=== PATIENT | male | born 1950 | race Caucasian/White ===

== ENCOUNTER 2021-09-14 15:49 | Emergency (ER) | payer MEDICARE, SELFPAY ==
--- NOTE | 2021-09-14 16:47 | ED.MALEGU ---
HPI - Male Genitourinary General Chief complaint: Urogenital-Male Stated complaint: difficulty urinating Time Seen by Provider: 09/14/21 16:23 Source: patient Mode of arrival: ambulatory Limitations: no limitations History of Present Illness HPI Narrative: Patient is a 71-year-old male complaining of unable to fully urinate started today. Patient states that he just dribbling . Patient denies any abdominal pain, back pain, pelvic pain, nausea, vomiting, hematuria, fever or chills. Related Data Home Medications Medication Instructions Recorded Confirmed levetiracetam 1,000 mg tablet 1,000 mg PO Q12H 12/08/19 12/11/19 warfarin 6 mg tablet 5 mg PO 2XW 12/08/19 12/11/19 Allergies Allergy/AdvReac Type Severity Reaction Status Date / Time Penicillins Allergy Unknown Shock Verified 09/14/21 14:42 Review of Systems Review of Systems: All systems reviewed & are unremarkable except as noted in HPI and below Constitutional: Constitutional: Denies body ache(s), Denies chills, Denies excessive sweating, Denies fatigue, Denies fever(s), Denies headache(s), Denies lethargy, Denies malaise, Denies weakness and Denies weight loss Eyes: Eyes: Denies blurry vision, Denies change in vision and Denies loss of vision ENT: Denies dizziness, Denies ear discharge, Denies headache(s), Denies lip swelling, Denies epistaxis, Denies nasal congestion, Denies neck pain, Denies throat swelling and Denies tongue swelling Cardiovascular: Cardiovascular: Denies chest pain, Denies chest pain at rest, Denies chest pain with activity, Denies diaphoresis, Denies rapid heart rate, Denies edema, Denies irregular heart rhythm, Denies lightheadedness, Denies palpitations, Denies dyspnea and Denies dyspnea on exertion Respiratory: Respiratory: Denies chest congestion, Denies cough, Denies hemoptysis, Denies dyspnea and Denies dyspnea on exertion Gastrointestinal: Gastrointestinal: Denies abdominal pain, Denies melena, Denies hematochezia, Denies diarrhea, Denies nausea, Denies vomiting and Denies hematemesis Musculoskeletal: Musculoskeletal: Denies abnormal gait, Denies deformity, Denies joint swelling, Denies limited range of motion, Denies neck pain and Denies numbness Neurologic: Denies Abnormal speech present, Denies abnormal gait, Denies confusion, Denies dizziness, Denies headache(s), Denies focal weakness, Denies loss of vision, Denies numbness, Denies Other visual disturbances, Denies Sensory deficit (Neuro) and Denies weakness Psychiatric: Psychiatric: Denies confusion, Denies depression, Denies auditory hallucinations, Denies homicidal ideation and Denies suicidal ideation Endocrine: Endocrine: Denies cold intolerance, Denies excessive sweating, Denies fatigue, Denies heat intolerance and Denies palpitations Hematologic/Lymphatic: Hematologic/Lymphatic: Denies easy bleeding and Denies easy bruising Allergic/Immunologic: Allergic/Immunologic: Denies lip swelling, Denies throat swelling and Denies tongue swelling PMFSH Past Medical History Medical History Anemia Depression DVT (deep venous thrombosis) Essential (primary) hypertension GERD (gastroesophageal reflux disease) 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
[2021-09-14 18:02] VITALS: BP 171/96; PULSE 81; TEMP 36.6; O2SAT 100
[2021-09-14 18:44] VITALS: BP 138/90; PULSE 81; RESP 18; O2SAT 99
[2021-09-14 19:20] LABS: Add Urine Microscopic? YES; Appearance Urine Cloudy (Clear); Bilirubin Urine 1+ (Negative); Blood Urine 3+ (Negative); Color Urine Amber (Yellow); Glucose Urine UA Negative (Negative); Ketones Urine 2+ mg/dL (Negative); Leukocyte Esterase Ur 1+ LEU/UL (Negative); Mucus Urine Heavy /lpf; Nitrate Urine Negative (Negative); Protein Urine 2+ mg/dL (Negative); RBC Urine >75 /hpf (0-2); Squamous Epithelial Cell Urine Rare /hpf (Few); WBC Urine 51-75 /hpf
[2021-09-14 19:39] VITALS: BP 128/90; PULSE 78; RESP 18; O2SAT 98
[2021-09-14] MEDS: CEPHALEXIN 500 MG CAPSULE PO (19:41)
== END 2021-09-14 20:04 | disposition home or self-care (01) ==
PROVIDERS: Emergency Provider Emergency Medicine; PCP Family Medicine
DX: N30.01 Acute cystitis with hematuria (principal); I10 Essential (primary) hypertension; I69.954 Hemiplegia and hemiparesis following unspecified cerebrovascular disease affecting left non-dominant side; E78.5 Hyperlipidemia, unspecified; I48.0 Paroxysmal atrial fibrillation; G62.9 Polyneuropathy, unspecified; K21.9 Gastro-esophageal reflux disease without esophagitis; Z79.01 Long term (current) use of 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; Z86.2 Personal history of diseases of the blood and blood-forming organs and certain disorders involving the immune mechanism; Z86.718 Personal history of other venous thrombosis and embolism; Z87.891 Personal history of nicotine dependence
CPT/HCPCS: 51702; 81001; 87077; 87086; 87088; 87186; 99283; A9270

== ENCOUNTER → 2022-06-06 13:59 | Outpatient (CLI) | payer MEDICARE, SELFPAY ==
--- NOTE | ~2022-06-06 | XR_ITS ---
XR chest 2V DATE: 06/06/2022 14:47 INDICATION: Cough TECHNIQUE: 2 views COMPARISON: 12/11/2021 view chest FINDINGS: Heart size is within normal limits. Is aortic arch calcification, mild aortic unfolding. No hilar or mediastinal enlargement. Moderate hyperinflation of the lungs. No pulmonary infiltrate or consolidation, pleural effusion or p ulmonary vascular congestion or pneumothorax is detected. IMPRESSION: Bilateral hyperinflation No active cardiac pulmonary disease Aortic atherosclerosis Osteopenia Reviewed, dictated and finalized at location A.
== END ==
PROVIDERS: PCP Family Medicine; Visit Provider Physician Assistant
DX: R05.9 Cough, unspecified (principal); R91.8 Other nonspecific abnormal finding of lung field; I70.0 Atherosclerosis of aorta; M85.88 Other specified disorders of bone density and structure, other site
CPT/HCPCS: 71046

== ENCOUNTER 2022-09-16 10:26 | Emergency (ER) | payer MEDICARE, SELFPAY ==
--- NOTE | ~2022-09-16 | CT_ITS ---
EXAMINATION: CT abdomen pelvis wo con DATE: 09/16/2022 11:04 INDICATION: Back pain and flank pain. TECHNIQUE: Computed tomography (CT) of the abdomen and pelvis was performed without intravenous contr ast. The dose-length product was 1571.63 mGy-cm. Automated exposure control and iterative reconstruct ion technique were employed. COMPARISON: CT dated 12/11/2019. FINDINGS: Cardiomegaly. No significant pleural or pericardial effusion. There are liver cysts. There are cholecystectomy clips. The spleen, pancreas, adrenal glands are unremarkable. There are nonobstru cting left renal stones. There are right ureteral stones with mild hydronephrosis. There are nonobstr ucting right renal stones. There is an intermediate density exophytic right renal mass measuring 1.7 cm which does not appear to be significantly changed from prior CT allowing for differences of techni que, likely a complicated cyst. There is an IVC filter present. Nonobstructive bowel gas pattern. Nor mal appendix. No free air or free fluid. Moderate osteoarthritis of the hips. Severe lumbar spondylos is. The spleen, pancreas, adrenal glands are unremarkable. No significant vascular abnormality. No ly mphadenopathy. IMPRESSION: 1. Proximal right ureteral stones, largest measuring 3 mm with mild hydronephrosis. 2: Nonobstructing bilateral nephrolithiasis. 3: Intermediate density exophytic right renal mass is unchanged allowing for differences of technique from prior study, most likely complicated cysts. Reviewed, dictated and finalized at location B. IMPRESSION: 1. Proximal right ureteral stones, largest measuring 3 mm with mild hydronephro sis. 2: Nonobstructing bilateral nephrolithiasis. 3: Intermediate density exophytic right renal mass is unchanged allowing for di fferences of technique from prior study, most likely complicated cysts.
[2022-09-16 10:33] VITALS: BP 143/103; PULSE 78; RESP 18; TEMP 36.4; O2SAT 100
[2022-09-16 10:55] LABS: Add Urine Microscopic? YES; Appearance Urine Cloudy (Clear); Bilirubin Urine Negative (Negative); Blood Urine 3+ (Negative); Color Urine Amber (Yellow); Glucose Urine UA Negative (Negative); Ketones Urine Trace mg/dL (Negative); Leukocyte Esterase Ur Negative LEU/UL (Negative); Nitrate Urine Negative (Negative); Protein Urine 2+ mg/dL (Negative); RBC Urine >75 /hpf (0-2); Urobilinogen Urine Negative mg/dL (<2.0); WBC Urine 0-3 /hpf
[2022-09-16 11:08] LABS: Specific Grav Ur 1.031 (1.001-1.035)
[2022-09-16 11:25] LABS: Basophils Percent Auto 0.3 % (0.2-1.2); Eosinophils Absolute Auto 0.1 K/mm3 (0-0.3); Eosinophils Percent Auto 1.1 % (0-4.4); Hematocrit 46.5 % (42.0-52.0); Hemoglobin 15.1 g/dL (14.0-18.0); Immature Granulocyte Absolute 0.02 K/mm3 (0.00-0.031); Immature Granulocyte Percent A 0.3 % (0-0.5); Lymphocytes Absolute Auto 2.04 K/mm3 (0.9-3.2); Lymphocytes Percent Auto 28.8 % (18.3-44.2); Mean Corpuscular HGB Conc 32.5 g/dl (32-36); Mean Corpuscular Hemoglobin 29.9 pg (26-34); Mean Corpuscular Volume 92.1 fl (80-100); Mean Platelet Volume 9.1 fl (7.4-10.4); Monocytes Absolute Auto 0.6 K/mm3 (0.1-0.6); Monocytes Percent Auto 8.2 % (2.6-8.5); Neutrophils Absolute Auto 4.3 K/mm3 (1.3-6.7); Neutrophils Percent Auto 61.3 % (45.5-73.1); Platelet Count Result 124 k/mm3 (150-375); Red Blood Count 5.05 M/mm3 (4.6-6.20); Red Cell Distribution Width 14.3 % (11.5-14.5); White Blood Count 7.1 K/mm3 (4.5-10.0)
[2022-09-16] MEDS: MORPHINE SULFATE (*CRX) 4 MG/ML INJ IV PUSH (11:28)
[2022-09-16 11:40] LABS: Partial Thromboplastin Time 41.5 SECONDS (22.3-36.8)
[2022-09-16 11:47] LABS: Alanine Aminotransferase 11 U/L (6-50); Albumin Level 3.5 g/dL (3.5-5.1); Alkaline Phosphatase 84 U/L (38-126); Anion Gap 8 mmol/L (8-16); Aspartate Amino Transferase 16 U/L (17-59); Bilirubin,Total 1.5 mg/dL (0.2-1.3); Blood Urea Nitrogen 27 mg/dL (9-20); Calcium 8.2 mg/dL (8.4-10.2); Carbon Dioxide 25 mmol/L (22-30); Chloride 107 mmol/L (98-107); Estimated CRCL calculation 65 ml/min; Estimated Glomerular Filt Rate > 60; Glucose 101 mg/dL (65-110); Potassium 4.3 mmol/L (3.4-5.0); Sodium 140 mmol/L (137-145)
--- NOTE | 2022-09-16 12:37 | ED.MALEGU ---
HPI - Male Genitourinary General Chief complaint: Urogenital-Male Stated complaint: hematuria Time Seen by Provider: 09/16/22 10:29 History of Present Illness HPI Narrative: Patient presents with severe bilateral flank pain and hematuria that started last night, no burning or pain when he urinates, he has had history of UTIs in the past but this feels different, no history of kidney stones in the past. He is currently on Coumadin. Related Data Home Medications Medication Instructions Recorded Confirmed warfarin 6 mg tablet (Coumadin) 5 mg PO 2XW 12/08/19 04/25/22 diphenhydramine HCl 25 mg tablet 25 mg PO QHS PRN 04/03/22 04/25/22 (Benadryl Allergy) sotalol 120 mg tablet 120 mg PO Q12H 04/25/22 04/25/22 Allergies Allergy/AdvReac Type Severity Reaction Status Date / Time Penicillins Allergy Unknown Shock Verified 09/16/22 10:35 Review of Systems Review of Systems: CONST: No fever. HEENT: No sore throat C/V: No chest pain RESP: No cough GI: Reports abdominal pain : Hematuria M/S: No joint pain. SKIN: No rash. 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 Major depressive disorder, single episode, unspecified 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 hyperlipidemia Peripheral neuropathy Personal history of other venous thrombosis and embolism Pyelonephritis Seizure Strain of lumbar region Unspecified atrial fibrillation Paroxysmal UTI (urinary tract infection) Surgical History Surgical History H/O craniotomy Status post hemorrhagic stroke H/O vasectomy History of cholecystectomy History of repair of anterior cruciate ligament of right knee S/P IVC filter Family History Family History Father Family history of cardiovascular disease Mother Family history of malignant neoplasm of breast in first degree relative Other Cerebrovascular accident Depression Family history of atrial fibrillation Family history of elevated blood lipids Family history of kidney disease Family history of malignant neoplasm of breast Hypertension Social History Social History Social History: The patient lives with his who is a [id number]. Patient desires to be a full code. His 3 daughter. 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 Rarely drinks lifelong nonsmoker. Smoking status: Never smoker Second hand tobacco smoke exposure: No Smoking end date: 11/24/73 Alcohol intake: current Drinks per week: 1 Substance use: never Substance use type: does not use Gender identity (if verbalized by the patient): Male Spiritual care concerns: No Agree to blood products: Yes Exam Narrative: EXAMINATION OF ORGAN SYSTEMS/BODY AREAS: Constitutional: Vital signs per nursing GENERAL: Appears uncomfortable HEAD: Normal with no signs of head trauma. EYES: EOMI, conjunctiva normal ENT: Hearing grossly intact LUNGS: Nonlabored breathing. HEART: [Regular rate and rhythm] ABD: [Soft], [nontender to palpation] BACK: Right CVA tenderness EXT: Normal range of motion SKIN: [No rashes or lesions.] NEURO: [Alert.] PSYCH: Normal affect Course Vital Signs Vital signs: Vital Signs Temperature 97.6 F 09/16/22 10:33 Pulse Rate 78 09/16/22 10:33 Respiratory Rate 18 09/16/22 10:33 Blood Pressure 143/103 H 09/16/22 10:33 Pulse Oximetry 100
[2022-09-16 12:46] VITALS: BP 135/88; PULSE 61; RESP 17; O2SAT 95
== END 2022-09-16 12:51 | disposition home or self-care (01) ==
PROVIDERS: Emergency Provider Emergency Medicine; PCP Family Medicine
DX: N13.2 Hydronephrosis with renal and ureteral calculous obstruction (principal); I48.0 Paroxysmal atrial fibrillation; I10 Essential (primary) hypertension; I69.954 Hemiplegia and hemiparesis following unspecified cerebrovascular disease affecting left non-dominant side; E78.5 Hyperlipidemia, unspecified; G62.9 Polyneuropathy, unspecified; K21.9 Gastro-esophageal reflux disease without esophagitis; Z86.718 Personal history of other venous thrombosis and embolism; Z86.2 Personal history of diseases of the blood and blood-forming organs and certain disorders involving the immune mechanism; Z79.01 Long term (current) use of 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; Z87.440 Personal history of urinary (tract) infections; N28.89 Other specified disorders of kidney and ureter
CPT/HCPCS: 36415; 74176; 80053; 81001; 85025; 85610; 85730; 96374; 99284; J2270

== ENCOUNTER 2022-09-18 06:23 | Observation (INO) | payer MEDICARE, SELFPAY ==
[2022-09-18] VITALS (34 sets, daily range): BP systolic 130–163; BP diastolic 83–101; PULSE 64–81; RESP 10–20; TEMP 36.5–37.3; O2SAT 94–100
--- NOTE | ~2022-09-18 | XR_ITS ---
EXAMINATION: XR retrograde pyelo w/stent RT DATE: 09/18/2022 16:16 INDICATION: Right internal ureteral stent placement TECHNIQUE: Fluoroscopic images from a right internal ureteral stent placement are submitted for obey zaragoza 40 seconds of fluoroscopy time. 6 fluoroscopic images. FINDINGS: There is a right double-J internal ureteral stent projecting in expected position, with proximal Sparkill loop at the level of the renal pelvis and distal loop in the pelvis within the bladder lumen. There is an IVC filter present. IMPRESSION: 1. Right internal ureteral stent placement. Please refer to real-time procedural findings for detai ls. Reviewed, dictated and finalized at location B. IMPRESSION: 1. Right internal ureteral stent placement. Please refer to real-time procedu ral findings for details.
--- NOTE | ~2022-09-18 | CT_ITS ---
EXAMINATION: CT abdomen pelvis wo con DATE: 09/18/2022 07:53 INDICATION: Flank pain. History of kidney stones. TECHNIQUE: Computed tomography (CT) of the abdomen and pelvis was performed without intravenous contr ast. The dose-length product was 720.30 mGy-cm. Automated exposure control and iterative reconstructi on technique were employed. COMPARISON: Comparison to multiple prior studies sequentially, with oldest reviewed study dated 03/2018. . FINDINGS: There is dependent atelectasis. No significant pleural or pericardial effusion. Borderline heart size. There are liver cysts, largest measuring 3 cm. Status post cholecystectomy. Th e spleen, pancreas, adrenal glands are unremarkable. There is a exophytic right renal cyst measuring 1.9 cm. No significant interval change. There is a 4 mm distal right ureteral stone with mild hydrone phrosis. There is an IVC filter present. There are nonobstructing left renal stones. Nonobstructive b owel gas pattern. There is atrophy of the left rectus muscles. There is a right inguinal hernia conta ining nonobstructed small bowel. No free air or free fluid. Severe lumbar spondylosis. Stable lytic l esion of L2, possibly hemangioma. No acute osseous abnormality. Normal appendix. Generalized deminera lization. Moderate osteoarthritis of the hips. IMPRESSION: 1. Distal right ureteral stone measuring 4 mm with mild hydronephrosis. 2: Nonobstructing left nephrolithiasis. 3: Right inguinal hernia containing nonobstructed small bowel. Reviewed, dictated and finalized at location B.
--- NOTE | 2022-09-18 07:21 | ED.BACK ---
HPI - Back Pain/Injury General Chief Complaint: Back Pain/Injury Stated Complaint: Kidney stones, R side Time Seen by Provider: 09/18/22 07:21 Source: patient and family Mode of arrival: ambulatory Limitations: no limitations History of Present Illness HPI Narrative: 72 years old white male came to the emergency room by private car with his complaining of right flank pain which started 4 days ago, 1 day later patient came to our emergency room and CT scan showed right proximal ureter, 3 mm stone. Patient was discharged home to follow-up with urologist, the first appointment will be in 2 weeks. Patient could not tolerate the pain anymore, home medicine does not work, he denies any fever, chills, nausea, vomiting. Related Data Home Medications Medication Instructions Recorded Confirmed warfarin 6 mg tablet (Coumadin) 5 mg PO 2XW 12/08/19 04/25/22 diphenhydramine HCl 25 mg tablet 25 mg PO QHS PRN 04/03/22 04/25/22 (Benadryl Allergy) sotalol 120 mg tablet 120 mg PO Q12H 04/25/22 04/25/22 Allergies Allergy/AdvReac Type Severity Reaction Status Date / Time Penicillins Allergy Unknown Shock Verified 09/16/22 10:35 Review of Systems Review of Systems: All systems reviewed & are unremarkable except as noted in HPI and below PMFSH Past Medical History Medical History Anemia Depression DVT (deep venous thrombosis) Essential (primary) hypertension GERD (gastroesophageal reflux disease) Hemiplegia and hemiparesis following unspecified cerebrovascular disease affecting left non-dominant side Hepatitis C antibody test negative (10/25/20) Lipoprotein deficiency longterm (current) use of 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 Major depressive disorder, single episode, unspecified 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 hyperlipidemia Peripheral neuropathy Personal history of other venous thrombosis and embolism Pyelonephritis Seizure Strain of lumbar region Unspecified atrial fibrillation Paroxysmal UTI (urinary tract infection) Surgical History Surgical History H/O craniotomy Status post hemorrhagic stroke H/O vasectomy History of cholecystectomy History of repair of anterior cruciate ligament of right knee S/P IVC filter Family History Family History Father Family history of cardiovascular disease Mother Family history of malignant neoplasm of breast in first degree relative Other Cerebrovascular accident Depression Family history of atrial fibrillation Family history of elevated blood lipids Family history of kidney disease Family history of malignant neoplasm of breast Hypertension Social History Social History Social History: The patient lives with his who is a [id number]. Patient desires to be a full code. His 3 daughter. 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 Rarely drinks lifelong nonsmoker. Smoking status: Never smoker Second hand tobacco smoke exposure: No Smoking end date: 11/24/73 Alcohol intake: current Drinks per week: 1 Substance use: never Substance use type: does not use Gender identity (if verbalized by the patient): Male Spiritual care concerns: No Agree to blood products: Yes Exam Narrative: General appearance: Well-developed, well-nourished Skin: Normal color Head: Normocephalic, nontraumatic Eyes: Clear conjunctiva ENT: Oropharynx normal, ears normal, nose normal Neck: Supple, nontender Chest and respiratory: Airway patent, no respiratory distress, no accessory muscle use Heart: Regular rate/rhythm Abdomen: Soft, right flank tenderness, no organomegaly, quiet bowel sounds Vascular: Normal peripheral pulses, normal capillary refill. Musculoskeletal: Normal range of motion, nontender back Neurologic: Alert
[2022-09-18 07:26] LABS: Basophils Absolute Auto 0.1 K/mm3 (0.0-0.1); Basophils Percent Auto 0.5 % (0.2-1.2); Eosinophils Absolute Auto 0.1 K/mm3 (0-0.3); Eosinophils Percent Auto 1.3 % (0-4.4); Hematocrit 48.3 % (42.0-52.0); Hemoglobin 15.5 g/dL (14.0-18.0); Immature Granulocyte Absolute 0.03 K/mm3 (0.00-0.031); Immature Granulocyte Percent A 0.3 % (0-0.5); Lymphocytes Absolute Auto 2.29 K/mm3 (0.9-3.2); Lymphocytes Percent Auto 24.5 % (18.3-44.2); Mean Corpuscular HGB Conc 32.1 g/dl (32-36); Mean Corpuscular Hemoglobin 29.9 pg (26-34); Mean Corpuscular Volume 93.2 fl (80-100); Mean Platelet Volume 9.5 fl (7.4-10.4); Monocytes Absolute Auto 0.7 K/mm3 (0.1-0.6); Monocytes Percent Auto 7.4 % (2.6-8.5); Neutrophils Absolute Auto 6.2 K/mm3 (1.3-6.7); Platelet Count Result 153 k/mm3 (150-375); Red Blood Count 5.18 M/mm3 (4.6-6.20); Red Cell Distribution Width 14.6 % (11.5-14.5); White Blood Count 9.4 K/mm3 (4.5-10.0)
[2022-09-18] MEDS: HYDROmorphone HCL INJ (*CRX) 1 MG/ML SYR 0.5 MG IV PUSH ×3 (07:29→09:13)
[2022-09-18] MEDS: SODIUM CHLORIDE 0.9% IV 1,000 ML 999 ML IV CONT (07:29)
[2022-09-18] MEDS: ONDANSETRON INJ 4 MG/2 ML VIAL IV PUSH (07:30)
[2022-09-18 07:36] LABS: Alanine Aminotransferase 10 U/L (6-50); Albumin Level 3.8 g/dL (3.5-5.1); Alkaline Phosphatase 79 U/L (38-126); Anion Gap 12 mmol/L (8-16); Aspartate Amino Transferase 16 U/L (17-59); Bilirubin,Total 0.9 mg/dL (0.2-1.3); Blood Urea Nitrogen 29 mg/dL (9-20); Calcium 8.2 mg/dL (8.4-10.2); Carbon Dioxide 26 mmol/L (22-30); Chloride 106 mmol/L (98-107); Estimated Glomerular Filt Rate 60; Glucose 99 mg/dL (65-110); Lipase 76 U/L (23-300); Sodium 144 mmol/L (137-145)
[2022-09-18 07:47] LABS: Add Urine Microscopic? YES; Appearance Urine Cloudy (Clear); Bilirubin Urine Negative (Negative); Blood Urine 3+ (Negative); Color Urine Amber (Yellow); Glucose Urine UA Negative (Negative); Ketones Urine Trace mg/dL (Negative); Leukocyte Esterase Ur Negative LEU/UL (Negative); Mucus Urine Rare /lpf; Nitrate Urine Negative (Negative); Protein Urine 2+ mg/dL (Negative); RBC Urine >75 /hpf (0-2); Specific Grav Ur 1.029 (1.001-1.035); Squamous Epithelial Cell Urine Occasional /hpf (Few); Urobilinogen Urine Negative mg/dL (<2.0); WBC Urine 16-20 /hpf
--- NOTE | 2022-09-18 10:26 | WPDANESEPPF ---
Anes - Initial Pre Proc Eval Procedure: Operation Date: 09/18/22 16:00 Proposed Procedures p Cystoscopy, Retrograde Pyelogram, Possible Right Stone Extraction, Possible Right Stent Placement; Possible Holmium Laser(Right) - Trace Krishnamurthy MD Date/Time: 09/18/22 10:26 Surgeon: Suzy Casey DO Pre Op Diagnosis: rigth ureterolithiasis,hematuria Patient Data Age: 72 Gender: M Height: Weight: 97.7 kg Last Vital Signs Temp 36.7 C 09/18/22 06:27 Pulse 70 09/18/22 10:17 Resp 12 09/18/22 10:15 BP 150/101 H 09/18/22 10:17 Pulse Ox 94 09/18/22 10:15 Allergies Allergy/AdvReac Type Severity Reaction Status Date / Time Penicillins Allergy Unknown Shock Verified 09/16/22 10:35 Home Medications Medication Instructions Recorded Confirmed Type warfarin 6 mg tablet (Coumadin) 5 mg PO 2XW 12/08/19 09/18/22 History acetaminophen 500 mg tablet 1,000 mg PO Q6H PRN Mild Pain 12/17/19 09/18/22 Rx (1-3) Or Fever #30 tabs tamsulosin 0.4 mg capsule (Flomax) 0.4 mg PO DAILY #90 caps 02/18/22 09/18/22 Rx simvastatin 40 mg tablet See Rx Instructions .Route 02/25/22 09/18/22 Rx .COMPLEX #90 tabs diphenhydramine HCl 25 mg tablet 25 mg PO QHS PRN Allergy Symptoms 04/03/22 09/18/22 History (Benadryl Allergy) fluticasone propionate 50 See Rx Instructions .Route 04/03/22 09/18/22 Rx mcg/actuation nasal .COMPLEX #48 grams spray,suspension sotalol 120 mg tablet 120 mg PO Q12H 04/25/22 09/18/22 History levetiracetam 1,000 mg tablet See Rx Instructions .Route 05/22/22 09/18/22 Rx .COMPLEX #180 tabs fluticasone 250 mcg-salmeterol 50 1 inh inhalation BID #60 ea 06/06/22 09/18/22 Rx mcg/dose blistr powdr for inhalation (Advair Diskus) benzonatate 200 mg capsule 200 mg PO TID PRN cough #30 caps 06/18/22 09/18/22 Rx omeprazole 20 mg capsule,delayed See Rx Instructions .Route 08/26/22 09/18/22 Rx release .COMPLEX #90 caps irbesartan 75 mg tablet See Rx Instructions .Route 09/02/22 09/18/22 Rx .COMPLEX #90 tabs finasteride 5 mg tablet See Rx Instructions .Route 09/09/22 09/18/22 Rx .COMPLEX #90 tabs hydrocodone 5 mg-acetaminophen 325 1 tablet PO Q6H PRN pain #12 tabs 09/16/22 09/18/22 Rx mg tablet Laboratory Tests 09/18/22 09/18/22 09/18/22 07:13 07:13 07:27 WBC 9.4 K/mm3 K/mm3 (4.5-10.0) RBC 5.18 M/mm3 M/mm3 (4.6-6.20) Hgb 15.5 g/dL g/dL (14.0-18.0) Hct 48.3 % % (42.0-52.0) MCV 93.2 fl fl (80-100) MCH 29.9 pg pg (26-34) MCHC 32.1 g/dl g/dl (32-36) RDW 14.6 % H % (11.5-14.5) Plt Count 153 k/mm3 k/mm3 (150-375) MPV 9.5 fl fl (7.4-10.4) Immature Gran % (Auto) 0.3 % % (0-0.5) Neut % (Auto) 66.0 % % (45.5-73.1) Lymph % (Auto) 24.5 % % (18.3-44.2) [place] % (Auto) 7.4 % % (2.6-8.5) Eos % (Auto) 1.3 % % (0-4.4) Baso % (Auto) 0.5 % % (0.2-1.2) Lymph # (Auto) 2.29 K/mm3 K/mm3 (0.9-3.2) [place] # (Auto) 0.7 K/mm3 H K/mm3 (0.1-0.6) Eos # (Auto) 0.1 K/mm3 K/mm3 (0-0.3) Baso # (Auto) 0.1 K/mm3 K/mm3 (0.0-0.1) Abs Immat Gran (auto) 0.03 K/mm3 K/mm3 (0.00-0.031) Absolute Neuts (auto) 6.2 K/mm3 K/mm3 (1.3-6.7) Absolute Nucleated RBC 0.0 K/mm3 K/mm3 (0.0-0.012) Nucleated RBC % 0.0 % % (0.0-0.2) Sodium 144 mmol/L mmol/L (137-145) Potassium 4.0 mmol/L mmol/L (3.4-5.0) Chloride 106 mmol/L mmol/L (98-107) Carbon Dioxide 26 mmol/L mmol/L (22-30) Anion Gap 12 mmol/L mmol/L (8-16) BUN 29 mg/dL H mg/dL (9-20) Creatinine 1.20 mg/dL mg/dL (0.7-1.3) Estim Creat Clear Calc Not Reportable Estimated GFR 60 (59 - ) Glucose 99 mg/dL mg/dL (65-110) Calcium 8.2 mg/dL L mg/dL (8.4-10.2) Total Bilirubi
--- NOTE | 2022-09-18 10:59 | ADMGEN ---
This patient, René Bowman, was admitted to [facility] Surg Room 325-01 at 1040. Patient/family oriented to hospital policies and general routines including ID bracelet, bed and alarms, visiting hours, pain management, procedures, bathroom and other care routines, personal items, smoking policy, room service/diet, and visiting hours. Information on how to activate the Rapid Response Team has been discussed. Patient/Family are encouraged to report perceived risks to care and to ask questions if they do not understand what they are told or what they should do.
--- NOTE | 2022-09-18 11:37 | ECG_ITS ---
Measurements Intervals [place] Rate: 73 P: 32 MI: 160 QRS: -41 QRSD: 88 T: 106 QT: 399 QTc: 441 Interpretive Statements SINUS RHYTHM LOW QRS VOLTAGE IN PRECORDIAL LEADS [QRS DEFLECTION < 1.0 mV IN CHEST LEADS] INFERIOR MYOCARDIAL INFARCTION , PROBABLY OLD [40+ ms Q WAVE AND/OR ST/T ABNORMALITY IN II/aVF] MODERATE T-WAVE ABNORMALITY, CONSIDER ANTEROLATERAL ISCHEMIA [-0.1+ mV T WAVE IN V3-V6] Electronically Signed On 09-18-2022 13:17:58 CDT by Jose Carlos Quiroz M.D.
--- NOTE | 2022-09-18 13:16 | PM.IMHP ---
H&P: HPI History of Present Illness Date/Time: 09/18/22 13:16 Chief Complaint: Right flank pain Narrative: This is a 72-year-old male patient who came to the emergency room complaints of right flank pain. He was brought in by personal vehicle by his . The patient's discomfort started approximately 4 days ago. The patient came to the emergency room on 09/16/2022 and the patient was found to have a 3 mm stone in the right proximal ureter BS CT scan. The patient was discharged home to follow-up with urology in the next 2 weeks. However the patient was not able to tolerate the discomfort. His home medications were no longer working for him. He denied any fever chills or nausea vomiting. Urine shows greater than 75 RBCs and 16-[address]bc's[address] Ab[address] pelvis [address] was read as distal right ureteral stone measuring 4 mm with mild hydronephrosis. Nonobstructing left nephrolithiasis. Right inguinal hernia containing nonobstructive small bowel. The patient was given IV fluids, Dilaudid, and Zofran in the emergency room. Urology has been consulted. This may be a short-stay summary as the patient may be discharged to home after his procedure. The patient was admitted for observation on the date of service of 09/18/2022. Review of Systems Review of Systems: The HPI All systems reviewed & are unremarkable except as noted in HPI and below Constitutional: Constitutional: Reports as per HPI and Reports no additional constitutional complaints Eyes: Eyes: Reports as per HPI and Reports no additional eye complaints ENT: Reports system reviewed and no additional complaints, except as documented and Reports Normal hearing present Cardiovascular: Cardiovascular: Reports no additional cardiovascular complaints Respiratory: Respiratory: Reports no additional respiratory complaints and Reports no additional respiratory complaints Gastrointestinal: Gastrointestinal: Reports as per HPI and Reports no additional gastrointestinal complaints Musculoskeletal: Musculoskeletal: Reports no additional musculoskeletal complaints Integumentary/Breasts: Skin/Breast: Reports system reviewed and no additional complaints, except as docu and Reports as per HPI Neurologic: Reports system reviewed and no additional complaints, except as documented, Reports as per HPI and Reports Normal hearing present Psychiatric: Psychiatric: Reports no additional psychiatric complaints and Reports as per HPI Endocrine: Endocrine: Reports no additional endocrine complaints Hematologic/Lymphatic: Hematologic/Lymphatic: Reports no additional hematologic/lymphatic complaints Allergic/Immunologic: Allergic/Immunologic: Reports no additional allergic/immunologic complaints PMFSH Past Medical History Medical History Anemia Depression DVT (deep venous thrombosis) Essential (primary) hypertension GERD (gastroesophageal reflux disease) Hemiplegia and hemiparesis following unspecified cerebrovascular disease affecting left non-dominant side Hepatitis C antibody test negative (10/25/20) Lipoprotein deficiency [facility] (current) use of 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 Major depressive disorder, single episode, unspecified 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 hyperlipidemia Peripheral neuropathy Personal history of other venous thrombosis and embolism Pyelonephritis Seizure Strain of lumbar region Unspecified atrial fibrillation Paroxysmal UTI (urinary tract infection) Surgical History Surgical History H/O craniotomy Status post hemorrhagic stroke H/O vasectomy History of cholecystectomy History of repair of anterior cruciate ligament of right knee S/P IVC filter Family History Family History Father Family history of cardiovascular disease Mother Family history of malignant neoplasm of breast in first degree relative Other
--- NOTE | 2022-09-18 14:53 | WPDURCON ---
Assessment and Plan Assessment and plan (1) Kidney stone on right side: Code(s): N20.0 - Calculus of kidney Status: Acute Assessment and Plan: Plan to go to the OR this afternoon with Dr. Krishnamurthy. Obtain consent: Cystoscopy, right ureteroscopy with stone extraction, possible right stent placement, right retrograde pyelogram, possible holmium laser. Keep NPO. Patient could be discharged home after surgery if tolerating diet and pain per hospitalist. Left non obstructive stone is not of concern at this time, will plan to monitor yearly with imaging. (2) Hematuria: Code(s): R31.9 - Hematuria, unspecified Status: Acute Urology Consult Note HPI Date Seen: 09/18/22 Time Seen: 11:00 Requesting Physician: Suzy Casey DO Primary Care Provider: Jose Jacome MD Consult Narrative Reason for consult: Right Distal Ureteral Stone Narrative: René Bowman is a 72 year old male who presented initially to the ER on 09/16/22 with acute onset of bilateral flank pain that started the previous day and hematuria. He was diagnosed with a proximal right ureteral stone via CT scan measuring 4mm. He was discharged home with pain medications and told to f/u with a urologist. He states his pain worsened over the past two days and he was unable to tolerate it at home. He then proceeded to the ER this morning for ongoing, worsening right flank pain that radiates to the RLQ. He is afebrile, has a WBC of 9.4, creatinine of 1.20 and a UA showing only RBC's but no indication of a UTI. He denies dysuria, frequency, urgency or incontinence. He is still having hematuria. He has no history of stones previously. He does mention a history of BPH. A repeat CT shows movement of the stone to the right distal ureter with hydronephrosis present and a non obstructing left renal stone. His also reports at the bedside a history of seizures and a stroke which he has left sided weakness from. Review of Systems Cardiovascular: Cardiovascular: Denies chest pain Respiratory: Respiratory: Reports no additional respiratory complaints Gastrointestinal: Gastrointestinal: Reports abdominal pain, Denies nausea and Denies vomiting Genitourinary: Genitourinary: Reports hematuria, Denies dysuria, Reports flank pain, Denies urinary frequency, Denies urinary incontinence and Denies urinary urgency [facility] Past Medical History Medical History Anemia Depression DVT (deep venous thrombosis) Essential (primary) hypertension GERD (gastroesophageal reflux disease) Hemiplegia and hemiparesis following unspecified cerebrovascular disease affecting left non-dominant side Hepatitis C antibody test negative (10/25/20) Lipoprotein deficiency 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 (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) use of 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 Major depressive disorder, single episode, unspecified 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 hyperlipidemia Peripheral neuropathy Personal history of other venous thrombosis and embolism Pyelonephritis Seizure Strain of lumbar region Unspecified atrial fibrillation Paroxysmal UTI (urinary tract infection) Surgical History Surgical History H/O craniotomy Status post hemorrhagic stroke H/O vasectomy History of cholecystectomy History of repair of anterior cruciate ligament of right knee S/P IVC filter Family History Family History Father Family history of cardiovascular disease Mother Family history of malignant neoplasm of breast in first degree relative Other Cerebrovascular accident Depression Family history of atrial fibrillation Family history of elevated blood lipids Family history of kidney disease Family history of malignant neoplasm of breast Hypertension Social History Social History Social History:
[2022-09-18] MEDS: LACTATED RINGERS 1,000 ML 30 ML IV CONT (15:02)
--- NOTE | 2022-09-18 15:29 | WPDHPUPDATE1 ---
History and Physical Update Update Date/Time: 09/18/22 15:29 History and Physical has been reviewed, including an updated exam of the patient. There are NO changes in the patient's condition. Risks, benefits, and alternatives have been discussed and questions answered. Patient agrees to proceed with procedure.
[2022-09-18] MEDS: ceFAZolin 2 GM/D5W 50 ML 2 GM/50 ML BAG IVPB (15:42)
--- NOTE | 2022-09-18 15:43 | SUR.PREOP ---
DR UNGER ASKED ME TO ORDER GENTAMYCIN, THEN CHANGED IT TO ANCEF.
[2022-09-18] MEDS: LIDOCAINE HCL 2% GEL UROJET 10 ML PKG MUCOUS MEM (16:01)
--- NOTE | 2022-09-18 16:20 | P.OP_ITS ---
Procedure Note - Detailed Date of Procedure 09/18/22 Pre-op Diagnosis Right ureteral stone Post-op Diagnosis Same Procedure Performed Cystoscopy, right ureteroscopy, stone extraction, retrograde pyelogram, right ureteral stent Surgeon Trace Krishnamurthy MD Indications Right distal ureteral stone Findings Right distal ureteral stone removed Description of Procedure Informed consent was obtained. Patient taken the operating. He was given p reoperative IV antibiotics. He was induced anesthesia. He was placed in the dorsal lithotomy position. He was prepped and draped in normal sterile fashion. We inserted a 22 F cystoscope through the urethra into the bladder. Inspection of the bed revealed mild trabeculation. The patient has a small bilobar prostatic hyperplasia. The patient had bilateral orthotopic orifices. We cannulated the right ureteral orifice and then dilate with an 810 coaxial dilator. We then inserted a semi rigid ureteral scope into the distal ureter. We encountered the stone approximately 3cm above the ureterovesical junction and were able to grasp it with a ZeroTip Nitinol basket and remove the stone. We then readvanced the ureteroscope and inspected the distal 3/4 of the ureter there is no residual stone identified. Retrograde pyelogram revealed moderate right hydronephrosis. There was no extravasation. There was some irritation/erythema at the area of stone impaction. We elected to place a right the ureteral stent in place a 4.8 variable length stent with a curl in the renal pelvis and coronal bladder. Bladder was emptied 10cc lidocaine was instilled patient was awakened taken recovery room stable condition Complications No immediate complications Condition Stable Disposition PACU
[2022-09-18] MEDS: levETIRAcetam 500 MG TABLET 1000 MG BY MOUTH ×2 (17:58→20:25)
[2022-09-18] MEDS: SOTALOL HCL 40 MG TABLET PO ×2 (17:58→20:25)
[2022-09-18] MEDS: SIMVASTATIN 20 MG TABLET 40 MG BY MOUTH (17:58)
[2022-09-18] MEDS: IRBESARTAN 75 MG TABLET BY MOUTH (17:59)
[2022-09-18] MEDS: SOTALOL HCL 80 MG TABLET PO ×2 (17:59→20:31)
[2022-09-18] MEDS: LACTATED RINGERS 1,000 ML 125 ML IV CONT ×2 (18:00→18:06)
[2022-09-18 18:55] LABS: INR 2.6; Prothrombin Time 26.8 Seconds (11.1-14.7)
[2022-09-18] MEDS: HYDROcodone/acetaminophen (*CRX) 5-325 MG TABLET 1 TAB PO (19:43)
[2022-09-18] MEDS: FLUTICASONE/SALMETEROL 115-21 MCG INHALER 1 PUFF 2 PUFF INHALATION (21:13)
[2022-09-19] MEDS: HYDROcodone/acetaminophen (*CRX) 5-325 MG TABLET 1 TAB PO ×2 (03:09→08:54)
[2022-09-19 05:50] VITALS: BP 108/67; PULSE 69; RESP 20; TEMP 36.8; O2SAT 97
[2022-09-19 06:27] LABS: Basophils Percent Auto 0.1 % (0.2-1.2); Immature Granulocyte Absolute 0.03 K/mm3 (0.00-0.031); Immature Granulocyte Percent A 0.3 % (0-0.5); Lymphocytes Absolute Auto 1.56 K/mm3 (0.9-3.2); Lymphocytes Percent Auto 14.5 % (18.3-44.2); Mean Corpuscular HGB Conc 31.8 g/dl (32-36); Mean Corpuscular Hemoglobin 29.7 pg (26-34); Mean Corpuscular Volume 93.4 fl (80-100); Mean Platelet Volume 9.8 fl (7.4-10.4); Monocytes Absolute Auto 0.6 K/mm3 (0.1-0.6); Monocytes Percent Auto 5.4 % (2.6-8.5); Neutrophils Absolute Auto 8.6 K/mm3 (1.3-6.7); Neutrophils Percent Auto 79.7 % (45.5-73.1); Platelet Count Result 133 k/mm3 (150-375); Red Blood Count 4.71 M/mm3 (4.6-6.20); Red Cell Distribution Width 14.8 % (11.5-14.5); White Blood Count 10.8 K/mm3 (4.5-10.0)
[2022-09-19 06:32] LABS: INR 2.8
[2022-09-19 06:38] LABS: Alanine Aminotransferase 10 U/L (6-50); Albumin Level 3.4 g/dL (3.5-5.1); Alkaline Phosphatase 71 U/L (38-126); Anion Gap 9 mmol/L (8-16); Aspartate Amino Transferase 17 U/L (17-59); Bilirubin,Total 0.9 mg/dL (0.2-1.3); Blood Urea Nitrogen 25 mg/dL (9-20); Calcium 8.1 mg/dL (8.4-10.2); Carbon Dioxide 21 mmol/L (22-30); Chloride 108 mmol/L (98-107); Estimated Glomerular Filt Rate 60; Glucose 109 mg/dL (65-110); Potassium 4.5 mmol/L (3.4-5.0); Sodium 138 mmol/L (137-145)
[2022-09-19 06:43] LABS: Lactic Acid Reflex 1.1 mmol/L (0.7-2.0)
[2022-09-19] MEDS: FLUTICASONE/SALMETEROL 115-21 MCG INHALER 1 PUFF 2 PUFF INHALATION (08:22)
[2022-09-19 08:27] VITALS: PULSE 75; RESP 18
[2022-09-19 08:29] VITALS: PULSE 75; O2SAT 93
[2022-09-19] MEDS: BENZONATATE 100 MG CAPSULE 200 MG PO (08:55)
[2022-09-19] MEDS: levETIRAcetam 500 MG TABLET 1000 MG BY MOUTH (08:55)
[2022-09-19] MEDS: IRBESARTAN 75 MG TABLET BY MOUTH (08:55)
[2022-09-19 08:56] VITALS: PULSE 74
[2022-09-19] MEDS: SOTALOL HCL 80 MG TABLET PO (08:56)
[2022-09-19] MEDS: SOTALOL HCL 40 MG TABLET PO (08:56)
[2022-09-19] MEDS: TAMSULOSIN HCL 0.4 MG CAPSULE PO (08:56)
[2022-09-19] MEDS: PANTOPRAZOLE 40 MG TABLET PO (08:56)
[2022-09-19] MEDS: SIMVASTATIN 20 MG TABLET 40 MG BY MOUTH (08:56)
[2022-09-19] MEDS: FINASTERIDE 5 MG TABLET PO (08:57)
[2022-09-19] MEDS: FLUTICASONE PROPIONATE 0.05% NA SPR 16 GM BTL (*BKC) 2 SPRAY NASAL (08:57)
--- NOTE | 2022-09-19 09:19 | P.PNAN_ITS ---
Anes - Prog Note Post-Op Date/Time: 09/19/22 09:19 Vital Signs: Last Vital Signs Temp 36.8 C 09/19/22 05:50 Pulse 74 09/19/22 08:56 Resp 18 09/19/22 08:27 BP 108/67 09/19/22 05:50 Pulse Ox 93 09/19/22 08:29 O2 Del Method Room Air 09/19/22 08:29 O2 Flow Rate 6 09/18/22 16:16 Pain Score (VAS): 0 I/O: Intake & Output 09/18/22 09/19/22 09/19/22 23:59 07:59 15:59 Intake Total 1190 100 Output Total 600 250 Balance 590 -150 Laboratory Tests 09/19/22 05:51 09/19/22 05:51 09/18/22 09/19/22 09/19/22 18:37 05:51 05:51 WBC 10.8 H RBC 4.71 Hgb 14.0 Hct 44.0 MCV 93.4 MCH 29.7 MCHC 31.8 L RDW 14.8 H Plt Count 133 L MPV 9.8 Immature Gran % (Auto) 0.3 Neut % (Auto) 79.7 H Lymph % (Auto) 14.5 L [place] % (Auto) 5.4 Eos % (Auto) 0.0 Baso % (Auto) 0.1 L Lymph # (Auto) 1.56 [place] # (Auto) 0.6 Eos # (Auto) 0.0 Baso # (Auto) 0.0 Abs Immat Gran (auto) 0.03 Absolute Neuts (auto) 8.6 H Absolute Nucleated RBC 0.0 Nucleated RBC % 0.0 PT 26.8 H D INR 2.6 Sodium 138 Potassium 4.5 Chloride 108 H Carbon Dioxide 21 L Anion Gap 9 BUN 25 H Creatinine 1.20 Estim Creat Clear Calc Not Reportable Estimated GFR 60 Glucose 109 Lactic Acid Calcium 8.1 L Magnesium 2.0 Total Bilirubin 0.9 AST 17 ALT 10 Alkaline Phosphatase 71 Total Protein 6.0 L Albumin 3.4 L 09/19/22 09/19/22 05:51 05:51 WBC RBC Hgb Hct MCV MCH MCHC RDW Plt Count MPV Immature Gran % (Auto) Neut % (Auto) Lymph % (Auto) [place] % (Auto) Eos % (Auto) Baso % (Auto) Lymph # (Auto) [place] # (Auto) Eos # (Auto) Baso # (Auto) Abs Immat Gran (auto) Absolute Neuts (auto) Absolute Nucleated RBC Nucleated RBC % PT 29.0 H INR 2.8 Sodium Potassium Chloride Carbon Dioxide Anion Gap BUN Creatinine Estim Creat Clear Calc Estimated GFR Glucose Lactic Acid 1.1 Calcium Magnesium Total Bilirubin AST ALT Alkaline Phosphatase Total Protein Albumin Patient Feedback: Patient satisfied with anesthetic care.
[2022-09-19 14:00] VITALS: BP 120/66; PULSE 78; RESP 16; TEMP 36.6; O2SAT 96
--- NOTE | 2022-09-19 15:25 | PM.DS ---
DS: Admitting Diagnosis Discharge Date 09/19/22 Admitting Diagnosis Abdominal pain DS: Discharge Diagnosis Discharge Diagnosis (1) Kidney stone on right side: Code(s): N20.0 - Calculus of kidney Status: Acute (2) Hemiplegia and hemiparesis following unspecified cerebrovascular disease affecting left non-dominant side: Code(s): I69.954 - Hemiplegia and hemiparesis following unspecified cerebrovascular disease affecting left non-dominant side Status: Acute (3) Essential (primary) hypertension: Code(s): I10 - Essential (primary) hypertension Status: Acute (4) Major depressive disorder, single episode, unspecified: Qualifiers: Active/Remission status: remission status unspecified Qualified Code(s): F32.9 - Major depressive disorder, single episode, unspecified Code(s): F32.9 - Major depressive disorder, single episode, unspecified Status: Acute (5) care home (current) use of 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: Code(s): Z79.01 - care home (current) use of 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 Status: Acute (6) Personal history of other venous thrombosis and embolism: Code(s): Z86.718 - Personal history of other venous thrombosis and embolism Status: Acute (7) Unspecified atrial fibrillation: Qualifiers: Atrial fibrillation type: paroxysmal Qualified Code(s): I48.0 - Paroxysmal atrial fibrillation Code(s): I48.91 - Unspecified atrial fibrillation Status: Chronic (8) BPH loc w urin obs/LUTS: Code(s): N40.1 - Benign prostatic hyperplasia with lower urinary tract symptoms Status: Acute (9) 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 hyperlipidemia: Code(s): E78.5 - Hyperlipidemia, unspecified Status: Acute (10) Seizure disorder: Code(s): G40.909 - Epilepsy, unspecified, not intractable, without status epilepticus Status: Acute DS: Summary Hospital Course Reason for hospitalization: 72yo male patient who came to the emergency room complaints of right flank pain.?Please see H&P for details. Hospital Course: The patient came to the emergency room on 09/16/2022 and the patient was found to have a 3 mm stone in the right proximal ureter.? The patient was discharged home to follow-up with urology in the next 2 weeks.? However the patient was not able to tolerate the discomfort and he returned to the ED.? Urine shows greater than 75 RBCs and 16-20 wbc's.? Abdominal pelvis CT was read as distal right ureteral stone measuring 4 mm with mild hydronephrosis.? Nonobstructing left nephrolithiasis.? Right inguinal hernia containing nonobstructive small bowel.? The patient was given IV fluids, Dilaudid, and Zofran in the emergency room.? Urology was consulted.? He underwent cystoscopy, right ureteroscopy, stone extraction, retrograde pyelogram with right ureteral stent placement. He toelrted the procedure well. His pain improved. He did well and was able to be discharged home on 09/19/22. Status at Discharge Cognitive/behavioral status at discharge: stable Time Spent with Patient Time attestation: Total time spent providing and/or coordinating discharge services: 32 minutes Time spent: Greater than 30 minutes Exam Narrative: AF 97.9 120/66 78 16 96% ra Gen - NARD Chest - CTA bilaterally, nml RR CV - RRR S1/S2 Abd - Soft, NT/ND, Positive BS Ext - No pedal edema Neuro - left hemiplegia Psych - Nml mood and affect Skin - Warm and dry DS: Data Data Completed and Pending Pending studies at discharge: Pending at discharge 09/18/22 16:04 Surgical [PTH] Routine Labs on day of discharge: Labs from last 24 hours 09/19/22 09/19/22 09/19/22 05:51 05:51 05:51 WBC RBC Hgb Hct MCV MCH MCHC RDW Plt Count MPV Immature Gran % (Auto) Neut % (Auto) Lymph % (Auto) [place] % (Auto) Eos % (Auto) Baso % (Auto) Lymph # (Auto) [place] # (Auto) Eos # (Auto) Baso # (Aut
--- NOTE | 2022-09-19 16:05 | WPDUROPN2 ---
Progress Note: A&P Assessment and Plan (1) Kidney stone on right side: Code(s): N20.0 - Calculus of kidney Status: Acute Assessment and Plan: Ok to discharge home. Patient doing well s/p stone removal and stent placement. He will f/u next week for a stent removal. (2) Hematuria: Code(s): R31.9 - Hematuria, unspecified Status: Acute Assessment and Plan: Expected with stent in place, urine culture pending. Subjective Subjective Date/Time Seen: 09/19/22 16:05 POD#1 Cystoscopy, right ureteroscopy with stone extraction, right stent placement, right retrograde pyelogram. Patient doing well, sitting up in bed, tolerating pain, diet and activity. Post Op day: 1 Review of Systems Cardiovascular: Cardiovascular: Denies chest pain Respiratory: Respiratory: Reports no additional respiratory complaints Gastrointestinal: Gastrointestinal: Denies abdominal pain, Denies nausea and Denies vomiting Genitourinary: Genitourinary: Denies hematuria, Denies dysuria, Reports flank pain, Denies urinary frequency, Denies urinary incontinence and Denies urinary urgency Exam Resp: Effort & Inspection: normal respiratory effort Cardio: Rate: regular rate GI: GI Palp: Yes Soft to palpation and No Tenderness to palpation present (GI) : General: Yes no CVA tenderness Objective Data Vital Signs Vital Signs: Vital Signs - 24 hr 09/18/22 16:19 09/18/22 16:16 09/18/22 16:30 Temperature 97.9 F Pulse Rate 78 71 Respiratory Rate 10 L 12 Blood Pressure 134/86 137/97 H Pulse Oximetry 100 95 Oxygen Delivery Room Air Simple Face Mask Room Air Oxygen Flow Rate 6 09/18/22 16:45 09/18/22 17:00 09/18/22 17:58 Temperature Pulse Rate 73 70 68 Respiratory Rate 12 14 Blood Pressure 163/90 H 158/84 H Pulse Oximetry 99 100 Oxygen Delivery Room Air Room Air Oxygen Flow Rate 09/18/22 17:59 09/18/22 20:25 09/18/22 20:31 Temperature Pulse Rate 68 70 70 Respiratory Rate Blood Pressure Pulse Oximetry Oxygen Delivery Oxygen Flow Rate 09/18/22 21:33 09/18/22 20:00 09/19/22 05:50 Temperature 97.7 F 98.3 F Pulse Rate 75 69 Respiratory Rate 20 20 Blood Pressure 147/92 H 108/67 Pulse Oximetry 95 97 Oxygen Delivery Room Air Oxygen Flow Rate 09/19/22 08:27 09/19/22 08:29 09/19/22 08:56 Temperature Pulse Rate 75 75 74 Respiratory Rate 18 Blood Pressure Pulse Oximetry 93 Oxygen Delivery Room Air Oxygen Flow Rate 09/19/22 08:56 09/19/22 08:00 09/19/22 14:00 Temperature 97.9 F Pulse Rate 74 78 Respiratory Rate 16 Blood Pressure 120/66 Pulse Oximetry 96 Oxygen Delivery Room Air Oxygen Flow Rate Intake/Output Intake/Output: Intake & Output 09/16/22 09/17/22 09/18/22 09/19/22 23:59 23:59 23:59 23:59 Intake Total 2190 1450 Output Total 600 250 Balance 1590 1200 Meds/Results Medications: Active Medications Generic Name Dose Route Start Last Admin Trade Name Freq PRN Reason Stop Dose Admin Acetaminophen 1,000 mg 09/18/22 14:35 Acetaminophen 500 Mg Tablet PO Q6H PRN Mild Pain (1-3) Or Fever Hydrocodone Bitart/Acetaminophen 1 tab 09/18/22 14:35 09/19/22 08:54 Hydrocodone/Acetaminophen (*Crx) 5-325 Mg Tablet PO 1 tab Q6H PRN Administration PAIN RATED 4-6 Benzonatate 200 mg 09/18/22 14:43 09/19/22 08:55 Benzonatate 100 Mg Capsule PO 200 mg TID PRN Administration cough Diphenhydramine HCl 25 mg 09/18/22 14:35 Diphenhydramine Hcl Cap 25 Mg Capsule PO QHS PRN Allergy Symptoms Fentanyl Citrate 25 mcg 09/18/22 10:25 Fentanyl Citrate Inj (*Crx) 100 Mcg/2 Ml Vial IV PUSH Q2M PRN Pain Finasteride 5 mg 09/19/22 09:00 09/19/22 08:57 Finasteride 5 Mg Tablet PO 5 mg DAILY FAUSTO Administration Fluticasone Propionate 2 spray 09/19/22 09:00 09/19/22 08:57 Fluticasone Propionate 0.05% Na Spr 16 Gm B
== END 2022-09-19 16:30 | disposition home or self-care (01) ==
LOC: ANHED 09:09 → ANH3MEDSUR 09-19 04:44
PROVIDERS: Nurse Practitioner; Urology; Admitting Provider Student in an Organized Health Care Education/Training Program; Emergency Provider Emergency Medicine; PCP Family Medicine; Visit Provider Internal Medicine
PROC: (CPT 52352; principal; 2022-09-18 16:00)
DX: N20.1 Calculus of ureter (principal); I69.954 Hemiplegia and hemiparesis following unspecified cerebrovascular disease affecting left non-dominant side; I10 Essential (primary) hypertension; F32.9 Major depressive disorder, single episode, unspecified; Z86.718 Personal history of other venous thrombosis and embolism; I48.91 Unspecified atrial fibrillation; N40.1 Benign prostatic hyperplasia with lower urinary tract symptoms; E78.5 Hyperlipidemia, unspecified; G40.909 Epilepsy, unspecified, not intractable, without status epilepticus; R31.9 Hematuria, unspecified; D64.9 Anemia, unspecified; K21.9 Gastro-esophageal reflux disease without esophagitis; E78.79 Other disorders of bile acid and cholesterol metabolism; E78.6 Lipoprotein deficiency; F10.90 Alcohol use, unspecified, uncomplicated; G62.9 Polyneuropathy, unspecified; I48.0 Paroxysmal atrial fibrillation; R94.31 Abnormal electrocardiogram [ECG] [EKG]; K40.90 Unilateral inguinal hernia, without obstruction or gangrene, not specified as recurrent; Z87.440 Personal history of urinary (tract) infections; Z79.1 Long term (current) use of non-steroidal anti-inflammatories (NSAID); Z79.01 Long term (current) use of 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; Z79.51 Long term (current) use of inhaled steroids; Z79.891 Long term (current) use of opiate analgesic; Z79.899 Other long term (current) drug therapy; Z84.1 Family history of disorders of kidney and ureter; Z82.49 Family history of ischemic heart disease and other diseases of the circulatory system
CPT/HCPCS: 52352; 52332; 36415; 74176; 74420; 80053; 81001; 82365; 83605; 83690; 83735; 85025; 85610; 87086; 87088; 88300; 93005; 94640; 96361; 96365; 96375; 96376; 99285; A9270; C1769; C2617; G0378; J0131; J0690; J1100; J1170; J2370; J2405; J2704; J3010; J7030; J7120

== ENCOUNTER 2022-09-20 10:49 | Emergency (ER) | payer MEDICARE, SELFPAY ==
--- NOTE | ~2022-09-20 | CT_ITS ---
EXAMINATION: CT pelvis wo con DATE: 09/20/2022 13:49 INDICATION: Left hip pain. Inability to walk. TECHNIQUE: Computed tomography (CT) of the pelvis was performed without intravenous contrast. Automat ed exposure control and iterative reconstruction technique were employed. The dose-length product was 694.64 mGy-cm. COMPARISON: CT abdomen and pelvis 09/18/2022 FINDINGS: Partially visualized is a right internal ureteral stent in expected position. The prostate is mildly enlarged. There is a right inguinal hernia containing nonobstructed small bowel. There is a left inguinal hernia containing fat. Bone alignment is normal. No acute fracture. There is mild block cuber ben anterior wedging of L4 vertebral body. There is interbody fusion at L4-L5 and L5-S1. There is mod erate lumbar spondylosis. There is ankylosis of the sacroiliac joints. There is moderate osteoarthrit is of the hips. IMPRESSION: 1. No acute fracture. 2. Moderate osteoarthritis of the hips. 3. Right inguinal hernia containing nonobstructed small bowel. 4. Left inguinal hernia containing fat. Reviewed, dictated and finalized at location A.
--- NOTE | ~2022-09-20 | XR_ITS ---
EXAMINATION: XR hip LT 2V w AP pelvis DATE: 09/20/2022 12:41 INDICATION: Left hip pain. TECHNIQUE: An anteroposterior pelvis and 2 views of left hip were obtained. COMPARISON: CT abdomen and pelvis 09/18/2022 FINDINGS: Bone alignment is normal. No fracture. There is moderate osteoarthritis of the hips. There is severe lumbar spondylosis. There is a right internal ureteral stent in expected position. Surgical clips overlie right abdomen. IMPRESSION: 1. Moderate osteoarthritis of the hips. Reviewed, dictated and finalized at location A.
--- NOTE | ~2022-09-20 | CT_ITS ---
EXAMINATION: CT brain wo con DATE: 09/20/2022 12:34 INDICATION: Head injury. TECHNIQUE: Computed tomography (CT) of the head was performed without intravenous contrast. The mA wa s adjusted according to patient size. Iterative reconstruction technique was employed. The dose-lengt h product was 908.00 mGy-cm. COMPARISON: Head CT 05/10/2016 FINDINGS: There is chronic encephalomalacia involving right frontal, temporal, and parietal lobes, ri ght insula, and the right basal ganglia. There is an old right-sided craniotomy. There is no intracra nial hemorrhage, acute infarction, or abnormal intracranial mass lesion. There is ex vacuo dilatation of right lateral ventricle. The mastoid air cells are normal. There is mild mucosal thickening in th e ethmoid sinuses. The orbits are normal. IMPRESSION: 1. Chronic encephalomalacia involving right frontal, parietal, and temporal lobes, right insula, and the right basal ganglia. Reviewed, dictated and finalized at location A. IMPRESSION: 1. Chronic encephalomalacia involving right frontal, parietal, and temporal lob es, right insula, and the right basal ganglia.
[2022-09-20 11:43] VITALS: BP 113/97; PULSE 73; RESP 14; TEMP 36.2; O2SAT 99
[2022-09-20] MEDS: HYDROcodone/acetaminophen (*CRX) 5-325 MG TABLET 1 TAB PO (14:19)
--- NOTE | 2022-09-20 14:29 | PC.NURSE ---
attempted to ambulate patient in [place]. patient refused to even attempt repeating I cant put weight on my hip . patient offered walker and cane to assist ambulation but patient again refused to even attempt
--- NOTE | 2022-09-20 15:00 | ED.FALL ---
HPI - Fall General Chief Complaint: Fall Stated Complaint: fall, hit head, l hip pain Time Seen by Provider: 09/20/22 12:01 History of Present Illness HPI Narrative: Patient is a 72-year-old male who presents ER with left-sided hip pain. Patient reports yesterday he had a fall where he landed on the ground striking his left hip. Because pain very cannot get up on his own but also has some limited mobility due to previous stroke. Family got him up and put him in bed. Reports when he fell he did strike his head on a door on the way down but did not lose consciousness. Patient does take Coumadin. Patient would not ambulate today so they opted to bring him in for further evaluation. No numbness or tingling to lower extremity. No additional complaints. Related Data Home Medications Medication Instructions Recorded Confirmed warfarin 6 mg tablet (Coumadin) 5 mg PO 2XW 12/08/19 09/18/22 diphenhydramine HCl 25 mg tablet 25 mg PO QHS PRN Allergy Symptoms 04/03/22 09/18/22 (Benadryl Allergy) sotalol 120 mg tablet 120 mg PO Q12H 04/25/22 09/18/22 Allergies Allergy/AdvReac Type Severity Reaction Status Date / Time Penicillins Allergy Unknown Shock Verified 09/16/22 10:35 Review of Systems Review of Systems: All systems reviewed & are unremarkable except as noted in HPI and below Constitutional: Constitutional: Denies chills, Denies fatigue and Denies fever(s) ENT: Denies nasal congestion and Denies sore throat Cardiovascular: Cardiovascular: Denies chest pain and Denies rapid heart rate Respiratory: Respiratory: Denies cough and Denies dyspnea Gastrointestinal: Gastrointestinal: Denies abdominal pain, Denies nausea and Denies vomiting Musculoskeletal: Musculoskeletal: Reports arthralgias, Denies joint swelling and Denies muscle cramps PMFSH Past Medical History Medical History Anemia Depression DVT (deep venous thrombosis) Essential (primary) hypertension GERD (gastroesophageal reflux disease) Hemiplegia and hemiparesis following unspecified cerebrovascular disease affecting left non-dominant side Hepatitis C antibody test negative (10/25/20) 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 Major depressive disorder, single episode, unspecified 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 hyperlipidemia Peripheral neuropathy Personal history of other venous thrombosis and embolism Pyelonephritis Seizure Strain of lumbar region Unspecified atrial fibrillation Paroxysmal UTI (urinary tract infection) Surgical History Surgical History H/O craniotomy Status post hemorrhagic stroke H/O vasectomy History of cholecystectomy History of repair of anterior cruciate ligament of right knee S/P IVC filter Family History Family History Father Family history of cardiovascular disease Mother Family history of malignant neoplasm of breast in first degree relative Other Cerebrovascular accident Depression Family history of atrial fibrillation Family history of elevated blood lipids Family history of kidney disease Family history of malignant neoplasm of breast Hypertension Social History Social History Social History: The patient lives with his who is a [id number]. Patient desires to be a full code. He has 3 daughter. 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 Rarely drinks and is a lifelong nonsmoker. Smoking status: Never smoker Second hand tobacco smoke exposure: No Alcohol intake: current Drinks per week: 1 Substance use: never Substance use type: does not use Has the Lack of Transportation Kept You From Medical Appointments or From Getting Medications?: No Within the Past 12 Months, Were Yo
[2022-09-20 15:45] VITALS: BP 122/68; PULSE 68; RESP 18; O2SAT 99
== END 2022-09-20 15:46 | disposition home or self-care (01) ==
PROVIDERS: Emergency Provider Emergency Medicine; PCP Family Medicine
DX: M25.552 Pain in left hip (principal); I10 Essential (primary) hypertension; I48.91 Unspecified atrial fibrillation; E78.5 Hyperlipidemia, unspecified; Z86.718 Personal history of other venous thrombosis and embolism
CPT/HCPCS: 70450; 72192; 73502; 99284; A9270

== ENCOUNTER 2023-01-24 11:00 | Outpatient (RCR) | payer MEDICARE, SELFPAY ==
[2022-11-28 13:51] VITALS: BP_SYST 100
--- NOTE | 2022-11-28 15:05 | PTOPEVAL1 ---
Assessment and note entered by Romaine Linn, PT, DPT Evaluation Information Assessment Status Evaluation Diagnosis post stroke Subjective Information Pt states he had a stroke 12 years ago and has not really gotten back the function of his left arm. He states he can get around okay, just not long distances. He states he does not have good motion of his shoulder or good fine motor skills of his hand. Reported Pain Level Pain Score 3: Self Report Assessment PT Clinical Summary René presents to physical therapy today for an evaluation with a diagnosis of hemiplegia. Today he and his state that they are here to be evaluated for a shoulder immobilizer to prevent a possible shoulder dislocation. Upon evaluation, it was determined that he has fair motion and strength of his shoulder and placing him in a immobilizer may further increase his pain and stiffness d/t prolonged immobility. Pt and his are agreeable to continue without an immobilizer. Both the patient and his state that his function has not decreased over the last 12 years. He was educated on an updated HEP to encourage active assisted ROM though table slides and isometric shoulder motions to promote shoulder stability. He and his would not like to continue with regular treatments at this time. He will return in 1 month for a follow up and to progress his HEP if needed. Plan of Care Interventions Neuro Re-education,Patient/Caregiver Educati, Therapeutic Activities,Therapeutic Exercise PT Services Indicated Yes Treatment Frequency and follow up in 1 month Duration These treatments will address the objective and functional deficits as defined above. The patient will be advanced safely and appropriately in order for the patient to progress towards his/her prior level of function. Additional exercises will be introduced and as well as a comprehensive home exercise program upon discharge, if needed, ?to ensure carryover of functional gains achieved in the clinic. This treatment plan has been reviewed and agreement upon by the patient.
[2022-12-27 13:36] VITALS: BP_SYST 100
--- NOTE | 2022-12-27 14:24 | PTOPPROG ---
Assessment and note entered by Romaine Linn, PT, DPT Evaluation Information Assessment Status Progress Diagnosis post stroke Subjective Information Pt states his shoulder feels sore after he does his exercises. He states his pain has decreased some as well. Assessment PT Clinical Summary René presents to therapy for his progress report following a month long participation in his HEP. Today he demonstrates no improvement in his active shoulder motion however he does demonstrate some minor improvements in his shoulder strength. He also reports a decrease in his shoulder pain. Today his HEP was reviewed, corrections were given , and his HEP was progressed. He states he would like to follow up again in a month to ensure he is performing the exercises correctly. Plan of Care Interventions Neuro Re-education,Patient/Caregiver Educati, Therapeutic Activities,Therapeutic Exercise PT Services Indicated Yes Treatment Frequency and follow up in 1 month Duration These treatments will address the objective and functional deficits as defined above. The patient will be advanced safely and appropriately in order for the patient to progress towards his/her prior level of function. Additional exercises will be introduced and as well as a comprehensive home exercise program upon discharge, if needed, ?to ensure carryover of functional gains achieved in the clinic. This treatment plan has been reviewed and agreement upon by the patient.
[2023-01-24 11:03] VITALS: BP_SYST 100
--- NOTE | 2023-01-24 11:42 | PTOPDC ---
Assessment and note entered by Romaine Linn, PT, DPT Evaluation Information Assessment Status Discharge Diagnosis post stroke Subjective Information Pt states he is not doing the exercises at much as he should. Reported Pain Level Pain Score 0: Self Report Assessment PT Clinical Summary René presents to therapy today for his progress report following 2 visits of therapy to create and follow up on an HEP. Pt reports good understanding of his HEP with fair compliance. He continues to demonstrates decreased active shoulder ROM and strength d/t a prior stroke. He will be discharged at this time to continue his HEP. If he needs additional therapy services at a later date he will need a new order. Plan of Care PT Services Indicated No Treatment Frequency and discharge Duration
== END 2023-01-27 10:51 | disposition home or self-care (01) ==
LOC: ANHGOSHPT 11:00
PROVIDERS: PCP Family Medicine; Visit Provider Family Medicine
DX: I69.954 Hemiplegia and hemiparesis following unspecified cerebrovascular disease affecting left non-dominant side (principal)
CPT/HCPCS: 97110; 97112; 97161; 97530

== ENCOUNTER 2025-09-23 13:05 | Inpatient (IN) | payer MEDICARE, SELFPAY ==
--- OUTSIDE RECORDS SUMMARY | 2006-12-30 10:31 | XMS_ITS | Continuity of Care Document ---
Author Organization [facility] Address [address] [place] [address] [place] [address] Phone Care Team Providers Care Sap Administrator Name Role Phone Lozano OD, Douglas Unavailable Unavailable Procedures Procedure Date Office/outpatient Visit, Est Office/outpatient Visit, Est Office/outpatient Visit, Est Office/outpatient Visit, New Advance Directives Directive Yes / No Effective Date File Name No Information Encounters Encounter Description Practice Location Reason(s) For Visit Diagnoses Date Provider Providers Copied on Encounter Office/outpat ient Visit, [facility], [address] [place] [address] [address], [place], [place], [id number], tel:[phone] [facility] No Information 6-200 7 Lozano OD Douglas. [address] [facility] , [address], [place], [place], [facility], . tel:[phone] Office/outpat ient Visit, [facility], [address] [place] [address] [address], [place], [place], [id number], [place] tel:[phone] [facility] No Information 0-200 7 Lozano OD Douglas. [address] [facility] , [address], [place], [place], [facility], . tel:[phone] Office/outpat ient Visit, [facility], [address] [place] [address] [address], [place], [place], [id number], tel:[phone] [facility] No Information 5200 7 Lozano OD Douglas. [address], [address], [place], [address], [place]. tel:[phone] Office/outpat ient Visit, [facility], [address], [place], [place], [address], [place] tel:[phone] [facility] No Information 7 Wankwilbert Harman. [address], [place], [place], [id number], [place]. tel:[phone] Family History Family Member Type Diagnosis Age At Onset No Information Payers Payer name Insurance type Covered green party ID Authoriza tion(s) No Information Social History Type Description Quantity Date Captured Comments Sex Male Smoking Status No Information Chief Complaint And Reason For Visit No Information Reason For Referral Reason For Referral No Information History Of Present Illness Encounter Date Complaint History Of Prese nt Illness No Information Functional Status Date Functional Assessmen t No Information Instructions Date Instruction Additional Infor mation No Information Assessments Type Assessment Date No Information Patient Care Teams Name Effective Dates (start - stop) Status Members No Information
--- OUTSIDE RECORDS SUMMARY | 2006-12-30 10:31 | XMS_ITS | Continuity of Care Document ---
Author Organization [facility] Address [address] [place] [address] [place] [address] Phone Care Team Providers Care [employer] Coxswain Name Role Phone Lozano OD, Douglas Unavailable Unavailable Procedures Procedure Date Office/outpatient Visit, Est Office/outpatient Visit, Est Office/outpatient Visit, Est Office/outpatient Visit, New Advance Directives Directive Yes / No Effective Date File Name No Information Encounters Encounter Description Practice Location Reason(s) For Visit Diagnoses Date Provider Providers Copied on Encounter Office/outpat ient Visit, [facility], [address] [place] [address] [address], [place], [place], [id number], tel:[phone] [facility] No Information 6-200 7 Lozano OD Douglas. [address] [facility] , [address], [place], [place], [facility], . tel:[phone] Office/outpat ient Visit, [facility], [address] [place] [address] [address], [place], [place], [id number], [place] tel:[phone] [facility] No Information 0-200 7 Lozano OD Douglas. [address] [facility] , [address], [place], [place], [facility], . tel:[phone] Office/outpat ient Visit, [facility], [address] [place] [address] [address], [place], [place], [address], tel:[phone] [facility] No Information 5200 7 Lozano OD Douglas. [address], [address], [place], [address], [place]. tel:[phone] Office/outpat ient Visit, [facility], [address], [place], [place], [address], [place] tel:[phone] [facility] No Information 7 Wankwilbert Harman. [address] [facility], [place], [place], [address], [place]. tel:[phone] Family History Family Member Type Diagnosis Age At Onset No Information Payers Payer name Insurance type Covered alliance party ID Authoriza tion(s) No Information Social [...]
[2025-09-23] VITALS (10 sets, daily range): BP systolic 97–145; BP diastolic 60–94; PULSE 74–89; RESP 14–24; TEMP 36.3–36.6; O2SAT 98–100; BMI 25.9
--- NOTE | ~2025-09-23 | CT_ITS ---
CT HEAD NON-CONTRAST Clinical History: Fall and on Coumadin Comparison: CT brain 09/20/2022 Technique: Unenhanced axial images skull base to vertex Coronal, sagittal reformats CT images acquired with automatic exposure control for dose reduction DLP: 355 mGy-cm Findings: Large right frontal temporal craniotomy. Extensive right MCA distribution encephalomalacia as before. Age-related atrophy. Sulci, ventricles: Ex vacuo dilatation right lateral ventricle. No intracerebral hemorrhage. No evidence acute territorial infarct. No mass effect, midline shift. Visualized paranasal sinuses: Clear. Mastoid air cells: Clear. IMPRESSION: 1. No acute intracranial findings. Reviewed, dictated and finalized at location R.
--- NOTE | ~2025-09-23 | CT_ITS ---
EXAMINATION: CT shoulder LT wo con DATE: 09/23/2025 18:27 INDICATION: Proximal left humeral fracture TECHNIQUE: High resolution computed tomography (CT) of the left shoulder was performed without intravenous contrast. Additional sagittal and coronal reconstructions were performed. Automated exposure control and iterative reconstruction technique were employed. The dose-length product was 724.93 mGy-cm. COMPARISON: None FINDINGS: Comminuted fracture of the proximal left humerus which includes a posterior and impacted transverse fracture across the surgical neck with 40 degrees posterior angulation and couple millimeter posterior displacement along the anterior cortex. There is an additional minimally displaced sagittal oriented fracture extending across the posterior aspect of the greater tuberosity. The humeral head remains normally centered over the left glenoid with mild glenohumeral osteoarthritis. Normal alignment and mild osteoarthritis at the left acromioclavicular joint. Small glenohumeral hemarthrosis. No other fractures identified. Mild cervical and thoracic spondylosis. Mild emphysema at the left apex. Mild discoid atelectasis in the lingula along the major fissure and mild atelectasis with volume loss and bronchovascular crowding in the basilar left lower lobe. IMPRESSION: 1. Computed 1 part fracture of the proximal left humerus. Reviewed, dictated and finalized at location A.
--- NOTE | ~2025-09-23 | XR_ITS ---
EXAMINATION: XR shoulder LT min 2V, 09/23/2025 13:20 CDT HISTORY: fall, L. shoulder pain, FALL TODAY COMPARISON: No comparisons available. Findings: Impacted nondisplaced fracture of the humeral neck. Severe degenerative changes. Soft tissue swelling. Impression: Fracture detailed above Reviewed, dictated and finalized at location P. Impression: Fracture detailed above
--- NOTE | ~2025-09-23 | XR_ITS ---
EXAMINATION: XR chest 1V portable COMPARISON: No comparisons available. HISTORY: Syncopal Episode, HX OF STROKE TO LEFT SIDE FINDINGS: Small left lower lobe infiltrate. COPD changes. No pneumothorax. Heart is normal size. Mediastinal and hilar contours are within normal limits. Bony thorax no acute abnormality. Miscellaneous: None Impression: Early left lower lobe pneumonia Reviewed, dictated and finalized at location P. Impression: Early left lower lobe pneumonia
--- NOTE | ~2025-09-23 | XR_ITS ---
EXAMINATION: XR abdomen/kub 1V, 09/27/2025 14:00 HEAD USHER HISTORY: constipation X 1 WK COMPARISON: No comparisons available. Technique: 3 view. Findings: Moderate fecal content, no dilated bowel loops No free air. No abnormal calcifications No acute osseous abnormality. Impression: 1. No acute abnormality. Reviewed, dictated and finalized at location P. USHER Impression: 1. No acute abnormality.
--- OUTSIDE RECORDS SUMMARY | 2025-09-23 13:07 | XMS_ITS | Encounter Summary ---
Author Organization [facility] Healthcare Address [address] [place] [address] Care Team Providers Care Tax Auditor Name Role Phone Jose Jacome MD Primary Care Provider [phone] Encounter Details Date Type Department Care Team (Late st Contact Info) Description 08/24/2025 Telephone [facility] Medical Group Cardiology [address] [facility] [address] [place] [address] Jose Castro MD [address] [place] [address] Social History Tobacco Use Types Packs/Day Years Used Date Smoking Tobacco: Never Smokeless Tobacco: Never Alcohol Use Standard Drinks/Week Comments No 0 (1 standard drink = 0.6 oz pur e alcohol) Sex and Gender Information Value Date Recorded Sex Assigned at Not on file 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 While on hold, the patient hung up/ Please advise. Thank you. Contact : [phone] documented in this encounter Plan of Treatment Not on file documented as of this encounter Visit Diagnoses Not on filedocumented in this encounter Care Teams Tax Auditor Relationship Specialty Start Date End Date Jose Jacome MD PCP - General 02/21/17 documented as of this encounter
--- OUTSIDE RECORDS SUMMARY | 2025-09-23 13:07 | XMS_ITS | Clinical Summary ---
Author Organization [facility] [address] Address [address] [place] [address] Care Team Providers Care Crusher Assembler Name Role Phone Jose Jacome MD Primary Care Provider [phone] Allergies Active Allergy Reactions Criticality Noted Date Comments Penicillins Medications simvastatin (ZOCOR) 40 mg tablet take 1 tablet (40MG) by oral route every day in the evening 0 06/24/20 12 Active tamsulosin (FLOMAX) 0.4 mg capsule,extend ed release 24hr take 1 by Oral route every day 0 0 02/29/20 14 Active levETIRAcetam (KEPPRA) 250 mg tablet take 1 tablet by oral route 2 times every day 0 06/24/20 12 Active Additional Information Patient taking differently: 1,000 mg oral 2 times daily, Reported on 03/30/2025 diphenhydrAMIN E (BENADRYL) 25 mg capsule Take 1 tablet/capsule (25 mg total) by mouth every 6 (six) hours as needed for itching Active warfarin (COUMADIN) 1 mg tablet TAKE 1 TABLET BY MOUTH DAILY OR DIRECTED 30 tablet 11/03/20 20 Active Additional Information Patient not taking.Reported on 03/30/2025 omeprazole (PriLOSEC) 20 mg capsule Take 1 capsule (20 mg total) by mouth daily 06/07/20 22 Active loratadine (CLARITIN) 10 mg tablet Take 1 tablet (10 mg total) by mouth daily Active DULoxetine DR (CYMBALTA) 60 mg capsule Take 1 capsule (60 mg total) by mouth daily 03/07/20 25 Active irbesartan (AVAPRO) 75 mg tablet Take 1 tablet (75 mg total) by mouth every morning 02/25/20 25 Active dutasteride (AVODART) 0.5 mg capsule Take 1 capsule (0.5 mg total) by mouth daily 03/01/20 25 Active sotaloL (BETAPACE) 120 mg tablet TAKE 1 TABLET(120 MG) BY MOUTH TWICE DAILY 180 tablet 2 07/04/20 25 Active warfarin (COUMADIN) 5 mg tablet TAKE 1 TABLET(5 MG) BY MOUTH DAILY 30 tablet 08/29/20 25 Active warfarin (COUMADIN) 5 mg tablet TAKE 1 TABLET(5 MG) BY MOUTH DAILY 30 tablet 07/26/20 25 025 Discontinued Active Problems Problem Noted Date Diagnosed Date Atrial fibrillation (CMS/HCC) [I48.91] 7 Encounters Date Type Department Care Team Description 09/07/2025 Anticoagulation Visit [facility] Cardiology [address] [place] [address] [place] [phone] Aaliyah Morrison RN Atrial fibrillation ([facility]/HCC) [I48.91] (Primary Dx) 09/06/2025 Orders Only [facility] Health Information Management [address] [place] [id number] Jose Castro MD 08/24/2025 Telephone [facility] Cardiology [address] [place] [phone] Jose Castro MD 08/23/2025 Anticoagulation Visit [facility] Cardiology [address] [place] [address] [place] [phone] Aaliyah Morrison RN Atrial fibrillation ([facility]/HCC) [I48.91] (Primary Dx) 06/29/2025 Anticoagulation Visit [facility] Cardiology [facility] [phone] Sharon Pedro RN Atrial fibrillation (CMS/HCC) [I48.91] (Primary Dx) from Last 3 Months Surgical History Surgery Date Site/Laterality Comments KNEE SURGERY Knee surgery CHOLECYSTECTOMY Cholecystectomy Medical History Medical History Date Comments Cerebrovascular accident (CVA) (HCC) 2010 Stroke Family History Medical History Relation Name Comments Other Mother age Relation Name Status Comments Father Alive Mother (Age 89) Social History Tobacco Use Types Packs/Day Years Used Date Smoking Tobacco: Never Smokeless Tobacco: Never Tobacco Cessation:Counseling Given: Not Answered Alcohol Use Standard Drinks/Week Comments No 0 (1 standard drink = 0.6 oz pur e alcohol) Sex and Gender Information Value Date Recorded Sex Assigned at Not on file 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 Gender Identity Not on file Sexual Orientation Not on file Obstetrics History Last Filed Vital Signs Vital Sign Reading Time Taken Comments Blood Pressure 112/82 03/30/2025 2:05 PM CDT Pulse 65 03/30/2025 2:05 PM CDT Temperature - - Respiratory Rate 12 07/17/2017 3:03 PM CDT Oxygen Saturation 98% 03/30/2025 2:05 PM CDT Inhaled Oxygen Concentration - - Weight 96.6 kg (213 lb) 03/30/2025 2:05 PM CDT Height 193 cm (6' 4) 03/30/2025 2:05 PM CDT Body Mass Index 25.93 03/30/2025 2:05 PM CDT Plan of Treatment Health Maintenance Due Date Last Done Comments Colon Cancer Screening-Colonoscopy 1950 Depression Screening 1950 Fall Risk Assessment 1950 Hepatitis C Screening 1950 DTaP/Tdap/Td Vaccine (1 - Tdap) 1962 Hepatitis B Screening 1969 Zoster Vaccine (1 of 2) 2001 Well Visit 65+ 2016 Pneumococcal vaccine 65+ (2 of 2 - PCV) 08/12/2019 0 08/12/2018 Covid-19 Vaccine (2 - season) 07/25/202506/2021 Influenza Vaccine (#1) 2025 09/03/2019, 2017 Procedures Procedure Name Priority Date/Time Associated Diagnosis Comments PROTIME-INR Routine 09/06/2025 2:46 PM CDT Paroxysmal atrial fibrillation (HCC) SCAN - LABS 09/06/2025 PROTIME-INR Routine 08/22/2025 3:17 PM CDT Paroxysmal atrial fibrillation (HCC) PROTIME-INR Routine 06/28/2025 2:31 PM CDT Paroxysmal atrial fibrillation (HCC) from Last 3 Months Results * (ABNORMAL) Protime-INR (09/06/2025 2:46 PM CDT) INR 3.9(H) 0.9 - 1.2 [facility] - 01 Comment: Reference interval is for non-anticoagulated patients. Suggested INR therapeutic range for Vitamin K antagonist therapy: Standard Dose (moderate intensity therapeutic range): 2.0 - 3.0 Higher intensity therapeutic range 2.5 - 3.5 PT 38.4(H) 9.1 - 12.0 sec [facility] - 01 Blood 09/06/2025 2:46 PM CDT 09/06/2025 Narrative [facility] - 09/07/2025 8:12 AM CDT Performed at: [facility] [id number] Geothermal Field Technician: Glen Mccray PhD, Phone: [phone] us Jose Castro MD LAB BLOOD ORDERABLES Fin al Result [facility] * SCAN - LABS (09/06/2025) us Jose Castro MD Final Re sult * (ABNORMAL) Protime-INR (08/22/2025 3:17 PM CDT) INR 1.7(H) 0.9 - 1.2 [facility] - 01 Comment: Reference interval is for non-anticoagulated patients. Suggested INR therapeutic range for Vitamin K antagonist therapy: Standard Dose (moderate intensity therapeutic range): 2.0 - 3.0 Higher intensity therapeutic range 2.5 - 3.5 PT 17.6(H) 9.1 - 12.0 sec [facility] - 01 Blood 08/22/2025 3:17 PM CDT 08/22/2025 Narrative [facility] - 08/23/2025 8:11 AM CDT Performed at: [address] [place] [id number] Geothermal Field Technician: Glen Mccray PhD, Phone: [phone] Jose Castro MD LAB BLOOD ORDERABLES Fin al Result Performing Organization Address [facility] [[email or web address]] Co de Phone Number [facility] - * (ABNORMAL) Protime-INR (06/28/2025 2:31 PM CDT) [facility] INR 3.0(H) 0.9 - 1.2 [facility] - Comment: Reference interval is for non-anticoagulated patients. Suggested INR therapeutic range for Vitamin K antagonist therapy: Standard Dose (moderate intensity therapeutic range): 2.0 - 3.0 Higher intensity therapeutic range 2.5 - 3.5 PT 29.8(H) 9.1 - 12.0 sec [facility] - Blood 06/28/2025 2:31 PM CDT 06/28/2025 Narrative [facility] - 06/29/2025 8:12 AM CDT Performed at: [address] [place] [id number] Geothermal Field Technician: Glen Mccray PhD, Phone: [phone] Jose Castro MD LAB BLOOD ORDERABLES Fin al Result Performing Organization Address [facility] de Phone Number [facility] - from Last 3 Months Insurance [employer] MED[employer]ARE [facility] Address: [address] [place] [address] [employer] MED[employer]ARE Care Teams Crusher Assembler Relationship Specialty Start Date End Date Jose Jacome MD PCP - General 02/21/17
--- OUTSIDE RECORDS SUMMARY | 2025-09-23 13:07 | XMS_ITS | Clinical Summary ---
Author Organization [facility] Address [address] [place] [address] Care Team Providers Care Channel Partners Name Role Phone Unavailable Primary Care Provider Unavailabl e Immunizations Immunization Administration Dates Next Due Covid-19, Mrna, Lnp-s, Pf, 30 Mcg/0.3 Ml Dose (P fizer) 08/31/2021 Social History Tobacco Use Types Packs/Day Years Used Date Smoking Tobacco: Never Assessed Sex and Gender Information Value Date Recorded Sex Assigned at Not on file Legal Sex Male 5:08 PM CDT Gender Identity Not on file Sexual Orientation Not on file Plan of Treatment Health Maintenance Due Date Last Done Comments Hepatitis C Virus (HCV) Screening 1950 TdaP Immunization 1950 Cologuard 1996 Colonoscopy 1996 Colorectal Cancer Screening 1996 Immunochemical Fecal Occult Blood 1996 Zoster Immunization (1 of 2) 2001 Pneumococcal Immunization (5 0+ years) (2 of 2 - PCV) 08/12/2019 08/12/2018 Influenza Immunization (#1) 07/25/202507/26, 09/03/2019, 08/12/2018 SARS-COV-2 Immunization ( season) 2025 08/31/2021, 02/06/2021, 01/16/2021 Respiratory Syncytial Virus (RSV) Immunization (Adult) (1 - 1-dose 75+ series) 2026 Hepatitis B Immunization Aged Out No longer eligible based on patient's age to complete this topic Human Papillomavirus (HPV) Immunization Aged Out No longer eligible b ased on patient's age to complete this topic Meningococcal Immunization (ACWY) Aged Out No longer eligible b ased on patient's age to complete this topic Rotavirus Immunization Aged Out No lo nger eligible based on patient's age to complete this topic
--- NOTE | 2025-09-23 15:13 | PC.NURSE ---
Pt. alerted Nurys SARAVIA that pt. was feeling dizzy. Pt. brought to triage room. Pt. pale, but still alert. BP decreased from original BP. Pt. brought back to a room.
--- NOTE | 2025-09-23 15:19 | ECG_ITS ---
Test Date: 2025-09-23 15:22:06 Measurements Intervals [place] Rate: 74 P: 40 [place]: 156 QRS: -40 QRSD: 80 T: 69 QT: 396 QTc: 441 Interpretive Statements SINUS RHYTHM WITH OCCASIONAL SUPRAVENTRICULAR PREMATURE COMPLEXES LOW QRS VOLTAGE IN PRECORDIAL LEADS PATTERN CONSISTENT WITH PULMONARY DISEASE INFERIOR INFARCT, AGE INDETERMINATE BORDERLINE ST-T WAVE ABNORMALITY- ANTEROLAT/HIGH LAT LEADS BASELINE ARTIFACT- I, II, III, AVR, AVL, AVF, V6 ABNORMAL ECG No previous ECG available for comparison Electronically Signed On 09-23-2025 16:19:17 CDT by Lew Short D.O.
--- NOTE | 2025-09-23 15:20 | PC.NURSE ---
Patient taken back to room 13 and when patient transferred from wheelchair to bed had a syncopal episode. Standing orders placed at this time.
--- NOTE | 2025-09-23 15:25 | ED_ITS ---
HPI - Extremity Injury (Upper) General Chief Complaint: Extremity Injury, Upper Stated Complaint: Fall, Left Shoulder Pain Time Seen by Provider: 09/23/25 15:23 Source: patient Mode of arrival: ambulatory Limitations: no limitations History of Present Illness HPI narrative: Patient got up from sitting position lost balance slipped and fell landed on the left shoulder. Complaining of severe pain at the shoulder, he denies head injury or any other injuries. 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 Related Data Home Medications ?Medication ?Instructions ?Recorded ?Confirmed ?Last Taken ?Type sotalol 120 mg tablet 120 mg PO Q12H 04/25/2203/2409/17/22 21:00 History warfarin 5 mg tablet mg PO 11/26/24 04/06/25 Unkn own History Allergies Allergy/AdvReac Type Severity Reaction Status Date / Time Penicillins Allergy Unknown Shock Verified 08/30/25 14:21 Review of Systems 2 Review of Systems: All systems reviewed & are unremarkable except as noted in HPI and below PMFSH Past Medical History Medical History Renal stone Neck pain Hearing loss Dizziness Left hemiparesis Right-sided cerebrovascular accident (CVA) Hepatitis C antibody test negative (10/25/20) UTI (urinary tract infection) DVT prophylaxis Rectus sheath hematoma Anemia Sepsis associated hypotension Pneumonia Depression GERD (gastroesophageal reflux disease) DVT (deep venous thrombosis) Peripheral neuropathy Hemiplegia and hemiparesis following unspecified cerebrovascular disease affecting left non-dominant side Lipoprotein deficiency Pyelonephritis Essential (primary) hypertension 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 hyperlipidemia 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) use of 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 monitored by cardiology Major depressive disorder, single episode, unspecified Personal history of other venous thrombosis and embolism Strain of lumbar region Unspecified atrial fibrillation Paroxysmal Surgical History Surgical History History of repair of anterior cruciate ligament of right knee H/O vasectomy History of cholecystectomy S/P IVC filter H/O craniotomy Status post hemorrhagic stroke Family History Family History Father Family history of cardiovascular disease Mother Family history of malignant neoplasm of breast in first degree relative Other Cerebrovascular accident Depression Family history of atrial fibrillation Family history of elevated blood lipids Family history of kidney disease Family history of malignant neoplasm of breast Hypertension Social History Social History Social History: The patient lives with his who is a [id number]. Patient desires to be a full code. He has 3 daughter. 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 Rarely drinks and is a lifelong nonsmoker. Smoking status: Never smoker Second hand tobacco smoke exposure: No Alcohol intake: current Alcohol use details: rarely Substance use: never Substance use type: does not use Do You Feel Safe in your Home?: Yes Lack of Transportation: No Lack of Food: Never True Current Housing: I Do Not Have Housing Concerned About Future Housing: No Difficulty Paying Gas/Electric Bills: No Difficulty Paying for Meds: No Currently Unemployed: No Education: Master's Degree or Higher Difficulty w/ Childcare or Family Care: No Living arrangements: with family Occupation/Education: retired Gender identity (if verbalized by the patient): Male Spiritual care concerns: No Agree to blood products: Yes Exam 2 Narrative: General appearance: Well-developed, well-nourished Skin: Normal color Head: Normocephalic, nontraumatic Eyes: Clear conjunctiva ENT: Oropharynx normal, ears normal, nose normal Neck: Supple, nontender Chest and respiratory: Airway patent, no respiratory distress, no accessory muscle use Heart: Regular rate/rhythm Abdomen: Soft, nontender, no organomegaly, quiet bowel sounds Vascular: Normal peripheral pulses, normal capillary refill. 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 is normal as tested, no gross motor deficit Course Consultations Consultation #1: DR MIXON Date: 09/23/25 Time: 17:22 Vital Signs Vital signs: Vital Signs Temperature 36.3 C L 09/23/25 13:37 Pulse Rate 78 09/23/25 13:37 Respiratory Rate 14 09/23/25 13:37 Blood Pressure 145/94 H 09/23/25 13:37 Pulse Oximetry 100 09/23/25 13:37 Oxygen Delivery Room Air 09/23/25 13:37 Temperature 36.3 C L 09/23/25 13:37 Pulse Rate 78 09/23/25 16:46 Respiratory Rate 20 09/23/25 16:46 Blood Pressure 143/89 H 09/23/25 16:46 Pulse Oximetry 98 09/23/25 16:46 Oxygen Delivery Room Air 09/23/25 13:37 MDM - Extremity Injury (Upper) MDM Narrative Medical decision making narrative: Patient had a fall on left shoulder prior to arrival, denies other injuries On arrival to the ED patient was not able to stand up and was about to collapse to the floor Differential diagnosis include fracture left shoulder, electrolyte imbalance, vasovagal, hypotension, dehydration The patient and his reported that patient can not take care of himself at home and need to be at rehab or senior care X-ray of the left shoulder showed fracture proximal humerus Blood workup today includes CBC, CMP showed WBC 14.9 otherwise insignificant abnormality Chest x-ray showed possible early left lower lobe pneumonia, patient denies any fever or chills or coughing or trouble breathing Admit to hospitalist for rehab placement Differential Diagnosis Differential diagnosis: Likely other (As above) Medical Records Attestation: I reviewed the patient's medical records. Lab Data Attestation: I reviewed the patient's lab results. 09/23/25 15:49 09/23/25 15:49 Labs: Lab Results 09/23/25 Range/Units 15:49 WBC 14.9 H (4.5-10.0) K/mm3 RBC 5.23 (4.6-6.20) M/mm3 Hgb 15.3 (14.0-18.0) g/dL Hct 47.9 (42.0-52.0) % MCV 91.6 (80-100) fl MCH 29.3 (26-34) pg MCHC 31.9 L (32-36) g/dl RDW 15.0 H (11.5-14.5) % Plt Count 182 (150-375) k/mm3 MPV 9.6 (7.4-10.4) fl Immature Gran % (Auto) 0.4 (0-0.5) % Neut % (Auto) 81.2 H (45.5-73.1) % Lymph % (Auto) 12.9 L (18.3-44.2) % [place] % (Auto) 5.2 (2.6-8.5) % Eos % (Auto) 0.1 (0-4.4) % Baso % (Auto) 0.2 (0.2-1.2) % Lymph # (Auto) 1.91 (0.9-3.2) K/mm3 [place] # (Auto) 0.8 H (0.1-0.6) K/mm3 Eos # (Auto) 0.0 (0-0.3) K/mm3 Baso # (Auto) 0.0 (0.0-0.1) K/mm3 Abs Immat Gran (auto) 0.06 H (0.00-0.031) K/mm3 Absolute Neuts (auto) 12.1 H (1.3-6.7) K/mm3 Absolute Nucleated RBC 0.000 (0.0-0.012) K/mm3 Nucleated RBC % 0.0 (0.0-0.2) % PT 22.8 H (11.1-14.7) Seconds INR 2.1 Sodium 136 L (137-145) mmol/L Potassium 4.6 (3.4-5.0) mmol/L Chloride 106 (98-107) mmol/L Carbon Dioxide 26 (22-30) mmol/L Anion Gap 4 (4-12) mmol/L BUN 22 H (9-20) mg/dL Creatinine 1.23 (0.7-1.3) mg/dL Estim Creat Clear Calc 58 ml/min Estimated GFR 58 L (59 - ) Glucose 156 H (65-110) mg/dL Calcium 8.5 (8.4-10.2) mg/dL Total Bilirubin 1.3 (0.2-1.3) mg/dL AST 15 L (17-59) U/L ALT 10 (6-50) U/L Alkaline Phosphatase 102 (38-126) U/L Total Protein 6.2 L (6.3-8.2) g/dL Albumin 3.6 (3.5-5.1) g/dL Imaging Data Radiologist's impression: Impressions Shoulder X-Ray 09/23/25 13:31 Impression: Fracture detailed above Chest X-Ray 09/23/25 15:47 Impression: Early left lower lobe pneumonia Critical Care Time Critical Care Time Critical Care Time: No Discharge Plan Discharge Clinical Impression: Fracture of left shoulder, Unable to ambulate Clinical Impression: (Ruled Out): Neck pain Patient Disposition: Still a Patient Condition: Stable Additional Instructions: ADMIT TO HOSPITALIST Patient Language: Nauruan Prescriptions: No Action ipratropium bromide 21 mcg (0.03 %) spray,non-aerosol 2 spray intranasal .qd-tid Qty: 30 1RF Rx Instructions: administer into each nostril. Aim back/up/out sotalol 120 mg tablet 120 mg PO Q12H levetiracetam [Keppra] 1,000 mg tablet 1,000 mg PO Q12H Qty: 180 4RF warfarin 5 mg tablet PO simvastatin 40 mg tablet See Rx Instructions .ROUTE .COMPLEX Qty: 90 1RF Dose Instruction: TAKE 1 TABLET BY MOUTH DAILY Rx Instructions: TAKE 1 TABLET BY MOUTH DAILY tamsulosin [Flomax] 0.4 mg capsule 0.8 mg PO DAILY Qty: 180 1RF duloxetine 60 mg capsule,delayed release(DR/EC) 60 mg PO DAILY Qty: 90 1RF dutasteride [Avodart] 0.5 mg capsule 0.5 mg PO DAILY Qty: 90 1RF irbesartan 75 mg tablet See Rx Instructions .ROUTE .COMPLEX Qty: 90 1RF Dose Instruction: TAKE 1 TABLET BY MOUTH EVERY MORNING Rx Instructions: TAKE 1 TABLET BY MOUTH EVERY MORNING omeprazole 20 mg capsule,delayed release(DR/EC) See Rx Instructions .ROUTE .COMPLEX Qty: 90 1RF Dose Instruction: TAKE 1 CAPSULE BY MOUTH DAILY Rx Instructions: TAKE 1 CAPSULE BY MOUTH DAILY Follow-up/Referrals: Jose Jacome MD [Primary Care Provider, Family Practice]
[2025-09-23 15:57] LABS: Hematocrit 47.9 % (42.0-52.0); Hemoglobin 15.3 g/dL (14.0-18.0); Immature Granulocyte Percent A 0.4 % (0-0.5); Lymphocytes Absolute Auto 1.91 K/mm3 (0.9-3.2); Mean Corpuscular HGB Conc 31.9 g/dl (32-36); Mean Corpuscular Hemoglobin 29.3 pg (26-34); Mean Corpuscular Volume 91.6 fl (80-100); Nucleated Red Blood Cells Absolute Auto 0.000 K/mm3 (0.0-0.012); Nucleated Red Blood Cells Perc 0.0 % (0.0-0.2); Platelet Count Result 182 k/mm3 (150-375); Red Blood Count 5.23 M/mm3 (4.6-6.20); White Blood Count 14.9 K/mm3 (4.5-10.0)
[2025-09-23 16:06] LABS: Alanine Aminotransferase 10 U/L (6-50); Albumin Level 3.6 g/dL (3.5-5.1); Alkaline Phosphatase 102 U/L (38-126); Anion Gap 4 mmol/L (4-12); Aspartate Amino Transferase 15 U/L (17-59); Bilirubin,Total 1.3 mg/dL (0.2-1.3); Blood Urea Nitrogen 22 mg/dL (9-20); Calcium 8.5 mg/dL (8.4-10.2); Carbon Dioxide 26 mmol/L (22-30); Chloride 106 mmol/L (98-107); Estimated CRCL calculation 58 ml/min; Estimated Glomerular Filt Rate 58; Glucose 156 mg/dL (65-110); Potassium 4.6 mmol/L (3.4-5.0); Sodium 136 mmol/L (137-145); Total Protein 6.2 g/dL (6.3-8.2)
[2025-09-23 16:12] LABS: INR 2.1; Prothrombin Time 22.8 Seconds (11.1-14.7)
[2025-09-23] MEDS: SODIUM CHLORIDE 0.9% IV 1,000 ML 999 ML IV CONT (16:12)
[2025-09-23] MEDS: ONDANSETRON INJ 4 MG/2 ML VIAL IV PUSH ×2 (16:13→21:30)
[2025-09-23] MEDS: HYDROmorphone HCL INJ (*CRX) 1 MG/ML SYR 0.5 MG IV PUSH ×2 (16:13→21:31)
--- OUTSIDE RECORDS SUMMARY | 2025-09-23 16:17 | XMS_ITS | Clinical Summary ---
Author Organization [facility] Address [address] [place] [address] Care Team Providers Care Mail Handlers Supervisor Name Role Phone Jose Jacome MD Primary Care Provider [phone] Source Comments [facility],non-owned Affiliates and Associated Physician Practices is amultiple site organization consisting of ambulatory clinics and hospital sitesin [place], [place], [place] and [place]. This disclosure is being madepursuant to the Care Everywhere program and may not contain all information available regarding this patient. 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 Gender Identity Not on file Sexual Orientation Not on file Plan of Treatment Health Maintenance Due Date Last Done Comments COLOGUARD (AGES 45-75) - COL ON CA SCREENING 1951 COLON MONITORING 1951 COLONOSCOPY - COLON CA SCREENING 1951 CT COLONOGRAPHY - COLON CA SCREENING 1950 Colorectal Cancer Screening 1950 FIT - COLON CA SCREENING 1951 FLEX SIG - COLON CA SCREENING 1951 LIPID TESTING 1950 HEPATITIS C SCREENING 07/27/1969 DTAP/TDAP/TD VACCINES (1 - Tdap) 1970 PNEUMOCOCCAL VACCINE 50+ (1 of 1 - PCV) 2001 ZOSTER VACCINE (1 of 2) 2001 DEPRESSION SCREENING 11/24/2024 COVID-19 VACCINE (1 - 2023-2 5 season) 2025 INFLUENZA VACCINE (#1) 2025 Respiratory Syncytial Virus (RSV) Vaccine Pt: or over 60 yrs (1 - 1-dose 75+ series) 2026 HEPATITIS B VACCINE Aged Out No longe r eligible based on patient's age to complete this topic HIB VACCINE Aged Out No longer eligi ble based on patient's age to complete this topic HPV VACCINE Aged Out No longer eligi ble based on patient's age to complete this topic MENINGOCOCCAL (Group B) VACC INE SHARED DECISION-MAKING Aged Out No longer eligibl e based on patient's age to complete this topic MENINGOCOCCAL GROUPS A/C/Y/W VACCINE Aged Out No longer eligible b ased on patient's age to complete this topic Additional Health Concerns Infection Onset Date Last Indicated MRSA Comment:urine 08/13/2010 08/13/2010 Insurance [facility] [place] [address] Advance Directives * Full Code (Latest Code Status on File) Date Activated Date Inactivated Comments 08/15/2010 5:25 PM 09/08/2010 1:16 AM Care Teams Mail Handlers Supervisor Relationship Specialty Start Date End Date Jose Jacome MD [address] [place] [address] PCP - General 10/02/22
--- OUTSIDE RECORDS SUMMARY | 2025-09-23 16:17 | XMS_ITS | Encounter Summary ---
Author Organization [facility] Healthcare Address [address] [place] [address] Care Team Providers Care Pharmaceutical Process Engineer Name Role Phone Jose Jacome MD Primary Care Provider [phone] Encounter Details Date Type Department Care Team (Late st Contact Info) Description 08/24/2025 Telephone [facility] Medical Group Cardiology [address] [facility] [address] [place] [address] Jose Castro MD [address] [place] [address] Social History Tobacco Use Types Packs/Day Years Used Date Smoking Tobacco: Never Smokeless Tobacco: Never Alcohol Use Standard Drinks/Week Comments No 0 (1 standard drink = 0.6 oz pur e alcohol) Sex and Gender Information Value Date Recorded Sex Assigned at Not on file 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 While on hold, the patient hung up/ Please advise. Thank you. Contact : [phone] documented in this encounter Plan of Treatment Not on file documented as of this encounter Visit Diagnoses Not on filedocumented in this encounter Care Teams Pharmaceutical Process Engineer Relationship Specialty Start Date End Date Jose Jacome MD PCP - General 02/21/17 documented as of this encounter
--- OUTSIDE RECORDS SUMMARY | 2025-09-23 16:17 | XMS_ITS | Clinical Summary ---
Author Organization [facility] Address [address] [place] [address] Care Team Providers Care Belt Loop Cutter Name Role Phone Unavailable Primary Care Provider [...]
--- OUTSIDE RECORDS SUMMARY | 2025-09-23 16:17 | XMS_ITS | Clinical Summary ---
Author Organization [facility] [address] Address [address] [place] [address] Care Team Providers Care History Tutor Name Role Phone Jose Jacome MD Primary Care Provider [phone] Allergies Active Allergy Reactions Criticality Noted Date [...] Department Care Team Description 09/07/2025 Anticoagulation Visit [facility] Cardiology [address] [place] [address] [place] [phone] Aaliyah Morrison RN Atrial fibrillation ([facility]/HCC) [I48.91] (Primary Dx) 09/06/2025 Orders Only [facility] Health Information Management [address] [place] [address] Jose Castro MD 08/24/2025 Telephone [facility] Cardiology [address] [place] [phone] Jose Castro MD 08/23/2025 Anticoagulation Visit [facility] Cardiology [address] [place] [address] [place] [phone] Aaliyah Morrison RN Atrial fibrillation ([facility]/HCC) [I48.91] (Primary Dx) 06/29/2025 Anticoagulation Visit [facility] Cardiology [facility] [address] [phone] Sharon Pedro RN Atrial fibrillation (CMS/HCC) [I48.91] [...] on file 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 Gender Identity Not on file Sexual Orientation [...] - 09/07/2025 8:12 AM CDT Performed at: [facility] [id number] Small Parts Assembler: Glen Mccray PhD, Phone: [phone] us Jose Castro MD LAB BLOOD ORDERABLES Fin al Result [facility] - 01 * SCAN - LABS (09/06/2025) [...] - 08/23/2025 8:11 AM CDT Performed at: [address] [place] [id number] Small Parts Assembler: Glen Mccray PhD, Phone: [phone] Jose Castro MD LAB BLOOD ORDERABLES Fin al Result Performing Organization Address [facility] Co de Phone Number [facility] - * (ABNORMAL) Protime-INR (06/28/2025 2:31 PM CDT) [facility] INR 3.0(H) 0.9 - 1.2 [facility] - Comment: Reference interval is for non-anticoagulated patients. Suggested INR therapeutic range for Vitamin K antagonist therapy: Standard Dose (moderate intensity therapeutic range): 2.0 - 3.0 Higher intensity therapeutic range 2.5 - 3.5 PT 29.8(H) 9.1 - 12.0 sec [facility] - Blood 06/28/2025 2:31 PM CDT 06/28/2025 Narrative [facility] - 06/29/2025 8:12 AM CDT Performed at: [address] [place] [id number] Small Parts Assembler: Glen Mccray PhD, Phone: [phone] Jose Castro MD LAB BLOOD ORDERABLES Fin al Result Performing Organization Address [facility] de Phone Number [facility] - from Last 3 Months Insurance [employer] [facility] Address: [address] [place] [address] [employer] Care Teams History Tutor Relationship Specialty Start Date End Date Jose Jacome MD PCP - General 02/21/17
--- NOTE | 2025-09-23 19:00 | ADMGEN ---
This patient, René Bowman, was admitted to 2 Medical Room 255-01. Patient/family oriented to hospital policies and general routines including ID bracelet, bed and alarms, visiting hours, pain management, procedures, bathroom and other care routines, personal items, smoking policy, room service/diet, and visiting hours. Information on how to activate the Rapid Response Team has been discussed. Patient/Family are encouraged to report perceived risks to care and to ask questions if they do not understand what they are told or what they should do.
[2025-09-23] MEDS: SODIUM CHLORIDE 0.9% IV 1,000 ML 100 ML IV CONT (21:30)
--- NOTE | 2025-09-23 22:52 | P.HP_ITS ---
H&P: HPI History of Present Illness Date/Time: 09/23/25 22:52 Chief Complaint: Left arm injury Narrative: This is a 75-year-old male patient with a past history a hemorrhagic stroke in 2011 with chronic left hemiplegia. According to his Debbie, the patient was bending down on the floor trying to plug something into the wall. He stated that he was down on 1 knee and stood up and lost his balance. He stated that he fell on his left side. He stated that he was in severe pain to the left arm. He denies hitting his head and he has chronic use of Coumadin. According to his Debbie, he is mentally at his baseline. The left hemiplegia is reportedly from his previous stroke. CT of left shoulder computed 1 part fracture of the proximal left humerus. Chest x-ray was read as early left lower lobe pneumonia. Shoulder x-ray was read as impacted nondisplaced fracture of the humeral neck. Severe degenerative changes. Soft tissue swelling. The patient was placed in a sling to the left arm and ortho has been consulted. The patient was given Dilaudid in the emergency room as well as IV fluids. His white count was noted to be 14.9. Sodium was slightly low at 136. Blood sugar 156.He is being admitted to observation on the dos 09/23/2025. Review of Systems Constitutional: Constitutional: Reports as per HPI and Reports no additional constitutional complaints Eyes: Eyes: Reports as per HPI and Reports no additional eye complaints ENT: Reports system reviewed and no additional complaints, except as documented and Reports Normal hearing present Cardiovascular: Cardiovascular: Reports no additional cardiovascular complaints Respiratory: Respiratory: Reports as per HPI and Reports no additional respiratory complaints Gastrointestinal: Gastrointestinal: Reports as per HPI and Reports no additional gastrointestinal complaints Musculoskeletal: Musculoskeletal: Reports no additional musculoskeletal complaints Integumentary/Breasts: Skin/Breast: Reports system reviewed and no additional complaints, except as docu Neurologic: Reports system reviewed and no additional complaints, except as documented and Reports Normal hearing present Psychiatric: Psychiatric: Reports no additional psychiatric complaints and Reports as per HPI Hematologic/Lymphatic: Hematologic/Lymphatic: Reports no additional hematologic/lymphatic complaints Allergic/Immunologic: Allergic/Immunologic: Reports no additional allergic/immunologic complaints PMFSH Past Medical History Medical History (Updated 09/24/25 @ 10:57 by Mitchell Lawson MD) BPH loc w urin obs/LUTS Renal stone Neck pain Hearing loss Dizziness Left hemiparesis Right-sided cerebrovascular accident (CVA) Hepatitis C antibody test negative (10/25/20) UTI (urinary tract infection) DVT prophylaxis Rectus sheath hematoma Anemia Sepsis associated hypotension Pneumonia Depression GERD (gastroesophageal reflux disease) DVT (deep venous thrombosis) Peripheral neuropathy Hemiplegia and hemiparesis following unspecified cerebrovascular disease affecting left non-dominant side Lipoprotein deficiency Pyelonephritis Essential (primary) hypertension 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 monitored by cardiology Major depressive disorder, single episode, unspecified Personal history of other venous thrombosis and embolism Strain of lumbar region Unspecified atrial fibrillation Paroxysmal Surgical History Surgical History History of repair of anterior cruciate ligament of right knee H/O vasectomy History of cholecystectomy S/P IVC filter H/O craniotomy Status post hemorrhagic stroke Family History Family History Father Family history of cardiovascular disease Mother Family history of malignant neoplasm of breast in first degree relative Other Cerebrovascular accident Depression Family history of atrial fibrillation Family history of elevated blood lipids Family history of kidney disease Family history of malignant neoplasm of breast Hypertension Social History Social History (Updated 09/23/25 @ 23:04 by Deena Haynes APRN) Social History: The patient lives with his Debbie who is a [id number]. Patient desires to be a full code. He has 3 daughter. 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 Rarely drinks and is a lifelong nonsmoker. Smoking status: Never smoker Second hand tobacco smoke exposure: No Alcohol intake: never Alcohol use details: rarely Substance use: never Substance use type: does not use Do You Feel Safe in your Home?: Yes Lack of Transportation: No Lack of Food: Never True Current Housing: I Have Housing Concerned About Future Housing: No Difficulty Paying Gas/Electric Bills: No Difficulty Paying for Meds: No Currently Unemployed: No Education: Master's Degree or Higher Difficulty w/ Childcare or Family Care: No Living arrangements: with family Occupation/Education: retired Gender identity (if verbalized by the patient): Male Spiritual care concerns: No Agree to blood products: Yes Meds Home Medications and Allergies Home Medications ?Medication ?Instructions ?Recorded ?Confirmed ?Type sotalol 120 mg tablet 120 mg PO Q12H 04/25/2208/26 History warfarin 5 mg tablet 5 mg PO QHS 11/26/24 5 History duloxetine 60 mg capsule,delayed 60 mg PO DAILY #90 ca ps 06/06/25 09/23/25 Rx release irbesartan 75 mg tablet See Rx Instructions .Route 0 08/22/25 09/23/25 Rx .COMPLEX #90 tabs omeprazole 20 mg capsule,delayed See Rx Instructions . Route 08/29/25 09/23/25 Rx release .COMPLEX #90 caps dutasteride 0.5 mg capsule 0.5 mg PO QHS 09/23/2508/26 History (Avodart) ipratropium bromide 21 mcg (0.03 2 spray intranasal BI D 09/23/25 09/23/25 History %) nasal spray levetiracetam 1,000 mg tablet 500 mg PO Q12H 09/23/25 09/23/25 History (Keppra) psyllium husk 0.4 gram capsule 0.4 g PO BID 09/23/25 1 History (Metamucil) tamsulosin 0.4 mg capsule (Flomax) 0.4 mg PO QHS 09/2309/23/25 History warfarin 2.5 mg tablet 2.5 mg PO 2XW 09/23/2509/23 History Allergies Allergy/AdvReac Type Severity Reaction Status Date / Time Penicillins Allergy Unknown Shock Verified 09/23/25 21:56 Vital Signs Vital Signs - 24 hr 09/23/25 13:37 09/23/25 15:13 09/23/25 15:18 Temperature 97.4 F L Pulse Rate 78 89 79 Respiratory Rate 14 16 19 Blood Pressure 145/94 H 97/60 L 115/89 Pulse Oximetry 100 98 98 Oxygen Delivery Room Air 09/23/25 15:19 09/23/25 15:31 09/23/25 16:01 Temperature Pulse Rate 77 77 74 Respiratory Rate 24 H 20 18 Blood Pressure 115/89 111/82 127/90 Pulse Oximetry 99 100 100 Oxygen Delivery 09/23/25 16:30 09/23/25 16:46 09/23/25 19:56 Temperature 97.9 F Pulse Rate 75 78 79 Respiratory Rate 19 20 16 Blood Pressure 136/92 H 143/89 H 139/91 H Pulse Oximetry 98 98 99 Oxygen Delivery 09/23/25 20:00 Temperature Pulse Rate 79 Respiratory Rate 16 Blood Pressure Pulse Oximetry 99 Oxygen Delivery Room Air Exam Const: General: cooperative, healthy appearing, comfortable, no acute distress, well developed, awake, Physically active, average body habitus and well nourished Nutritional Appearance: average body habitus and well nourished Orientation/consciousness: oriented to person, oriented to place, oriented to time and patient oriented x3 Limitations: no limitations HENMT: Head: normal to inspection, No palpable skull fracture present, normocephalic, atraumatic and abrasion Ears: hearing grossly normal bilaterally Face/Nose/Sinus: Normal external nose present Eyes: General: appearance normal, both eyes and all related structures Alignment and Position: alignment normal Pupils: Equal, round and reactive pupils present and Pupil accommodation reflex normal EOM: EOMs intact bilaterally Neck: Neck: normal visual inspection, full ROM, no lymphadenopathy, trachea midline and supple Chest: Chest palpation & inspection: normal inspection of the chest Resp: Effort & Inspection: normal respiratory effort Auscultation: clear to auscultation bilaterally Cardio: Palpation: normal PMI Rate: regular rate Rhythm: regular rhythm Heart sounds: S1 normal heart sound present and S2 normal heart sound present Peripheral pulses: Peripheral pulses 2+ throughout GI: Inspection: normal to inspection Percussion: Yes normal to percussion Auscultation: normal bowel sounds Rectal Exam: deferred Back/Spine/Pelvis: Other: Limited cervical movement Skin: General skin exam: normal color Lesions: no lesions Rashes: no rashes Trauma: no lacerations or abrasions Wounds: no wounds Hair: normal Nails: normal Other: Large amount of left upper arm purple bruising noted. Neuro: General: oriented to person, oriented to place, oriented to time and patient oriented x3 Cranial nerves: Yes Equal, round and reactive pupils present and Yes Normal hearing present Cognition (Neuro): normal cognition Speech: normal speech Other: Hemiparesis noted to the left upper arm and left lower leg. Limited motion to left arm and left lower extremity. He is able to wiggle his fingers and toes. Extrem: General: normal to inspection Right upper extremity: normal to inspection and shoulder/upper arm Left upper extremity: shoulder/upper arm Right lower extremity: normal to inspection Other: Left upper and lower extremity hemiparesis Psych: Appearance: grossly normal Mental Status: mental status grossly normal Speech and movement: Normal speech and movement present Affect: n ormal affect Attitude: cooperative Thought process: Normal thought process present Thought content: Yes Normal thought content present Insight: Good insight present (Psych) and Limited insight present (Psych) Judgement: Limited judgement present (Psych) H&P: Results Labs Labs: Short CBC 09/23/25 Range/Units 15:49 WBC 14.9 H (4.5-10.0) K/mm3 Hgb 15.3 (14.0-18.0) g/dL Hct 47.9 (42.0-52.0) % Plt Count 182 (150-375) k/mm3 BMP 09/23/25 15:49 Sodium 136 L Potassium 4.6 Chloride 106 Carbon Dioxide 26 BUN 22 H Creatinine 1.23 Glucose 156 H Calcium 8.5 Liver Function 09/23/25 Range/Units 15:49 Total Bilirubin 1.3 (0.2-1.3) mg/dL AST 15 L (17-59) U/L ALT 10 (6-50) U/L Alkaline Phosphatase 102 (38-126) U/L Albumin 3.6 (3.5-5.1) g/dL ECG Interpretation: Test Date: 2025-09-23 15:22:06 Measurements Intervals Ald[place] Rate: 74 P: 40 FL: 156 QRS: -40 QRSD: 80 T: 69 QT: 396 QTc: 441 Interpretive Statements SINUS RHYTHM WITH OCCASIONAL SUPRAVENTRICULAR PREMATURE COMPLEXES LOW QRS VOLTAGE IN PRECORDIAL LEADS PATTERN CONSISTENT WITH PULMONARY DISEASE INFERIOR INFARCT, AGE INDETERMINATE BORDERLINE ST-T WAVE ABNORMALITY- ANTEROLAT/HIGH LAT LEADS BASELINE ARTIFACT- I, II, III, AVR, AVL, AVF, V6 ABNORMAL ECG No previous ECG available for comparison Electronically Signed On 09-23-2025 16:19:17 CDT by Lew Short D.O Imaging Chest x-ray: Radiologist's impression: Impressions Shoulder X-Ray 09/23/25 13:31 Impression: Fracture detailed above Chest X-Ray 09/23/25 15:47 Impression: Early left lower lobe pneumonia Shoulder CT 09/23/25 19:01 IMPRESSION: 1. Computed 1 part fracture of the proximal left humerus. Assessment and Plan Assessment and plan (1) Closed left humeral fracture: Code(s): S42.302A - Unspecified fracture of shaft of humerus, left arm, initial encounter for closed fracture Status: Acute Assessment and Plan: -the left arm has been placed in a sling. The patient has significant bruising to the left arm. - He continues to complain of severe discomfort. -continue with [facility] for lesser pain -transition of care specialist consultation for rehab. The patient and discussed this and decided upon [facility]. -PTOT evaluation greatly be appreciated. The patient typically ambulates with a cane. -Shoulder CT 09/23/25 19:01 IMPRESSION: 1. Computed 1 part fracture of the proximal left humerus. -virtual reality specialist has been consulted. Evaluation and treatment options with greatly be appreciated. (2) Unspecified atrial fibrillation: Qualifiers: Atrial fibrillation type: paroxysmal Qualified Code(s): I48.0 - Paroxysmal atrial fibrillation Code(s): I48.91 - Unspecified atrial fibrillation Status: Chronic Assessment and Plan: -the EKG is read as normal sinus rhythm. -continue with daily Coumadin with a projected therapeutic INR of 2.0-3.0. -daily PT INR -current INR is 2.0 PTT is 22.8. 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 -the patient is therapeutic therefore I continue with his home dose of Coumadin. Coumadin not held at this point. If the patient is a candidate for surgical procedure than we would hold it. (5) BPH loc w urin obs/LUTS: Code(s): N40.1 - Benign prostatic hyperplasia with lower urinary tract symptoms Status: Acute Assessment and Plan: -continue with Avodart and Flomax (6) Right-sided cerebrovascular accident (CVA): Code(s): I63.9 - Cerebral infarction, unspecified Status: Acute Assessment and Plan: -the patient uses a cane to walk. He has left side effect. The patient has a history of having a hemorrhagic stroke with a craniotomy in 2010. (7) Seizure disorder: Code(s): G40.909 - Epilepsy, unspecified, not intractable, without status epilepticus Status: Acute Assessment and Plan: -continue with Keppra and check Keppra levels. Plan His chest x-ray was read as possible early pneumonia. However the patient is afebrile denies any fever chills or cough. Please continue to monitor and treat accordingly. Quality VTE Prophylaxis VTE prophylaxis: pharmacologic ordered
[2025-09-24] VITALS (15 sets, daily range): BP systolic 91–135; BP diastolic 55–84; PULSE 68–82; RESP 16–18; TEMP 36.2–36.7; O2SAT 93–100
[2025-09-24] MEDS: TAMSULOSIN HCL 0.4 MG CAPSULE PO ×2 (00:04→22:50)
[2025-09-24] MEDS: IRBESARTAN 75 MG TABLET BY MOUTH ×2 (00:05→08:52)
[2025-09-24] MEDS: SOTALOL HCL 80 MG TABLET PO ×3 (00:06→22:54)
[2025-09-24] MEDS: HYDROcodone/acetaminophen (*CRX) 5-325 MG TABLET 1 TAB PO ×4 (00:47→19:56)
[2025-09-24 05:32] LABS: Hematocrit 39.4 % (42.0-52.0); Hemoglobin 12.6 g/dL (14.0-18.0); Mean Corpuscular HGB Conc 32.0 g/dl (32-36); Mean Corpuscular Hemoglobin 29.6 pg (26-34); Mean Corpuscular Volume 92.5 fl (80-100); Platelet Count Result 139 k/mm3 (150-375); Red Blood Count 4.26 M/mm3 (4.6-6.20); White Blood Count 10.3 K/mm3 (4.5-10.0)
[2025-09-24 05:40] LABS: INR 2.3; Prothrombin Time 24.2 Seconds (11.1-14.7)
[2025-09-24 05:46] LABS: Anion Gap 1 mmol/L (4-12); Blood Urea Nitrogen 23 mg/dL (9-20); Calcium 7.6 mg/dL (8.4-10.2); Carbon Dioxide 24 mmol/L (22-30); Chloride 110 mmol/L (98-107); Estimated CRCL calculation 61 ml/min; Estimated Glomerular Filt Rate > 60; Glucose 108 mg/dL (65-110); Potassium 4.7 mmol/L (3.4-5.0); Sodium 135 mmol/L (137-145)
--- NOTE | 2025-09-24 06:41 | P.PNIM_ITS ---
Progress Note: A&P Assessment and Plan (1) Fall: Code(s): W19.XXXA - Unspecified fall, initial encounter Status: Acute Assessment and Plan: Mechanical ground level fall after tripping over his foot onto his left side, denies LOC or head strike. Denies dizziness or lightheadedness prior to fall. On chronic anticoagulation. - Chest XR: Early left lower lobe pneumonia Afebrile with downtrending WBC despite no antibiotic intervention and asymptomatic, leukocytosis likely reactive to acute fracture. - Shoulder XR: Impacted nondisplaced fracture of the humeral neck. - Shoulder CT: Comminuted fracture of the proximal left humerus - Head CT: no acute intracranial findings - See plan below (2) Closed left humeral fracture: Code(s): S42.302A - Unspecified fracture of shaft of humerus, left arm, initial encounter for closed fracture Status: Acute Assessment and Plan: Shoulder XR: Impacted nondisplaced fracture of the humeral neck. Shoulder CT: Comminuted fracture of the proximal left humerus - SCDs/TEDs, warfarin - analgesic: tylenol 650 mg q4prn, norco 5-325 mg q4prn, and dilaudid 0.5 mg IV q4prn - bowel regimen - PT/OT ordered, follow weight restrictions per ortho recommendations - Ortho consulted, appreciate recommendations Given the fact that the patient has a significant history for left upper and lower weakness residual from hemorrhagic stroke, and limited ADL, I would recommend conservative treatment of his Left prox hum fracture. Use the Left Upper extremity as he tolerates (ie for balance and ambulation and for transfers) Recommend rehab evaluation, recommend walker with left arm platform while at rehab Follow up with my office 1 week from time of discharge. (3) Essential (primary) hypertension: Code(s): I10 - Essential (primary) hypertension Status: Acute Assessment and Plan: Chronic, continue home medications - irbesartan 75 mg daily - blood pressures reviewed and stable, continue to monitor (4) Unspecified atrial fibrillation: Qualifiers: Atrial fibrillation type: paroxysmal Qualified Code(s): I48.0 - Paroxysmal atrial fibrillation Code(s): I48.91 - Unspecified atrial fibrillation Status: Chronic Assessment and Plan: Chronic Continue warfarin as previously prescribed, INR currently therapeutic Continue sotalol 120 mg BID (5) 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 (6) Seizure disorder: Code(s): G40.909 - Epilepsy, unspecified, not intractable, without status epilepticus Status: Acute Assessment and Plan: Continue keppra 500 mg BID Time Spent With Patient Time with patient: 25 - 35 minutes Subjective Date/time seen: 09/24/25 06:41 Interval history: 75 year old male with past medical history of stroke with left sided deficits, dvt on chronic anticoagulation, seizure, htn, hld, paroxysmal afib, and mdd presents to the hospital following a ground level mechanical fall onto his left side. Patient is pleasant sitting up comfortably in bed. He states that his left sided weakness is at baseline. He continues to endorse pain to the left arm and lower back. He notes that the lower back pain is chronic and not worse from baseline. He denies any tingling or numbness to the lower extremities. He has no other complaints denying chest pain, palpitations, shortness of breath, nausea/vomiting, and abdominal pain. Review of Systems Review of Systems: All systems reviewed & are unremarkable except as noted in HPI and below Exam Narrative: AF HR 73 RR 16 Spo2 97 BP 100/60 General: male in no acute respiratory distress who is nontoxic appearing, sitting up in bed. HEENT: Normocephalic. Atraumatic. Extraocular movement intact. Sclera clear and anicteric.No facial asymmetry. Chest: Lungs are clear to auscultation bilaterally. CV: Heart was regular rate and rhythm. Abd: Abdomen was soft. Nontender. Nondistended. Positive bowel sounds. Ext: No clubbing, cyanosis, or edema. Left arm in a sling with sensation intact to the hand and able to move fingers. Chronic left sided weakness to UE/LE from prior CVA. Sensation intact. DP pulses bilaterally. Neuro: Patient is alert. Speech is clear. Objective Data Vital Signs Vital Signs: Vital Signs - 24 hr 09/23/25 13:37 09/23/25 15:13 09/23/25 15:18 Temperature 97.4 F L Pulse Rate 78 89 79 Respiratory Rate 14 16 19 Blood Pressure 145/94 H 97/60 L 115/89 Pulse Oximetry 100 98 98 Oxygen Delivery Room Air 09/23/25 15:19 09/23/25 15:31 09/23/25 16:01 Temperature Pulse Rate 77 77 74 Respiratory Rate 24 H 20 18 Blood Pressure 115/89 111/82 127/90 Pulse Oximetry 99 100 100 Oxygen Delivery 09/23/25 16:30 09/23/25 16:46 09/23/25 19:56 Temperature 97.9 F Pulse Rate 75 78 79 Respiratory Rate 19 20 16 Blood Pressure 136/92 H 143/89 H 139/91 H Pulse Oximetry 98 98 99 Oxygen Delivery 09/23/25 20:00 09/24/25 00:05 09/24/25 00:06 Temperature Pulse Rate 79 80 80 Respiratory Rate 16 Blood Pressure Pulse Oximetry 99 Oxygen Delivery Room Air 09/24/25 05:08 Temperature 97.6 F Pulse Rate 69 Respiratory Rate 16 Blood Pressure 91/55 L Pulse Oximetry 97 Oxygen Delivery Intake/Output Intake/Output: Intake & Output 09/21/25 09/22/25 09/23/25 09/24/25 23:59 23:59 23:59 23:59 Intake Total 1000 75 Balance 1000 75 Meds/Results Medications: Active Medications Generic Name Dose Route Start Last Admin Trade Name Freq PRN Reason Stop Dose Admin Acetaminophen 650 mg 09/23/25 17:19 Acetaminophen 325 Mg Tablet PO Q4H PRN Mild Pain (1-3) or Fever Hydrocodone Bitart/Acetaminophen 1 tab 09/23/25 23:16 09/24/25 00:47 Hydrocodone/Acetaminophen (*Crx) 5-325 Mg Tablet PO 1 tab Q4H PRN Administration Pain Rated 4-6 Duloxetine HCl 60 mg 09/24/25 09:00 Duloxetine Hcl 60 Mg Capsule.Dr PO DAILY FAUSTO Dutasteride 0.5 mg 09/24/25 21:00 Dutasteride 0.5 Mg Capsule PO QHS FAUSTO Hydromorphone HCl 0.5 mg 09/23/25 17:19 09/23/25 21:31 Hydromorphone Hcl Inj (*Crx) 1 Mg/Ml Syr IV PUSH 0.5 mg Q4H PRN Administration Pain Rated 7-10 Sodium Chloride 1,000 mls @ 100 mls/hr 09/23/25 17:20 09/23/25 21:30 Normal Saline Iv IV CONT 100 mls/hr .Q10H [facility], [facility]1983 Administration Ipratropium [place] 2 spray 09/24/25 09:00 Ipratropium Nasal [place] 0.03% 15 Ml Bottle NASAL Q12HR [facility], [facility]1983 Irbesartan 75 mg 09/23/25 23:15 09/24/25 00:05 Irbesartan 75 Mg Tablet BY MOUTH 75 mg DAILY [facility]1983 Administration Levetiracetam 500 mg 09/23/25 23:15 09/24/25 00:05 Levetiracetam 500 Mg Tablet PO 500 mg Q12HR [facility]1983 Administration Ondansetron HCl 4 mg 09/23/25 17:19 09/23/25 21:30 Ondansetron Inj 4 Mg/2 Ml Vial IV PUSH 4 mg Q4H PRN Administration Nausea Pantoprazole Sodium 40 mg 09/24/25 09:00 Pantoprazole 40 Mg Tablet PO QAM [facility]1983 Psyllium Hydrophilic Mucilloid 1 packet 09/24/25 09:00 Psyllium Powder Packet BY MOUTH DAILY [facility] Sotalol HCl 40 mg 09/23/25 23:25 09/24/25 00:05 Sotalol Hcl 40 Mg Tablet PO 40 mg Q12HR [facility] Administration Sotalol HCl 80 mg 09/23/25 23:30 09/24/25 00:06 Sotalol Hcl 80 Mg Tablet PO 80 mg Q12HR [facility] Administration Tamsulosin HCl 0.4 mg 09/23/25 23:20 09/24/25 00:04 Tamsulosin Hcl 0.4 Mg Capsule PO 0.4 mg QHS [facility] Administration Warfarin Sodium 5 mg 09/24/25 17:00 Warfarin (*Pbkc) 5 Mg Tablet PO [id number]@1700 [facility] Warfarin Sodium 2.5 mg 09/27/25 17:00 Warfarin (*Pbkc) 2.5 Mg Tablet PO TuTh@1700 [facility] Radiology Results: ITS Impressions Shoulder X-Ray 09/23/25 13:31 Impression: Fracture detailed above Chest X-Ray 09/23/25 15:47 Impression: Early left lower lobe pneumonia Shoulder CT 09/23/25 19:01 IMPRESSION: 1. Computed 1 part fracture of the proximal left humerus. Labs Labs: Laboratory Results - last 24 hr 09/23/25 09/23/25 09/24/25 15:49 20:00 05:06 WBC 14.9 H RBC 5.23 Hgb 15.3 Hct 47.9 MCV 91.6 MCH 29.3 MCHC 31.9 L RDW 15.0 H Plt Count 182 MPV 9.6 Immature Gran % (Auto) 0.4 Neut % (Auto) 81.2 H Lymph % (Auto) 12.9 L [place] % (Auto) 5.2 Eos % (Auto) 0.1 Baso % (Auto) 0.2 Lymph # (Auto) 1.91 [place] # (Auto) 0.8 H Eos # (Auto) 0.0 Baso # (Auto) 0.0 Abs Immat Gran (auto) 0.06 H Absolute Neuts (auto) 12.1 H Absolute Nucleated RBC 0.000 Nucleated RBC % 0.0 PT 22.8 H 24.2 H INR 2.1 2.3 Sodium 136 L Potassium 4.6 Chloride 106 Carbon Dioxide 26 Anion Gap 4 BUN 22 H Creatinine 1.23 Estim Creat Clear Calc 58 Estimated GFR 58 L Glucose 156 H POC Capillary Glucose 120 H Calcium 8.5 Total Bilirubin 1.3 AST 15 L ALT 10 Alkaline Phosphatase 102 Total Protein 6.2 L Albumin 3.6 09/24/25 05:07 WBC 10.3 H RBC 4.26 L Hgb 12.6 L Hct 39.4 L MCV 92.5 MCH 29.6 MCHC 32.0 RDW 15.1 H Plt Count 139 L MPV 9.8 Immature Gran % (Auto) Neut % (Auto) Lymph % (Auto) [place] % (Auto) Eos % (Auto) Baso % (Auto) Lymph # (Auto) [place] # (Auto) Eos # (Auto) Baso # (Auto) Abs Immat Gran (auto) Absolute Neuts (auto) Absolute Nucleated RBC Nucleated RBC % PT INR Sodium 135 L Potassium 4.7 Chloride 110 H Carbon Dioxide 24 Anion Gap 1 L BUN 23 H Creatinine 1.16 Estim Creat Clear Calc 61 Estimated GFR > 60 Glucose 108 POC Capillary Glucose Calcium 7.6 L Total Bilirubin AST ALT Alkaline Phosphatase Total Protein Albumin Quality VTE Prophylaxis VTE prophylaxis: pharmacologic ordered (warfarin )
--- NOTE | 2025-09-24 08:11 | PCPTNOTE ---
09/24, patient has bedrest orders and still need consultation from orthopedics.
[2025-09-24] MEDS: SODIUM CHLORIDE 0.9% IV 1,000 ML 100 ML IV CONT (08:49)
[2025-09-24] MEDS: IPRATROPIUM NASAL SPRAY 0.03% 15 ML BOTTLE 2 SPRAY NASAL ×2 (08:50→22:52)
[2025-09-24] MEDS: DULoxetine HCL 60 MG CAPSULE.DR PO (08:50)
[2025-09-24] MEDS: PANTOPRAZOLE 40 MG TABLET PO (08:52)
--- NOTE | 2025-09-24 10:54 | PM.CNOR ---
Assessment and Plan Assessment and plan (1) Closed fracture of left proximal humerus: Qualifiers: Encounter type: initial encounter Fracture morphology: other fracture Fracture alignment: displaced Qualified Code(s): S42.292A - Other displaced fracture of upper end of left humerus, initial encounter for closed fracture Code(s): S42.202A - Unspecified fracture of upper end of left humerus, initial encounter for closed fracture Status: Acute Plan The patient is a 75-year-old male who was admitted for evaluation with regards to his left shoulder proximal humerus fracture after falling yesterday after bending over trying to plug in the device into the wall stood up was lightheaded and fell on to his left shoulder he reports pain only to the left shoulder no pain at the hips and no pain anywhere else. 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 He has a left upper and lower extremity weakness as a residual from this hemorrhagic stroke at the age of 59. He ambulates with a cane on the right side. He lives at home with his who is currently here today and her name is Debbie. Given the fact that the patient has a significant history for left upper and lower weakness residual from hemorrhagic stroke, and limited ADL, I would recommend conservative treatment of his Left prox hum fracture. - he can use the Left Upper extremity as he tolerates (ie for balance and ambulation and for transfers) - recommend rehab evaluation - follow up with my office 1 week from time of discharge. - recommend walker with left arm platform while at rehab History of Present Illness HPI Consult date: 09/24/25 Chief complaint: Fracture left shoulder, Unable to ambulate without Narrative: The patient is a 75-year-old male who was admitted for evaluation with regards to his left shoulder proximal humerus fracture after falling yesterday after bending over trying to plug in the device into the wall stood up was lightheaded and fell on to his left shoulder he reports pain only to the left shoulder no pain at the hips and no pain anywhere else. 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 He has a left upper and lower extremity weakness as a residual from this hemorrhagic stroke at the age of 59. He ambulates with a cane on the right side. He lives at home with his who is currently here today and her name is Debbie. [facility] Past Medical History Medical History (Updated 09/24/25 @ 10:57 by Mitchell Lawson MD) BPH loc w urin obs/LUTS Renal stone Neck pain Hearing loss Dizziness Left hemiparesis Right-sided cerebrovascular accident (CVA) Hepatitis C antibody test negative (10/25/20) UTI (urinary tract infection) DVT prophylaxis Rectus sheath hematoma Anemia Sepsis associated hypotension Pneumonia Depression GERD (gastroesophageal reflux disease) DVT (deep venous thrombosis) Peripheral neuropathy Hemiplegia and hemiparesis following unspecified cerebrovascular disease affecting left non-dominant side Lipoprotein deficiency Pyelonephritis Essential (primary) hypertension 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 hyperlipidemia [place] (current) use of 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 monitored by cardiology Major depressive disorder, single episode, unspecified Personal history of other venous thrombosis and embolism Strain of lumbar region Unspecified atrial fibrillation Paroxysmal Surgical History Surgical History History of repair of anterior cruciate ligament of right knee H/O vasectomy History of cholecystectomy S/P IVC filter H/O craniotomy Status post hemorrhagic stroke Family History Family History Father Family history of cardiovascular disease Mother Family history of malignant neoplasm of breast in first degree relative Other Cerebrovascular accident Depression Family history of atrial fibrillation Family history of elevated blood lipids Family history of kidney disease Family history of malignant neoplasm of breast Hypertension Social History Social History (Updated 09/23/25 @ 23:04 by Deena Haynes APRN) Social History: The patient lives with his Debbie who is a [id number]. Patient desires to be a full code. He has 3 daughter. 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 Rarely drinks and is a lifelong nonsmoker. Smoking status: Never smoker Second hand tobacco smoke exposure: No Alcohol intake: never Alcohol use details: rarely Substance use: never Substance use type: does not use Do You Feel Safe in your Home?: Yes Lack of Transportation: No Lack of Food: Never True Current Housing: I Have Housing Concerned About Future Housing: No Difficulty Paying Gas/Electric Bills: No Difficulty Paying for Meds: No Currently Unemployed: No Education: Master's Degree or Higher Difficulty w/ Childcare or Family Care: No Living arrangements: with family Occupation/Education: retired Gender identity (if verbalized by the patient): Male Spiritual care concerns: No Agree to blood products: Yes Meds Home Medications and Allergies Home Medications ?Medication ?Instructions ?Recorded ?Confirmed ?Type sotalol 120 mg tablet 120 mg PO Q12H 04/25/22 09/23/25 History warfarin 5 mg tablet 5 mg PO QHS 11/26/24 09/23/25 History duloxetine 60 mg capsule,delayed 60 mg PO DAILY #90 caps 06/06/25 09/23/25 Rx release irbesartan 75 mg tablet See Rx Instructions .Route 08/22/25 09/23/25 Rx .COMPLEX #90 tabs omeprazole 20 mg capsule,delayed See Rx Instructions .Route 08/29/25 09/23/25 Rx release .COMPLEX #90 caps dutasteride 0.5 mg capsule 0.5 mg PO QHS 09/23/25 09/23/25 History (Avodart) ipratropium bromide 21 mcg (0.03 2 spray intranasal BID 09/23/25 09/23/25 History %) nasal spray levetiracetam 1,000 mg tablet 500 mg PO Q12H 09/23/25 09/23/25 History (Keppra) psyllium husk 0.4 gram capsule 0.4 g PO BID 09/23/25 09/23/25 History (Metamucil) tamsulosin 0.4 mg capsule (Flomax) 0.4 mg PO QHS 09/23/25 09/23/25 History warfarin 2.5 mg tablet 2.5 mg PO 2XW 09/23/25 09/23/25 History Allergies Allergy/AdvReac Type Severity Reaction Status Date / Time Penicillins Allergy Unknown Shock Verified 09/23/25 21:56 Vital Signs Vital Signs - 24 hr 09/23/25 13:37 09/23/25 15:13 09/23/25 15:18 Temperature 36.3 C L Pulse Rate 78 89 79 Respiratory Rate 14 16 19 Blood Pressure 145/94 H 97/60 L 115/89 Pulse Oximetry 100 98 98 Oxygen Delivery Room Air 09/23/25 15:19 09/23/25 15:31 09/23/25 16:01 Temperature Pulse Rate 77 77 74 Respiratory Rate 24 H 20 18 Blood Pressure 115/89 111/82 127/90 Pulse Oximetry 99 100 100 Oxygen Delivery 09/23/25 16:30 09/23/25 16:46 09/23/25 19:56 Temperature 36.6 C Pulse Rate 75 78 79 Respiratory Rate 19 20 16 Blood Pressure 136/92 H 143/89 H 139/91 H Pulse Oximetry 98 98 99 Oxygen Delivery 09/23/25 20:00 09/24/25 00:05 09/24/25 00:06 Temperature Pulse Rate 79 80 80 Respiratory Rate 16 Blood Pressure Pulse Oximetry 99 Oxygen Delivery Room Air 09/24/25 05:08 09/24/25 08:01 09/24/25 08:23 Temperature 36.4 C 36.6 C Pulse Rate 69 68 Respiratory Rate 16 16 Blood Pressure 91/55 L 100/60 Pulse Oximetry 97 93 97 Oxygen Delivery Room Air 09/24/25 08:52 Temperature Pulse Rate 68 Respiratory Rate Blood Pressure Pulse Oximetry Oxygen Delivery Exam Narrative: Examination of the patient's left upper extremity shows that he currently is in a sling. He has significant ecchymoses noted going down the arm into the elbow but no tenderness at the elbow no swelling tenderness or deformity at the wrist. Const: General: cooperative, comfortable, alert and awake Nutritional Appearance: average body habitus Orientation/consciousness: oriented to person, oriented to place and oriented to time Results Labs 09/24/25 05:07 09/24/25 05:07 Labs: Abnormal lab results 09/23/25 09/23/25 09/24/25 Range/Units 15:49 20:00 05:06 WBC 14.9 H (4.5-10.0) K/mm3 RBC (4.6-6.20) M/mm3 Hgb (14.0-18.0) g/dL Hct (42.0-52.0) % MCHC 31.9 L (32-36) g/dl RDW 15.0 H (11.5-14.5) % Plt Count (150-375) k/mm3 Neut % (Auto) 81.2 H (45.5-73.1) % Lymph % (Auto) 12.9 L (18.3-44.2) % [place] # (Auto) 0.8 H (0.1-0.6) K/mm3 Abs Immat Gran (auto) 0.06 H (0.00-0.031) K/mm3 Absolute Neuts (auto) 12.1 H (1.3-6.7) K/mm3 PT 22.8 H 24.2 H (11.1-14.7) Seconds Sodium 136 L (137-145) mmol/L Chloride (98-107) mmol/L Anion Gap (4-12) mmol/L BUN 22 H (9-20) mg/dL Estimated GFR 58 L (59 - ) Glucose 156 H (65-110) mg/dL POC Capillary Glucose 120 H (65-105) mg/dl Calcium (8.4-10.2) mg/dL AST 15 L (17-59) U/L Total Protein 6.2 L (6.3-8.2) g/dL 09/24/25 Range/Units 05:07 WBC 10.3 H (4.5-10.0) K/mm3 RBC 4.26 L (4.6-6.20) M/mm3 Hgb 12.6 L (14.0-18.0) g/dL Hct 39.4 L (42.0-52.0) % MCHC (32-36) g/dl RDW 15.1 H (11.5-14.5) % Plt Count 139 L (150-375) k/mm3 Neut % (Auto) (45.5-73.1) % Lymph % (Auto) (18.3-44.2) % [place] # (Auto) (0.1-0.6) K/mm3 Abs Immat Gran (auto) (0.00-0.031) K/mm3 Absolute Neuts (auto) (1.3-6.7) K/mm3 PT (11.1-14.7) Seconds Sodium 135 L (137-145) mmol/L Chloride 110 H (98-107) mmol/L Anion Gap 1 L (4-12) mmol/L BUN 23 H (9-20) mg/dL Estimated GFR (59 - ) Glucose (65-110) mg/dL POC Capillary Glucose (65-105) mg/dl Calcium 7.6 L (8.4-10.2) mg/dL AST (17-59) U/L Total Protein (6.3-8.2) g/dL H & H 09/23/25 09/24/25 Range/Units 15:49 05:07 Hgb 15.3 12.6 L (14.0-18.0) g/dL Hct 47.9 39.4 L (42.0-52.0) % Coagulation 09/23/25 09/24/25 Range/Units 15:49 05:06 INR 2.1 2.3 All other labs normal.
[2025-09-24] MEDS: PSYLLIUM POWDER PACKET 1 PACKET BY MOUTH (10:57)
[2025-09-24] MEDS: ACETAMINOPHEN 325 MG TABLET 650 MG PO (11:02)
[2025-09-24] MEDS: WARFARIN (*PBKC) 5 MG TABLET PO (19:02)
[2025-09-24] MEDS: DUTASTERIDE 0.5 MG CAPSULE PO (22:50)
[2025-09-25] VITALS (8 sets, daily range): BP systolic 107–122; BP diastolic 63–74; PULSE 65–77; RESP 16–18; TEMP 36.4–36.6; O2SAT 95–100
[2025-09-25] MEDS: HYDROcodone/acetaminophen (*CRX) 5-325 MG TABLET 1 TAB PO ×3 (00:35→17:24)
--- NOTE | 2025-09-25 02:00 | PC.NURSE ---
Daylight Savings Time For Daylight Savings Time Ending in the Fall - Clocks are moved back. For Daylight Savings Time Beginning in the Spring - Clocks are moved ahead. For [facility], the time of change occurs at 0200 hrs. Time is taken from the line server. This entry on the patient's chart recognizes the change in time reflected during documentation. Example: 2 entries for vital signs may be charted for 0200 hrs.
[2025-09-25 05:09] LABS: Hematocrit 35.0 % (42.0-52.0); Hemoglobin 11.2 g/dL (14.0-18.0); Mean Corpuscular HGB Conc 32.0 g/dl (32-36); Mean Corpuscular Hemoglobin 29.9 pg (26-34); Mean Corpuscular Volume 93.3 fl (80-100); Platelet Count Result 126 k/mm3 (150-375); Red Blood Count 3.75 M/mm3 (4.6-6.20); White Blood Count 9.6 K/mm3 (4.5-10.0)
[2025-09-25 05:27] LABS: Alanine Aminotransferase 6 U/L (6-50); Albumin Level 2.7 g/dL (3.5-5.1); Alkaline Phosphatase 65 U/L (38-126); Anion Gap 1 mmol/L (4-12); Aspartate Amino Transferase 11 U/L (17-59); Bilirubin,Total 1.2 mg/dL (0.2-1.3); Blood Urea Nitrogen 27 mg/dL (9-20); Calcium 7.7 mg/dL (8.4-10.2); Carbon Dioxide 26 mmol/L (22-30); Chloride 109 mmol/L (98-107); Estimated CRCL calculation 65 ml/min; Estimated Glomerular Filt Rate > 60; Glucose 105 mg/dL (65-110); Potassium 4.7 mmol/L (3.4-5.0); Sodium 136 mmol/L (137-145); Total Protein 5.1 g/dL (6.3-8.2)
[2025-09-25 05:46] LABS: INR 2.2; Prothrombin Time 23.4 Seconds (11.1-14.7)
--- NOTE | 2025-09-25 07:11 | P.PNIM_ITS ---
Progress Note: A&P Assessment and Plan (1) Fall: Code(s): W19.XXXA - Unspecified fall, initial encounter Status: Acute Assessment and Plan: Mechanical ground level fall after tripping over his foot onto his left side, denies LOC or head strike. Denies dizziness or lightheadedness prior to fall. On chronic anticoagulation. - Chest XR: Early left lower lobe pneumonia Afebrile with downtrending WBC despite no antibiotic intervention and asymptomatic, leukocytosis likely reactive to acute fracture. - Shoulder XR: Impacted nondisplaced fracture of the humeral neck. - Shoulder CT: Comminuted fracture of the proximal left humerus - Head CT: no acute intracranial findings - See plan below (2) Closed left humeral fracture: Code(s): S42.302A - Unspecified fracture of shaft of humerus, left arm, initial encounter for closed fracture Status: Acute Assessment and Plan: Shoulder XR: Impacted nondisplaced fracture of the humeral neck. Shoulder CT: Comminuted fracture of the proximal left humerus - SCDs/TEDs, warfarin - analgesic: Tylenol 650 mg q4prn, [place] 5-325 mg q4prn, and Dilaudid 0.5 mg IV q4prn well controlled, has been off of IV medications since 09/23 - bowel regimen: Metamucil and senna - PT/OT ordered, follow weight restrictions per ortho recommendations Recommending Acute Rehab, patient agreeable. Care coordination working on placement. - Ortho consulted, appreciate recommendations Given the fact that the patient has a significant history for left upper and lower weakness residual from hemorrhagic stroke, and limited ADL, I would recommend conservative treatment of his Left prox hum fracture. Use the Left Upper extremity as he tolerates (ie for balance and ambulation and for transfers) Recommend rehab evaluation, recommend walker with left arm platform while at rehab Follow up with my office 1 week from time of discharge. (3) Essential (primary) hypertension: Code(s): I10 - Essential (primary) hypertension Status: Acute Assessment and Plan: Chronic, continue home medications - irbesartan 75 mg daily - blood pressures reviewed and stable, continue to monitor (4) Unspecified atrial fibrillation: Qualifiers: Atrial fibrillation type: paroxysmal Qualified Code(s): I48.0 - Paroxysmal atrial fibrillation Code(s): I48.91 - Unspecified atrial fibrillation Status: Chronic Assessment and Plan: Chronic, currently in sinus rhythm Continue warfarin as previously prescribed, INR currently therapeutic Continue sotalol 120 mg BID (5) 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 (6) Seizure disorder: Code(s): G40.909 - Epilepsy, unspecified, not intractable, without status epilepticus Status: Acute Assessment and Plan: Continue keppra 500 mg BID Time Spent With Patient Time with patient: 25 - 35 minutes Subjective Date/time seen: 09/25/25 07:11 Interval history: 75 year old male with past medical history of stroke with left sided deficits, dvt on chronic anticoagulation, seizure, htn, hld, paroxysmal afib, and mdd presents to the hospital following a ground level mechanical fall onto his left side. Patient is pleasant sitting up comfortably in bed with family at bedside. He states that pain is well controlled on the current regimen. He has no other complaints denying chest pain, shortness a palpitations, nausea /vomiting, and abdominal pain. He notes that he has had a bowel movement since the fall. Passing flatus. Tolerating diet well. He states that he is agreeable to rehab and is working with Care coordination complaints Review of Systems Review of Systems: All systems reviewed & are unremarkable except as noted in HPI and below Exam Narrative: AF HR 75 RR 16 Spo2 95 BP 107/67 General: male in no acute respiratory distress who is nontoxic appearing, sitting up in bed. HEENT: Normocephalic. Atraumatic. Extraocular movement intact. Sclera clear and anicteric.No facial asymmetry. Chest: Lungs are clear to auscultation bilaterally. CV: Heart was regular rate and rhythm. Abd: Abdomen was soft. Nontender. Nondistended. Positive bowel sounds. Ext: No clubbing, cyanosis, or edema. Left arm in a sling with sensation intact to the hand and able to move fingers. Chronic left sided weakness to UE/LE from prior CVA. Sensation intact. DP pulses bilaterally. Neuro: Patient is alert. Speech is clear. Objective Data Vital Signs Vital Signs: Vital Signs - 24 hr 09/24/25 08:23 09/24/25 08:52 09/24/25 10:57 Temperature 97.8 F Pulse Rate 68 68 73 Respiratory Rate 16 Blood Pressure 100/60 Pulse Oximetry 97 Oxygen Delivery 09/24/25 13:08 09/24/25 14:12 09/24/25 14:14 Temperature 97.2 F L 98.0 F Pulse Rate 82 75 Respiratory Rate 16 18 Blood Pressure 135/84 120/62 Pulse Oximetry 96 100 Oxygen Delivery Room Air 09/24/25 15:55 09/24/25 17:05 09/24/25 20:00 Temperature Pulse Rate 76 Respiratory Rate Blood Pressure 104/74 114/79 Pulse Oximetry 99 Oxygen Delivery Room Air 09/24/25 21:09 09/24/25 22:51 09/24/25 22:54 Temperature 98.0 F Pulse Rate 75 74 74 Respiratory Rate 16 Blood Pressure 104/65 Pulse Oximetry 99 Oxygen Delivery 09/25/25 06:07 Temperature 97.6 F Pulse Rate 65 Respiratory Rate 16 Blood Pressure 112/63 Pulse Oximetry 100 Oxygen Delivery Intake/Output Intake/Output: Intake & Output 09/22/25 09/23/25 09/24/25 09/25/25 23:59 23:59 23:59 22:59 Intake Total 1000 1495 250 Output Total 205 300 Balance 1000 1290 -50 Meds/Results Medications: Active Medications Generic Name Dose Route Start Last Admin Trade Name Freq PRN Reason Stop Dose Admin Acetaminophen 650 mg 09/23/25 17:19 09/24/25 11:02 Acetaminophen 325 Mg Tablet PO 650 mg Q4H PRN Administration Mild Pain (1-3) or Fever Hydrocodone Bitart/Acetaminophen 1 tab 09/23/25 23:16 09/25/25 05:37 Hydrocodone/Acetaminophen (*Crx) 5-325 Mg Tablet PO 1 tab Q4H PRN Administration Pain Rated 4-6 Duloxetine HCl 60 mg 09/24/25 09:00 09/24/25 08:50 Duloxetine Hcl 60 Mg Capsule.Dr PO 60 mg DAILY FAUSTO Administration Dutasteride 0.5 mg 09/24/25 21:00 09/24/25 22:50 Dutasteride 0.5 Mg Capsule PO 0.5 mg QHS [facility]USTO Administration Hydromorphone HCl 0.5 mg 09/23/25 17:19 09/23/25 21:31 Hydromorphone Hcl Inj (*Crx) 1 Mg/Ml Syr IV PUSH 0.5 mg Q4H PRN Administration Pain Rated 7-10 Ipratropium [place] 2 spray 09/24/25 09:00 09/24/25 22:52 Ipratropium Nasal [place] 0.03% 15 Ml Bottle NASAL 2 spray Q12HR [facility] Administration Irbesartan 75 mg 09/23/25 23:15 09/24/25 08:52 Irbesartan 75 Mg Tablet BY MOUTH 75 mg DAILY [facility] Administration Levetiracetam 500 mg 09/23/25 23:15 09/24/25 22:50 Levetiracetam 500 Mg Tablet PO 500 mg Q12HR [facility] Administration Ondansetron HCl 4 mg 09/23/25 17:19 09/23/25 21:30 Ondansetron Inj 4 Mg/2 Ml Vial IV PUSH 4 mg Q4H PRN Administration Nausea Pantoprazole Sodium 40 mg 09/24/25 09:00 09/24/25 08:52 Pantoprazole 40 Mg Tablet PO 40 mg QAM [facility] Administration Psyllium Hydrophilic Mucilloid 1 packet 09/24/25 09:00 09/24/25 10:57 Psyllium Powder Packet BY MOUTH 1 packet DAILY [facility] Administration Sotalol HCl 40 mg 09/23/25 23:25 09/24/25 22:51 Sotalol Hcl 40 Mg Tablet PO 40 mg Q12HR [facility] Administration Sotalol HCl 80 mg 09/23/25 23:30 09/24/25 22:54 Sotalol Hcl 80 Mg Tablet PO 80 mg Q12HR [facility] Administration Tamsulosin HCl 0.4 mg 09/23/25 23:20 09/24/25 22:50 Tamsulosin Hcl 0.4 Mg Capsule PO 0.4 mg QHS [facility] Administration Warfarin Sodium 5 mg 09/24/25 17:00 09/24/25 19:02 Warfarin (*Pbkc) 5 Mg Tablet PO 5 mg [email or web address] [facility] Administration Warfarin Sodium 2.5 mg 09/27/25 17:00 Warfarin (*Pbkc) 2.5 Mg Tablet PO TuTh@1700 [facility] Radiology Results: ITS Impressions Shoulder X-Ray 09/23/25 13:31 Impression: Fracture detailed above Chest X-Ray 09/23/25 15:47 Impression: Early left lower lobe pneumonia Shoulder CT 09/23/25 19:01 IMPRESSION: 1. Computed 1 part fracture of the proximal left humerus. Head CT 09/24/25 10:41 IMPRESSION: 1. No acute intracranial findings. Labs Labs: Laboratory Results - last 24 hr 09/24/25 09/25/25 14:21 04:54 WBC 9.6 RBC 3.75 L Hgb 11.2 L Hct 35.0 L MCV 93.3 MCH 29.9 MCHC 32.0 RDW 15.2 H Plt Count 126 L MPV 9.7 PT 23.4 H INR 2.2 Sodium 136 L Potassium 4.7 Chloride 109 H Carbon Dioxide 26 Anion Gap 1 L BUN 27 H Creatinine 1.08 Estim Creat Clear Calc 65 Estimated GFR > 60 Glucose 105 POC Capillary Glucose 162 H Calcium 7.7 L Total Bilirubin 1.2 AST 11 L ALT 6 Alkaline Phosphatase 65 Total Protein 5.1 L Albumin 2.7 L Quality VTE Prophylaxis VTE prophylaxis: pharmacologic ordered (warfarin )
[2025-09-25] MEDS: IPRATROPIUM NASAL SPRAY 0.03% 15 ML BOTTLE 2 SPRAY NASAL ×2 (08:11→21:44)
[2025-09-25] MEDS: PSYLLIUM POWDER PACKET 1 PACKET BY MOUTH (08:11)
[2025-09-25] MEDS: DULoxetine HCL 60 MG CAPSULE.DR PO (08:11)
[2025-09-25] MEDS: IRBESARTAN 75 MG TABLET BY MOUTH (08:12)
[2025-09-25] MEDS: PANTOPRAZOLE 40 MG TABLET PO (08:12)
[2025-09-25] MEDS: SOTALOL HCL 80 MG TABLET PO ×2 (08:16→21:10)
[2025-09-25] MEDS: WARFARIN (*PBKC) 5 MG TABLET PO (17:17)
[2025-09-25] MEDS: TAMSULOSIN HCL 0.4 MG CAPSULE PO (21:06)
[2025-09-25] MEDS: SENNA/DOCUSATE SODIUM TABLET 1 TAB PO (21:06)
[2025-09-25] MEDS: DUTASTERIDE 0.5 MG CAPSULE PO (21:07)
[2025-09-26] VITALS (8 sets, daily range): BP systolic 118–135; BP diastolic 72–92; PULSE 64–84; RESP 16–18; TEMP 36.2–36.9; O2SAT 95–97
[2025-09-26] MEDS: HYDROcodone/acetaminophen (*CRX) 5-325 MG TABLET 1 TAB PO ×3 (02:17→19:02)
[2025-09-26 05:07] LABS: Hematocrit 34.9 % (42.0-52.0); Hemoglobin 11.0 g/dL (14.0-18.0); Mean Corpuscular HGB Conc 31.5 g/dl (32-36); Mean Corpuscular Hemoglobin 29.6 pg (26-34); Mean Corpuscular Volume 93.8 fl (80-100); Platelet Count Result 125 k/mm3 (150-375); Red Blood Count 3.72 M/mm3 (4.6-6.20); White Blood Count 7.7 K/mm3 (4.5-10.0)
[2025-09-26 05:21] LABS: INR 2.5; Prothrombin Time 26.4 Seconds (11.1-14.7)
[2025-09-26 05:41] LABS: Alanine Aminotransferase 6 U/L (6-50); Albumin Level 2.8 g/dL (3.5-5.1); Alkaline Phosphatase 66 U/L (38-126); Anion Gap 1 mmol/L (4-12); Aspartate Amino Transferase 14 U/L (17-59); Bilirubin,Total 1.2 mg/dL (0.2-1.3); Blood Urea Nitrogen 22 mg/dL (9-20); Calcium 7.7 mg/dL (8.4-10.2); Carbon Dioxide 27 mmol/L (22-30); Chloride 107 mmol/L (98-107); Estimated CRCL calculation 70 ml/min; Estimated Glomerular Filt Rate > 60; Glucose 95 mg/dL (65-110); Potassium 3.9 mmol/L (3.4-5.0); Sodium 135 mmol/L (137-145); Total Protein 5.2 g/dL (6.3-8.2)
--- NOTE | 2025-09-26 07:33 | PM.IMPN ---
Progress Note: A&P Assessment and Plan (1) Fall: Code(s): W19.XXXA - Unspecified fall, initial encounter Status: Acute Assessment and Plan: Mechanical ground level fall after tripping over his foot onto his left side, denies LOC or head strike. Denies dizziness or lightheadedness prior to fall. On chronic anticoagulation. - Chest XR: Early left lower lobe pneumonia Afebrile with downtrending WBC despite no antibiotic intervention and asymptomatic, leukocytosis likely reactive to acute fracture. - Shoulder XR: Impacted nondisplaced fracture of the humeral neck. - Shoulder CT: Comminuted fracture of the proximal left humerus - Head CT: no acute intracranial findings - See plan below (2) Closed left humeral fracture: Code(s): S42.302A - Unspecified fracture of shaft of humerus, left arm, initial encounter for closed fracture Status: Acute Assessment and Plan: Shoulder XR: Impacted nondisplaced fracture of the humeral neck. Shoulder CT: Comminuted fracture of the proximal left humerus - SCDs/TEDs, warfarin - analgesic: Tylenol 650 mg q4prn, [place] 5-325 mg q4prn, [place] 7.5-325 mg q4prn, and Dilaudid 0.5 mg IV q4prn well controlled, has been off of IV medications since 09/23 started on norco 7.5-325 mg q4prn for higher breakthrough pain during therapy - bowel regimen: Metamucil and senna - PT/OT ordered, follow weight restrictions per ortho recommendations Recommending Acute Rehab, patient agreeable. Care coordination working on placement. - Ortho consulted, appreciate recommendations Use the Left Upper extremity as he tolerates (ie for balance and ambulation and for transfers) Recommend rehab evaluation, recommend walker with left arm platform while at rehab Follow up with my office 1 week from time of discharge. Continue pain regimen as above. Working well with therapy. Awaiting placement for SNF. (3) Essential (primary) hypertension: Code(s): I10 - Essential (primary) hypertension Status: Acute Assessment and Plan: Chronic, continue home medications - irbesartan 75 mg daily - blood pressures reviewed and stable, continue to monitor (4) Unspecified atrial fibrillation: Qualifiers: Atrial fibrillation type: paroxysmal Qualified Code(s): I48.0 - Paroxysmal atrial fibrillation Code(s): I48.91 - Unspecified atrial fibrillation Status: Chronic Assessment and Plan: Chronic, currently in sinus rhythm Continue warfarin as previously prescribed, INR currently therapeutic Continue sotalol 120 mg BID (5) 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 (6) Seizure disorder: Code(s): G40.909 - Epilepsy, unspecified, not intractable, without status epilepticus Status: Acute Assessment and Plan: Continue keppra 500 mg BID Time Spent With Patient Time with patient: 25 - 35 minutes Subjective Date/time seen: 09/26/25 07:33 Interval history: 75 year old male with past medical history of stroke with left sided deficits, dvt on chronic anticoagulation, seizure, htn, hld, paroxysmal afib, and mdd presents to the hospital following a ground level mechanical fall onto his left side. Patient is pleasant sitting up comfortably in bed. He continues to endorse pain to the left arm but states the pain regimen is covering this well. He still has not had a BM but is passing flatus. He denies nausea/vomiting/abdominal pain and is tolerating diet well. He has no other complaints denying chest pain, palpitations, shortness of breath. Review of Systems Review of Systems: All systems reviewed & are unremarkable except as noted in HPI and below Exam Narrative: AF HR 78 RR 16 Spo2 97 BP 118/92 General: male in no acute respiratory distress who is nontoxic appearing, sitting up in bed. HEENT: Normocephalic. Atraumatic. Extraocular movement intact. Sclera clear and anicteric.No facial asymmetry. Chest: Lungs are clear to auscultation bilaterally. Speaking full sentences. CV: Heart was regular rate and rhythm. Abd: Abdomen was soft. Nontender. Nondistended. Positive bowel sounds. Ext: No clubbing, cyanosis, or edema. Left arm in a sling with sensation intact to the hand and able to move fingers. Chronic left sided weakness to UE/LE from prior CVA. Sensation intact. DP pulses bilaterally. Neuro: Patient is alert. Speech is clear. Objective Data Vital Signs Vital Signs: Vital Signs - 24 hr 09/25/25 08:00 09/25/25 08:13 09/25/25 08:16 Temperature Pulse Rate 75 75 Respiratory Rate Blood Pressure Pulse Oximetry Oxygen Delivery Room Air 09/25/25 08:17 09/25/25 14:00 09/25/25 20:00 Temperature 97.8 F Pulse Rate 75 76 Respiratory Rate 18 Blood Pressure 107/67 118/69 Pulse Oximetry 95 100 Oxygen Delivery Room Air 09/25/25 21:07 09/25/25 21:10 09/25/25 21:46 Temperature 97.7 F Pulse Rate 72 72 77 Respiratory Rate 16 Blood Pressure 122/74 Pulse Oximetry 99 Oxygen Delivery 09/26/25 05:35 Temperature 97.8 F Pulse Rate 67 Respiratory Rate 16 Blood Pressure 121/74 Pulse Oximetry 97 Oxygen Delivery Intake/Output Intake/Output: Intake & Output 09/23/25 09/24/25 09/25/25 09/26/25 23:59 23:59 22:59 23:59 Intake Total 1000 1495 970 250 Output Total 205 500 300 Balance 1000 1290 470 -50 Meds/Results Medications: Active Medications Generic Name Dose Route Start Last Admin Trade Name Freq PRN Reason Stop Dose Admin Acetaminophen 650 mg 09/23/25 17:19 09/24/25 11:02 Acetaminophen 325 Mg Tablet PO 650 mg Q4H PRN Administration Mild Pain (1-3) or Fever Hydrocodone Bitart/Acetaminophen 1 tab 09/23/25 23:16 09/26/25 02:17 Hydrocodone/Acetaminophen (*Crx) 5-325 Mg Tablet PO 1 tab Q4H PRN Administration Pain Rated 4-6 Duloxetine HCl 60 mg 09/24/25 09:00 09/25/25 08:11 Duloxetine Hcl 60 Mg Capsule.Dr PO 60 mg DAILY [facility]USTO Administration Dutasteride 0.5 mg 09/24/25 21:00 09/25/25 21:07 Dutasteride 0.5 Mg Capsule PO 0.5 mg QHS [facility] Administration Hydromorphone HCl 0.5 mg 09/23/25 17:19 09/23/25 21:31 Hydromorphone Hcl Inj (*Crx) 1 Mg/Ml Syr IV PUSH 0.5 mg Q4H PRN Administration Pain Rated 7-10 Ipratropium [place] 2 spray 09/24/25 09:00 09/25/25 21:44 Ipratropium Nasal [place] 0.03% 15 Ml Bottle NASAL 2 spray Q12HR [facility] Administration Irbesartan 75 mg 09/23/25 23:15 09/25/25 08:12 Irbesartan 75 Mg Tablet BY MOUTH 75 mg DAILY [facility] Administration Levetiracetam 500 mg 09/23/25 23:15 09/25/25 21:06 Levetiracetam 500 Mg Tablet PO 500 mg Q12HR [facility] Administration Ondansetron HCl 4 mg 09/23/25 17:19 09/23/25 21:30 Ondansetron Inj 4 Mg/2 Ml Vial IV PUSH 4 mg Q4H PRN Administration Nausea Pantoprazole Sodium 40 mg 09/24/25 09:00 09/25/25 08:12 Pantoprazole 40 Mg Tablet PO 40 mg QAM [facility] Administration Psyllium Hydrophilic Mucilloid 1 packet 09/24/25 09:00 09/25/25 08:11 Psyllium Powder Packet BY MOUTH 1 packet DAILY [facility] Administration Senna/Docusate Sodium 1 tab 09/25/25 21:00 09/25/25 21:06 Senna/Docusate Sodium Tablet PO 1 tab HS [facility] Administration Sotalol HCl 40 mg 09/23/25 23:25 09/25/25 21:07 Sotalol Hcl 40 Mg Tablet PO 40 mg Q12HR [facility] Administration Sotalol HCl 80 mg 09/23/25 23:30 09/25/25 21:10 Sotalol Hcl 80 Mg Tablet PO 80 mg Q12HR [facility] Administration Tamsulosin HCl 0.4 mg 09/23/25 23:20 09/25/25 21:06 Tamsulosin Hcl 0.4 Mg Capsule PO 0.4 mg QHS [facility] Administration Warfarin Sodium 5 mg 09/24/25 17:00 09/25/25 17:17 Warfarin (*Pbkc) 5 Mg Tablet PO 5 mg [email or web address] [facility] Administration Warfarin Sodium 2.5 mg 09/27/25 17:00 Warfarin (*Pbkc) 2.5 Mg Tablet PO TuTh@1700 [facility] Radiology Results: ITS Impressions Shoulder X-Ray 09/23/25 13:31 Impression: Fracture detailed above Chest X-Ray 09/23/25 15:47 Impression: Early left lower lobe pneumonia Shoulder CT 09/23/25 19:01 IMPRESSION: 1. Computed 1 part fracture of the proximal left humerus. Head CT 09/24/25 10:41 IMPRESSION: 1. No acute intracranial findings. Labs Labs: Laboratory Results - last 24 hr 09/26/25 04:28 WBC 7.7 RBC 3.72 L Hgb 11.0 L Hct 34.9 L MCV 93.8 MCH 29.6 MCHC 31.5 L RDW 14.9 H Plt Count 125 L MPV 9.7 PT 26.4 H INR 2.5 Sodium 135 L Potassium 3.9 Chloride 107 Carbon Dioxide 27 Anion Gap 1 L BUN 22 H Creatinine 1.00 Estim Creat Clear Calc 70 Estimated GFR > 60 Glucose 95 Calcium 7.7 L Total Bilirubin 1.2 AST 14 L ALT 6 Alkaline Phosphatase 66 Total Protein 5.2 L Albumin 2.8 L Quality VTE Prophylaxis VTE prophylaxis: pharmacologic ordered (warfarin )
[2025-09-26] MEDS: DULoxetine HCL 60 MG CAPSULE.DR PO (09:48)
[2025-09-26] MEDS: IPRATROPIUM NASAL SPRAY 0.03% 15 ML BOTTLE 2 SPRAY NASAL ×2 (09:50→20:37)
[2025-09-26] MEDS: IRBESARTAN 75 MG TABLET BY MOUTH (09:50)
[2025-09-26] MEDS: PANTOPRAZOLE 40 MG TABLET PO (09:52)
[2025-09-26] MEDS: SOTALOL HCL 80 MG TABLET PO ×2 (09:55→21:00)
[2025-09-26] MEDS: HYDROcodone/acetaminophen (*CRX) 7.5-325 MG TABLET 1 TAB PO (11:31)
--- NOTE | 2025-09-26 11:59 | PCPTNOTE ---
Patient refused PT this attempt secondary to being too tired. Patient was educated that his drowsiness was likely from the pain medication he had been given and participation in PT was strongly encouraged however patient continued to decline AM therapy session attempt. Will re-attempt.
[2025-09-26] MEDS: WARFARIN (*PBKC) 5 MG TABLET PO (16:34)
[2025-09-26] MEDS: SENNA/DOCUSATE SODIUM TABLET 1 TAB PO (20:34)
[2025-09-26] MEDS: DUTASTERIDE 0.5 MG CAPSULE PO (20:34)
[2025-09-26] MEDS: TAMSULOSIN HCL 0.4 MG CAPSULE PO (20:36)
[2025-09-27] VITALS (9 sets, daily range): BP systolic 129–146; BP diastolic 72–85; PULSE 74–82; RESP 16–20; TEMP 36.3–36.9; O2SAT 92–100
[2025-09-27] MEDS: HYDROcodone/acetaminophen (*CRX) 7.5-325 MG TABLET 1 TAB PO (03:37)
[2025-09-27 04:51] LABS: Hematocrit 36.9 % (42.0-52.0); Hemoglobin 11.6 g/dL (14.0-18.0); Mean Corpuscular HGB Conc 31.4 g/dl (32-36); Mean Corpuscular Hemoglobin 29.4 pg (26-34); Mean Corpuscular Volume 93.4 fl (80-100); Platelet Count Result 155 k/mm3 (150-375); Red Blood Count 3.95 M/mm3 (4.6-6.20); White Blood Count 8.7 K/mm3 (4.5-10.0)
[2025-09-27 05:00] LABS: INR 2.3; Prothrombin Time 24.6 Seconds (11.1-14.7)
[2025-09-27 05:13] LABS: Alanine Aminotransferase 8 U/L (6-50); Albumin Level 3.1 g/dL (3.5-5.1); Alkaline Phosphatase 68 U/L (38-126); Anion Gap 5 mmol/L (4-12); Aspartate Amino Transferase 17 U/L (17-59); Bilirubin,Total 1.4 mg/dL (0.2-1.3); Blood Urea Nitrogen 21 mg/dL (9-20); Calcium 8.0 mg/dL (8.4-10.2); Carbon Dioxide 27 mmol/L (22-30); Chloride 104 mmol/L (98-107); Estimated CRCL calculation 74 ml/min; Estimated Glomerular Filt Rate > 60; Glucose 103 mg/dL (65-110); Potassium 4.0 mmol/L (3.4-5.0); Sodium 136 mmol/L (137-145); Total Protein 5.7 g/dL (6.3-8.2)
--- NOTE | 2025-09-27 07:11 | P.PNIM_ITS ---
Progress Note: A&P Assessment and Plan (1) Fall: Code(s): W19.XXXA - Unspecified fall, initial encounter Status: Acute Assessment and Plan: Mechanical ground level fall after tripping over his foot onto his left side, denies LOC or head strike. Denies dizziness or lightheadedness prior to fall. On chronic anticoagulation. - Chest XR: Early left lower lobe pneumonia Afebrile with downtrending WBC despite no antibiotic intervention and asymptomatic, leukocytosis likely reactive to acute fracture. - Shoulder XR: Impacted nondisplaced fracture of the humeral neck. - Shoulder CT: Comminuted fracture of the proximal left humerus - Head CT: no acute intracranial findings - See plan below Endorsing low back pain that is chronic. Denies any associated tingling/numbness to the lower extremities different from baseline. Lidocaine patch ordered. (2) Closed left humeral fracture: Code(s): S42.302A - Unspecified fracture of shaft of humerus, left arm, initial encounter for closed fracture Status: Acute Assessment and Plan: Shoulder XR: Impacted nondisplaced fracture of the humeral neck. Shoulder CT: Comminuted fracture of the proximal left humerus - SCDs/TEDs, warfarin - analgesic: Tylenol 650 mg q4prn, [place] 5-325 mg q4prn, [place] 7.5-325 mg q4prn, and Dilaudid 0.5 mg IV q4prn well controlled, has been off of IV medications since 09/23 started on norco 7.5-325 mg q4prn for higher breakthrough pain during therapy - bowel regimen: Metamucil and senna continues to have constipation, denies n/v or abd pain, passing flatus. KUB ordered to further assess. - PT/OT ordered, follow weight restrictions per ortho recommendations Recommending Acute Rehab, patient agreeable. Care coordination working on placement. - Ortho consulted, appreciate recommendations Use the Left Upper extremity as he tolerates (ie for balance and ambulation and for transfers) Recommend rehab evaluation, recommend walker with left arm platform while at rehab Follow up with my office 1 week from time of discharge. Continue pain regimen as above. Working well with therapy. Awaiting placement for SNF. (3) Essential (primary) hypertension: Code(s): I10 - Essential (primary) hypertension Status: Acute Assessment and Plan: Chronic, continue home medications - irbesartan 75 mg daily - blood pressures reviewed and stable, continue to monitor (4) Unspecified atrial fibrillation: Qualifiers: Atrial fibrillation type: paroxysmal Qualified Code(s): I48.0 - Paroxysmal atrial fibrillation Code(s): I48.91 - Unspecified atrial fibrillation Status: Chronic Assessment and Plan: Chronic, currently in sinus rhythm Continue warfarin as previously prescribed, INR currently therapeutic Continue sotalol 120 mg BID (5) 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 (6) Seizure disorder: Code(s): G40.909 - Epilepsy, unspecified, not intractable, without status epilepticus Status: Acute Assessment and Plan: Continue keppra 500 mg BID Time Spent With Patient Time with patient: 25 - 35 minutes Subjective Date/time seen: 09/27/25 07:11 Interval history: 75 year old male with past medical history of stroke with left sided deficits, dvt on chronic anticoagulation, seizure, htn, hld, paroxysmal afib, and mdd presents to the hospital following a ground level mechanical fall onto his left side. Patient is pleasant sitting up comfortably in bed. He states that he still has not had but notes that he has no nausea/ vomiting or abdominal pain and still passing flatus and tolerating a diet. he is endorsing low back pain that he states is chronic. Denies any associated tingling /numbness that differs from baseline. He has no other complaints denying chest pain, shortness a breath, palpitations . He notes that his left upper extremity pain is well controlled with current regimen. Review of Systems Review of Systems: All systems reviewed & are unremarkable except as noted in HPI and below Exam Narrative: AF HR 74 RR 16 Spo2 92 BP 146/80 General: male in no acute respiratory distress who is nontoxic appearing, sitting up in bed. HEENT: Normocephalic. Atraumatic. Extraocular movement intact. Sclera clear and anicteric.No facial asymmetry. Chest: Lungs are clear to auscultation bilaterally. Speaking full sentences. CV: Heart was regular rate and rhythm. Abd: Abdomen was soft. Nontender. Nondistended. Positive bowel sounds. Ext: No clubbing, cyanosis, or edema. Left arm in a sling with sensation intact to the hand and able to move fingers. Chronic left sided weakness to UE/LE from prior CVA. Sensation intact. DP pulses bilaterally. Neuro: Patient is alert. Speech is clear. Skin: bruising to the left upper arm and lateral chest Objective Data Vital Signs Vital Signs: Vital Signs - 24 hr 09/26/25 08:00 09/26/25 09:52 09/26/25 09:55 Temperature Pulse Rate 66 66 Respiratory Rate Blood Pressure Pulse Oximetry Oxygen Delivery Room Air 09/26/25 11:22 09/26/25 14:00 09/26/25 20:00 Temperature 97.2 F L Pulse Rate 78 84 Respiratory Rate 16 Blood Pressure 118/92 H 135/83 Pulse Oximetry 97 Oxygen Delivery Room Air 09/26/25 20:03 09/26/25 20:34 09/26/25 21:00 Temperature 98.5 F Pulse Rate 68 64 64 Respiratory Rate 18 Blood Pressure 122/72 Pulse Oximetry 95 Oxygen Delivery 09/27/25 03:52 Temperature 98.2 F Pulse Rate 74 Respiratory Rate 20 Blood Pressure 129/81 Pulse Oximetry 96 Oxygen Delivery Intake/Output Intake/Output: Intake & Output 09/24/25 09/25/25 09/26/25 09/27/25 23:59 22:59 23:59 23:59 Intake Total 1495 970 970 290 Output Total 205 500 700 400 Balance 1290 470 270 -110 Meds/Results Medications: Active Medications Generic Name Dose Route Start Last Admin Trade Name Freq PRN Reason Stop Dose Admin Acetaminophen 650 mg 09/23/25 17:19 09/24/25 11:02 Acetaminophen 325 Mg Tablet PO 650 mg Q4H PRN Administration Mild Pain (1-3) or Fever Hydrocodone Bitart/Acetaminophen 1 tab 09/23/25 23:16 09/26/25 19:02 Hydrocodone/Acetaminophen (*Crx) 5-325 Mg Tablet PO 1 tab Q4H PRN Administration Pain Rated 4-6 Hydrocodone Bitart/Acetaminophen 1 tab 09/26/25 11:14 09/27/25 03:37 Hydrocodone/Acetaminophen (*Crx) 7.5-325 Mg Tablet PO 1 tab Q4H PRN Administration Pain Rated 7-10 Duloxetine HCl 60 mg 09/24/25 09:00 09/26/25 09:48 Duloxetine Hcl 60 Mg Capsule.Dr PO 60 mg DAILY FAUSTO Administration Dutasteride 0.5 mg 09/24/25 21:00 09/26/25 20:34 Dutasteride 0.5 Mg Capsule PO 0.5 mg QHS FAUSTO Administration Hydromorphone HCl 0.5 mg 09/23/25 17:19 09/23/25 21:31 Hydromorphone Hcl Inj (*Crx) 1 Mg/Ml Syr IV PUSH 0.5 mg Q4H PRN Administration Pain Rated 7-10 Ipratropium [place] 2 spray 09/24/25 09:00 09/26/25 20:37 Ipratropium Nasal [place] 0.03% 15 Ml Bottle NASAL 2 spray Q12HR FAUSTO Administration Irbesartan 75 mg 09/23/25 23:15 09/26/25 09:50 Irbesartan 75 Mg Tablet BY MOUTH 75 mg DAILY FAUSTO Administration Levetiracetam 500 mg 09/23/25 23:15 09/26/25 20:36 Levetiracetam 500 Mg Tablet PO 500 mg Q12HR FAUSTO Administration Ondansetron HCl 4 mg 09/23/25 17:19 09/23/25 21:30 Ondansetron Inj 4 Mg/2 Ml Vial IV PUSH 4 mg Q4H PRN Administration Nausea Pantoprazole Sodium 40 mg 09/24/25 09:00 09/26/25 09:52 Pantoprazole 40 Mg Tablet PO 40 mg QAM FAUSTO Administration Psyllium Hydrophilic Mucilloid 1 packet 09/24/25 09:00 09/26/25 09:58 Psyllium Powder Packet BY MOUTH Not Given DAILY FAUSTO Senna/Docusate Sodium 1 tab 09/25/25 21:00 09/26/25 20:34 Senna/Docusate Sodium Tablet PO 1 tab HS FAUSTO Administration Sotalol HCl 40 mg 09/23/25 23:25 09/26/25 20:34 Sotalol Hcl 40 Mg Tablet PO 40 mg Q12HR FAUSTO Administration Sotalol HCl 80 mg 09/23/25 23:30 09/26/25 21:00 Sotalol Hcl 80 Mg Tablet PO 80 mg Q12HR [facility] Administration Tamsulosin HCl 0.4 mg 09/23/25 23:20 09/26/25 20:36 Tamsulosin Hcl 0.4 Mg Capsule PO 0.4 mg QHS FAUSTO Administration Warfarin Sodium 5 mg 09/24/25 17:00 09/26/25 16:34 Warfarin (*Pbkc) 5 Mg Tablet PO 5 mg [email or web address]@1700 [facility] Administration Warfarin Sodium 2.5 mg 09/27/25 17:00 Warfarin (*Pbkc) 2.5 Mg Tablet PO TuTh@1700 [facility] Radiology Results: ITS Impressions Shoulder X-Ray 09/23/25 13:31 Impression: Fracture detailed above Chest X-Ray 09/23/25 15:47 Impression: Early left lower lobe pneumonia Shoulder CT 09/23/25 19:01 IMPRESSION: 1. Computed 1 part fracture of the proximal left humerus. Head CT 09/24/25 10:41 IMPRESSION: 1. No acute intracranial findings. Labs Labs: Laboratory Results - last 24 hr 09/27/25 04:32 WBC 8.7 RBC 3.95 L Hgb 11.6 L Hct 36.9 L MCV 93.4 MCH 29.4 MCHC 31.4 L RDW 14.8 H Plt Count 155 MPV 9.3 PT 24.6 H INR 2.3 Sodium 136 L Potassium 4.0 Chloride 104 Carbon Dioxide 27 Anion Gap 5 BUN 21 H Creatinine 0.95 Estim Creat Clear Calc 74 Estimated GFR > 60 Glucose 103 Calcium 8.0 L Total Bilirubin 1.4 H AST 17 ALT 8 Alkaline Phosphatase 68 Total Protein 5.7 L Albumin 3.1 L Quality VTE Prophylaxis VTE prophylaxis: pharmacologic ordered (warfarin )
[2025-09-27] MEDS: DULoxetine HCL 60 MG CAPSULE.DR PO (08:07)
[2025-09-27] MEDS: IRBESARTAN 75 MG TABLET BY MOUTH (08:07)
[2025-09-27] MEDS: SOTALOL HCL 80 MG TABLET PO ×2 (08:07→20:10)
[2025-09-27] MEDS: PANTOPRAZOLE 40 MG TABLET PO (08:07)
[2025-09-27] MEDS: HYDROcodone/acetaminophen (*CRX) 5-325 MG TABLET 1 TAB PO ×2 (08:10→23:04)
[2025-09-27] MEDS: LIDOCAINE 5% PATCH 1 PATCH TRANSDERM (16:31)
[2025-09-27] MEDS: WARFARIN (*PBKC) 2.5 MG TABLET PO (18:36)
[2025-09-27] MEDS: TAMSULOSIN HCL 0.4 MG CAPSULE PO (20:10)
[2025-09-27] MEDS: SENNA/DOCUSATE SODIUM TABLET 1 TAB PO (20:10)
[2025-09-27] MEDS: DUTASTERIDE 0.5 MG CAPSULE PO (20:11)
[2025-09-27] MEDS: IPRATROPIUM NASAL SPRAY 0.03% 15 ML BOTTLE 2 SPRAY NASAL (20:15)
[2025-09-28] VITALS (7 sets, daily range): BP systolic 127–138; BP diastolic 72–83; PULSE 73–87; RESP 16–18; TEMP 36.4–37.2; O2SAT 97
[2025-09-28 05:24] LABS: Hematocrit 35.3 % (42.0-52.0); Hemoglobin 11.2 g/dL (14.0-18.0); Mean Corpuscular HGB Conc 31.7 g/dl (32-36); Mean Corpuscular Hemoglobin 29.3 pg (26-34); Mean Corpuscular Volume 92.4 fl (80-100); Platelet Count Result 163 k/mm3 (150-375); Red Blood Count 3.82 M/mm3 (4.6-6.20); White Blood Count 7.4 K/mm3 (4.5-10.0)
[2025-09-28 05:33] LABS: Alanine Aminotransferase 9 U/L (6-50); Albumin Level 2.8 g/dL (3.5-5.1); Alkaline Phosphatase 62 U/L (38-126); Anion Gap 4 mmol/L (4-12); Aspartate Amino Transferase 17 U/L (17-59); Bilirubin,Total 1.4 mg/dL (0.2-1.3); Blood Urea Nitrogen 17 mg/dL (9-20); Calcium 8.1 mg/dL (8.4-10.2); Carbon Dioxide 25 mmol/L (22-30); Chloride 106 mmol/L (98-107); Estimated CRCL calculation 72 ml/min; Estimated Glomerular Filt Rate > 60; Glucose 109 mg/dL (65-110); Potassium 4.2 mmol/L (3.4-5.0); Sodium 135 mmol/L (137-145); Total Protein 5.3 g/dL (6.3-8.2)
[2025-09-28 05:34] LABS: INR 2.7; Prothrombin Time 27.8 Seconds (11.1-14.7)
[2025-09-28] MEDS: DULoxetine HCL 60 MG CAPSULE.DR PO (08:51)
[2025-09-28] MEDS: HYDROcodone/acetaminophen (*CRX) 5-325 MG TABLET 1 TAB PO ×2 (08:51→19:00)
[2025-09-28] MEDS: PANTOPRAZOLE 40 MG TABLET PO (08:51)
[2025-09-28] MEDS: SOTALOL HCL 80 MG TABLET PO ×2 (08:51→20:49)
[2025-09-28] MEDS: IRBESARTAN 75 MG TABLET BY MOUTH (08:51)
[2025-09-28] MEDS: IPRATROPIUM NASAL SPRAY 0.03% 15 ML BOTTLE 2 SPRAY NASAL ×2 (08:53→20:51)
--- NOTE | 2025-09-28 15:06 | P.PNIM_ITS ---
Progress Note: A&P Assessment and Plan (1) Fall: Code(s): W19.XXXA - Unspecified fall, initial encounter Status: Acute Assessment and Plan: Mechanical ground level fall after tripping over his foot onto his left side, denies LOC or head strike. Denies dizziness or lightheadedness prior to fall. On chronic anticoagulation. - Chest XR: Early left lower lobe pneumonia Afebrile with downtrending WBC despite no antibiotic intervention and asymptomatic, leukocytosis likely reactive to acute fracture. - Shoulder XR: Impacted nondisplaced fracture of the humeral neck. - Shoulder CT: Comminuted fracture of the proximal left humerus - Head CT: no acute intracranial findings - See plan below Endorsed low back pain that is chronic. Denies any associated tingling/numbness to the lower extremities different from baseline. Lidocaine patch ordered. (2) Closed left humeral fracture: Code(s): S42.302A - Unspecified fracture of shaft of humerus, left arm, initial encounter for closed fracture Status: Acute Assessment and Plan: Shoulder XR: Impacted nondisplaced fracture of the humeral neck. Shoulder CT: Comminuted fracture of the proximal left humerus - SCDs/TEDs, warfarin - analgesic: Tylenol 650 mg q4prn, [place] 5-325 mg q4prn, [place] 7.5-325 mg q4prn, and Dilaudid 0.5 mg IV q4prn well controlled, has been off of IV medications since 09/23 started on norco 7.5-325 mg q4prn for higher breakthrough pain during therapy - bowel regimen: Metamucil and senna - PT/OT ordered, follow weight restrictions per ortho recommendations Recommending Acute Rehab, patient agreeable. Care coordination working on placement. - Ortho consulted, appreciate recommendations Use the Left Upper extremity as he tolerates (ie for balance and ambulation and for transfers) Recommend rehab evaluation, recommend walker with left arm platform while at rehab Follow up with my office 1 week from time of discharge. Continue pain regimen as above. Working well with therapy. Awaiting placement for SNF. (3) Essential (primary) hypertension: Code(s): I10 - Essential (primary) hypertension Status: Acute Assessment and Plan: Chronic, continue home medications - irbesartan 75 mg daily - blood pressures reviewed and stable, continue to monitor (4) Unspecified atrial fibrillation: Qualifiers: Atrial fibrillation type: paroxysmal Qualified Code(s): I48.0 - Paroxysmal atrial fibrillation Code(s): I48.91 - Unspecified atrial fibrillation Status: Chronic Assessment and Plan: Chronic, currently in sinus rhythm Continue warfarin as previously prescribed, INR currently therapeutic Continue sotalol 120 mg BID (5) 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 According to his Debbie, the patient was bending down on the floor trying to plug something into the wall. He stated that he was down on 1 knee and stood up and lost his balance. He stated that he fell on his left side. He stated that he was in severe pain to the left arm. He denies hitting his head and he has chronic use of Coumadin. According to his Debbie, he is mentally at his baseline. The left hemiple demetrio is reportedly from his previous stroke. CT of left shoulder computed 1 part fracture of the proximal left humerus. Chest x-ray was read as early left lower lobe pneumonia. Shoulder x-ray was read as impacted nondisplaced fracture of the humeral neck. Severe degenerative changes. Soft tissue swelling. The patient was placed in a sling to the left arm and ortho has been consulted. The patient was given Dilaudid in the emergency room as well as IV fluids. His white count was noted to be 14.9. Sodium was slightly low at 136. Blood sugar 156. Admitted on 09/23/2025. Full code. Continue Coumadin. Fall precaution, ambulate with assistance. Time Spent With Patient Time with patient: 25 - 35 minutes Subjective Date/time seen: 09/28/25 15:06 Interval history: No major acute overnight events. Patient denies any complaints including shortness of breath, chest pain, pain. Review of Systems Review of Systems: All systems reviewed & are unremarkable except as noted in HPI and below (Subjective) Exam Const: General: comfortable and no acute distress Eyes: Pupils: Equal, round and reactive pupils present Neck: Neck: supple Resp: Effort & Inspection: normal respiratory effort Auscultation: clear to auscultation bilaterally Cardio: Rate: regular rate Rhythm: regular rhythm GI: Inspection: non-distended GI Palp: Yes Soft to palpation Objective Data Vital Signs Vital Signs: Vital Signs - 24 hr 09/27/25 20:00 09/27/25 20:10 09/27/25 20:53 Temperature 98.5 F Pulse Rate 82 82 Respiratory Rate 18 Blood Pressure 142/85 H Pulse Oximetry 100 99 Oxygen Delivery Room Air 09/28/25 04:02 09/28/25 08:50 09/28/25 08:50 Temperature 97.6 F Pulse Rate 74 74 Respiratory Rate 18 Blood Pressure 127/79 127/83 Pulse Oximetry 97 97 Oxygen Delivery Room Air 09/28/25 08:51 09/28/25 08:51 09/28/25 13:43 Temperature 99.0 F Pulse Rate 74 74 73 Respiratory Rate 16 Blood Pressure 132/72 Pulse Oximetry 97 Oxygen Delivery Intake/Output Intake/Output: Intake & Output 09/25/25 09/26/25 09/27/25 09/28/25 22:59 23:59 23:59 23:59 Intake Total 970 970 850 540 Output Total 538 361 4575 600 Balance 470 270 -350 -60 Meds/Results Medications: Active Medications Generic Name Dose Route Start Last Admin Trade Name Freq PRN Reason Stop Dose Admin Acetaminophen 650 mg 09/23/25 17:19 09/24/25 11:02 Acetaminophen 325 Mg Tablet PO 650 mg Q4H PRN Administration Mild Pain (1-3) or Fever Hydrocodone Bitart/Acetaminophen 1 tab 09/23/25 23:16 09/28/25 08:51 Hydrocodone/Acetaminophen (*Crx) 5-325 Mg Tablet PO 1 tab Q4H PRN Administration Pain Rated 4-6 Hydrocodone Bitart/Acetaminophen 1 tab 09/26/25 11:14 09/27/25 03:37 Hydrocodone/Acetaminophen (*Crx) 7.5-325 Mg Tablet PO 1 tab Q4H PRN Administration Pain Rated 7-10 Duloxetine HCl 60 mg 09/24/25 09:00 09/28/25 08:51 Duloxetine Hcl 60 Mg Capsule.Dr PO 60 mg DAILY FAUSTO Administration Dutasteride 0.5 mg 09/24/25 21:00 09/27/25 20:11 Dutasteride 0.5 Mg Capsule PO 0.5 mg QHS FAUSTO Administration Hydromorphone HCl 0.5 mg 09/23/25 17:19 09/23/25 21:31 Hydromorphone Hcl Inj (*Crx) 1 Mg/Ml Syr IV PUSH 0.5 mg Q4H PRN Administration Pain Rated 7-10 Ipratropium [place] 2 spray 09/24/25 09:00 09/28/25 08:53 Ipratropium Nasal [place] 0.03% 15 Ml Bottle NASAL 2 spray Q12HR FAUSTO Administration Irbesartan 75 mg 09/23/25 23:15 09/28/25 08:51 Irbesartan 75 Mg Tablet BY MOUTH 75 mg DAILY FAUSTO Administration Levetiracetam 500 mg 09/23/25 23:15 09/28/25 08:51 Levetiracetam 500 Mg Tablet PO 500 mg Q12HR FAUSTO Administration Lidocaine 1 patch 09/27/25 12:00 09/28/25 08:52 Lidocaine 5% Patch TRANSDERM Not Given DAILY FAUSTO Ondansetron HCl 4 mg 09/23/25 17:19 09/23/25 21:30 Ondansetron Inj 4 Mg/2 Ml Vial IV PUSH 4 mg Q4H PRN Administration Nausea Pantoprazole Sodium 40 mg 09/24/25 09:00 09/28/25 08:51 Pantoprazole 40 Mg Tablet PO 40 mg QAM [facility] Administration Psyllium Hydrophilic Mucilloid 1 packet 09/24/25 09:00 09/28/25 08:52 Psyllium Powder Packet BY MOUTH Not Given DAILY [facility] Senna/Docusate Sodium 1 tab 09/25/25 21:00 09/27/25 20:10 Senna/Docusate Sodium Tablet PO 1 tab HS FAUSTO Administration Sotalol HCl 40 mg 09/23/25 23:25 09/28/25 08:51 Sotalol Hcl 40 Mg Tablet PO 40 mg Q12HR FAUSTO Administration Sotalol HCl 80 mg 09/23/25 23:30 09/28/25 08:51 Sotalol Hcl 80 Mg Tablet PO 80 mg Q12HR FAUSTO Administration Tamsulosin HCl 0.4 mg 09/23/25 23:20 09/27/25 20:10 Tamsulosin Hcl 0.4 Mg Capsule PO 0.4 mg QHS FAUSTO Administration Warfarin Sodium 5 mg 09/24/25 17:00 09/26/25 16:34 Warfarin (*Pbkc) 5 Mg Tablet PO 5 mg [email or web address]@1700 FAUSTO Administration Warfarin Sodium 2.5 mg 09/27/25 17:00 09/27/25 18:36 Warfarin (*Pbkc) 2.5 Mg Tablet PO 2.5 mg TuTh@1700 [facility] Administration Radiology Results: ITS Impressions Shoulder X-Ray 09/23/25 13:31 Impression: Fracture detailed above Chest X-Ray 09/23/25 15:47 Impression: Early left lower lobe pneumonia Shoulder CT 09/23/25 19:01 IMPRESSION: 1. Computed 1 part fracture of the proximal left humerus. Head CT 09/24/25 10:41 IMPRESSION: 1. No acute intracranial findings. Abdomen X-Ray 09/27/25 14:17 Impression: 1. No acute abnormality. Labs Labs: Laboratory Results - last 24 hr 09/28/25 05:09 WBC 7.4 RBC 3.82 L Hgb 11.2 L Hct 35.3 L MCV 92.4 MCH 29.3 MCHC 31.7 L RDW 14.8 H Plt Count 163 MPV 9.3 PT 27.8 H INR 2.7 Sodium 135 L Potassium 4.2 Chloride 106 Carbon Dioxide 25 Anion Gap 4 BUN 17 Creatinine 0.98 Estim Creat Clear Calc 72 Estimated GFR > 60 Glucose 109 Calcium 8.1 L Total Bilirubin 1.4 H AST 17 ALT 9 Alkaline Phosphatase 62 Total Protein 5.3 L Albumin 2.8 L
[2025-09-28] MEDS: WARFARIN (*PBKC) 5 MG TABLET PO (17:27)
[2025-09-28] MEDS: TAMSULOSIN HCL 0.4 MG CAPSULE PO (20:49)
[2025-09-28] MEDS: SENNA/DOCUSATE SODIUM TABLET 1 TAB PO (20:49)
[2025-09-28] MEDS: DUTASTERIDE 0.5 MG CAPSULE PO (20:50)
[2025-09-29 04:56] VITALS: BP 134/80; PULSE 74; RESP 18; TEMP 36.3; O2SAT 99
[2025-09-29 05:25] LABS: Hematocrit 35.7 % (42.0-52.0); Hemoglobin 11.4 g/dL (14.0-18.0); Mean Corpuscular HGB Conc 31.9 g/dl (32-36); Mean Corpuscular Hemoglobin 29.8 pg (26-34); Mean Corpuscular Volume 93.2 fl (80-100); Platelet Count Result 179 k/mm3 (150-375); Red Blood Count 3.83 M/mm3 (4.6-6.20); White Blood Count 8.1 K/mm3 (4.5-10.0)
[2025-09-29 05:41] LABS: INR 2.0; Prothrombin Time 22.8 Seconds (11.1-14.7)
[2025-09-29 05:51] LABS: Alanine Aminotransferase 11 U/L (6-50); Albumin Level 3.0 g/dL (3.5-5.1); Alkaline Phosphatase 59 U/L (38-126); Anion Gap 1 mmol/L (4-12); Aspartate Amino Transferase 23 U/L (17-59); Bilirubin,Total 1.5 mg/dL (0.2-1.3); Blood Urea Nitrogen 21 mg/dL (9-20); Calcium 8.2 mg/dL (8.4-10.2); Carbon Dioxide 28 mmol/L (22-30); Chloride 106 mmol/L (98-107); Estimated CRCL calculation 70 ml/min; Estimated Glomerular Filt Rate > 60; Glucose 103 mg/dL (65-110); Magnesium 2.1 mg/dL (1.6-2.3); Potassium 4.7 mmol/L (3.4-5.0); Sodium 135 mmol/L (137-145); Total Protein 5.5 g/dL (6.3-8.2)
[2025-09-29] MEDS: IRBESARTAN 75 MG TABLET BY MOUTH (08:29)
[2025-09-29] MEDS: PANTOPRAZOLE 40 MG TABLET PO (08:29)
[2025-09-29 08:30] VITALS: PULSE 78
[2025-09-29] MEDS: DULoxetine HCL 60 MG CAPSULE.DR PO (08:30)
[2025-09-29] MEDS: SOTALOL HCL 80 MG TABLET PO ×2 (08:30→20:16)
[2025-09-29] MEDS: HYDROcodone/acetaminophen (*CRX) 5-325 MG TABLET 1 TAB PO ×3 (08:30→18:59)
[2025-09-29] MEDS: IPRATROPIUM NASAL SPRAY 0.03% 15 ML BOTTLE 2 SPRAY NASAL ×2 (08:32→20:15)
[2025-09-29 13:44] VITALS: BP 127/75; PULSE 67; RESP 18; TEMP 36.2; O2SAT 100
--- NOTE | 2025-09-29 16:28 | PM.IMPN ---
Progress Note: A&P Assessment and Plan (1) Fall: Code(s): W19.XXXA - Unspecified fall, initial encounter Status: Acute Assessment and Plan: Mechanical ground level fall after tripping over his foot onto his left side, denies LOC or head strike. Denies dizziness or lightheadedness prior to fall. On chronic anticoagulation. - Chest XR: Early left lower lobe pneumonia Afebrile with downtrending WBC despite no antibiotic intervention and asymptomatic, leukocytosis likely reactive to acute fracture. - Shoulder XR: Impacted nondisplaced fracture of the humeral neck. - Shoulder CT: Comminuted fracture of the proximal left humerus - Head CT: no acute intracranial findings - See plan below Endorsed low back pain that is chronic. Denies any associated tingling/numbness to the lower extremities different from baseline. Lidocaine patch ordered. (2) Closed left humeral fracture: Code(s): S42.302A - Unspecified fracture of shaft of humerus, left arm, initial encounter for closed fracture Status: Acute Assessment and Plan: Shoulder XR: Impacted nondisplaced fracture of the humeral neck. Shoulder CT: Comminuted fracture of the proximal left humerus - SCDs/TEDs, warfarin - analgesic: Tylenol 650 mg q4prn, [place] 5-325 mg q4prn, [place] 7.5-325 mg q4prn, and Dilaudid 0.5 mg IV q4prn well controlled, has been off of IV medications since 09/23 started on norco 7.5-325 mg q4prn for higher breakthrough pain during therapy - bowel regimen: Metamucil and senna - PT/OT ordered, follow weight restrictions per ortho recommendations Recommending Acute Rehab, patient agreeable. Care coordination working on placement. - Ortho consulted, appreciate recommendations Use the Left Upper extremity as he tolerates (ie for balance and ambulation and for transfers) Recommend rehab evaluation, recommend walker with left arm platform while at rehab Follow up with my office 1 week from time of discharge. Continue pain regimen as above. Working well with therapy. Awaiting placement for SNF. (3) Essential (primary) hypertension: Code(s): I10 - Essential (primary) hypertension Status: Acute Assessment and Plan: Chronic, continue home medications - irbesartan 75 mg daily - blood pressures reviewed and stable, continue to monitor (4) Unspecified atrial fibrillation: Qualifiers: Atrial fibrillation type: paroxysmal Qualified Code(s): I48.0 - Paroxysmal atrial fibrillation Code(s): I48.91 - Unspecified atrial fibrillation Status: Chronic Assessment and Plan: Chronic, currently in sinus rhythm Continue warfarin as previously prescribed, INR currently therapeutic Continue sotalol 120 mg BID (5) 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 According to his Debbie, the patient was bending down on the floor trying to plug something into the wall. He stated that he was down on 1 knee and stood up and lost his balance. He stated that he fell on his left side. He stated that he was in severe pain to the left arm. He denies hitting his head and he has chronic use of Coumadin. According to his Debbie, he is mentally at his baseline. The left hemiplegia is reportedly from his previous stroke. CT of left shoulder computed 1 part fracture of the proximal left humerus. Chest x-ray was read as early left lower lobe pneumonia. Shoulder x-ray was read as impacted nondisplaced fracture of the humeral neck. Severe degenerative changes. Soft tissue swelling. The patient was placed in a sling to the left arm and ortho has been consulted. The patient was given Dilaudid in the emergency room as well as IV fluids. His white count was noted to be 14.9. Sodium was slightly low at 136. Blood sugar 156. Admitted on 09/23/2025. Full code. Continue Coumadin. Fall precaution, ambulate with assistance. Time Spent With Patient Time with patient: 25 - 35 minutes Subjective Date/time seen: 09/29/25 16:28 Interval history: No major acute overnight events. Patient denies any complaints including shortness of breath, chest pain, pain. Believes his bruising on the left arm is improving. Review of Systems Review of Systems: All systems reviewed & are unremarkable except as noted in HPI and below (Subjective) Exam Const: General: comfortable and no acute distress Eyes: Pupils: Equal, round and reactive pupils present Neck: Neck: supple Resp: Effort & Inspection: normal respiratory effort Auscultation: clear to auscultation bilaterally Cardio: Rate: regular rate Rhythm: regular rhythm GI: Inspection: non-distended GI Palp: Yes Soft to palpation Extrem: General: no edema Objective Data Vital Signs Vital Signs: Vital Signs - 24 hr 09/28/25 20:01 09/28/25 20:48 09/28/25 20:49 Temperature 98 F Pulse Rate 87 87 87 Respiratory Rate 16 Blood Pressure 138/74 Pulse Oximetry 97 Oxygen Delivery 09/29/25 04:56 09/29/25 08:30 09/29/25 08:30 Temperature 97.4 F L Pulse Rate 74 78 78 Respiratory Rate 18 Blood Pressure 134/80 Pulse Oximetry 99 Oxygen Delivery 09/29/25 08:30 09/29/25 13:44 Temperature 97.1 F L Pulse Rate 67 Respiratory Rate 18 Blood Pressure 127/75 Pulse Oximetry 100 Oxygen Delivery Room Air Intake/Output Intake/Output: Intake & Output 09/26/25 09/27/25 09/28/25 09/29/25 23:59 23:59 23:59 23:59 Intake Total 593 767 3642 530 Output Total 700 1200 1300 300 Balance 270 -350 480 230 Meds/Results Medications: Active Medications Generic Name Dose Route Start Last Admin Trade Name Freq PRN Reason Stop Dose Admin Acetaminophen 650 mg 09/23/25 17:19 09/24/25 11:02 Acetaminophen 325 Mg Tablet PO 650 mg Q4H PRN Administration Mild Pain (1-3) or Fever Hydrocodone Bitart/Acetaminophen 1 tab 09/23/25 23:16 09/29/25 15:26 Hydrocodone/Acetaminophen (*Crx) 5-325 Mg Tablet PO 1 tab Q4H PRN Administration Pain Rated 4-6 Hydrocodone Bitart/Acetaminophen 1 tab 09/26/25 11:14 09/27/25 03:37 Hydrocodone/Acetaminophen (*Crx) 7.5-325 Mg Tablet PO 1 tab Q4H PRN Administration Pain Rated 7-10 Duloxetine HCl 60 mg 09/24/25 09:00 09/29/25 08:30 Duloxetine Hcl 60 Mg Capsule.Dr PO 60 mg DAILY FAUSTO Administration Dutasteride 0.5 mg 09/24/25 21:00 09/28/25 20:50 Dutasteride 0.5 Mg Capsule PO 0.5 mg QHS FAUSTO Administration Hydromorphone HCl 0.5 mg 09/23/25 17:19 09/23/25 21:31 Hydromorphone Hcl Inj (*Crx) 1 Mg/Ml Syr IV PUSH 0.5 mg Q4H PRN Administration Pain Rated 7-10 Ipratropium [place] 2 spray 09/24/25 09:00 09/29/25 08:32 Ipratropium Nasal [place] 0.03% 15 Ml Bottle NASAL 2 spray Q12HR FAUSTO Administration Irbesartan 75 mg 09/23/25 23:15 09/29/25 08:29 Irbesartan 75 Mg Tablet BY MOUTH 75 mg DAILY FAUSTO Administration Levetiracetam 500 mg 09/23/25 23:15 09/29/25 08:30 Levetiracetam 500 Mg Tablet PO 500 mg Q12HR COUNT INCLUDES THE [facility] Administration Lidocaine 1 patch 09/27/25 12:00 09/29/25 08:32 Lidocaine 5% Patch TRANSDERM Not Given DAILY COUNT INCLUDES THE [facility] Ondansetron HCl 4 mg 09/23/25 17:19 09/23/25 21:30 Ondansetron Inj 4 Mg/2 Ml Vial IV PUSH 4 mg Q4H PRN Administration Nausea Pantoprazole Sodium 40 mg 09/24/25 09:00 09/29/25 08:29 Pantoprazole 40 Mg Tablet PO 40 mg QAM COUNT INCLUDES THE [facility] Administration Psyllium Hydrophilic Mucilloid 1 packet 09/24/25 09:00 09/29/25 08:32 Psyllium Powder Packet BY MOUTH Not Given DAILY COUNT INCLUDES THE [facility] Senna/Docusate Sodium 1 tab 09/25/25 21:00 09/28/25 20:49 Senna/Docusate Sodium Tablet PO 1 tab HS FAUSTO Administration Sotalol HCl 40 mg 09/23/25 23:25 09/29/25 08:30 Sotalol Hcl 40 Mg Tablet PO 40 mg Q12HR FAUSTO Administration Sotalol HCl 80 mg 09/23/25 23:30 09/29/25 08:30 Sotalol Hcl 80 Mg Tablet PO 80 mg Q12HR FAUSTO Administration Tamsulosin HCl 0.4 mg 09/23/25 23:20 09/28/25 20:49 Tamsulosin Hcl 0.4 Mg Capsule PO 0.4 mg QHS FAUSTO Administration Warfarin Sodium 5 mg 09/24/25 17:00 09/28/25 17:27 Warfarin (*Pbkc) 5 Mg Tablet PO 5 mg [email or web address] FAUSTO Administration Warfarin Sodium 2.5 mg 09/27/25 17:00 09/27/25 18:36 Warfarin (*Pbkc) 2.5 Mg Tablet PO 2.5 mg TuTh@1700 COUNT INCLUDES THE [facility] Administration Radiology Results: ITS Impressions Shoulder X-Ray 09/23/25 13:31 Impression: Fracture detailed above Chest X-Ray 09/23/25 15:47 Impression: Early left lower lobe pneumonia Shoulder CT 09/23/25 19:01 IMPRESSION: 1. Computed 1 part fracture of the proximal left humerus. Head CT 09/24/25 10:41 IMPRESSION: 1. No acute intracranial findings. Abdomen X-Ray 09/27/25 14:17 Impression: 1. No acute abnormality. Labs Labs: Laboratory Results - last 24 hr 09/29/25 05:02 WBC 8.1 RBC 3.83 L Hgb 11.4 L Hct 35.7 L MCV 93.2 MCH 29.8 MCHC 31.9 L RDW 15.1 H Plt Count 179 MPV 9.4 PT 22.8 H INR 2.0 Sodium 135 L Potassium 4.7 Chloride 106 Carbon Dioxide 28 Anion Gap 1 L BUN 21 H Creatinine 1.00 Estim Creat Clear Calc 70 Estimated GFR > 60 Glucose 103 Calcium 8.2 L Magnesium 2.1 Total Bilirubin 1.5 H AST 23 ALT 11 Alkaline Phosphatase 59 Total Protein 5.5 L Albumin 3.0 L
[2025-09-29] MEDS: WARFARIN (*PBKC) 2.5 MG TABLET PO (17:58)
[2025-09-29 20:09] VITALS: BP 137/78; PULSE 88; RESP 18; TEMP 36.8; O2SAT 98
[2025-09-29 20:16] VITALS: PULSE 88
[2025-09-29] MEDS: TAMSULOSIN HCL 0.4 MG CAPSULE PO (20:16)
[2025-09-29] MEDS: DUTASTERIDE 0.5 MG CAPSULE PO (20:16)
[2025-09-29 20:17] VITALS: PULSE 88
[2025-09-29] MEDS: SENNA/DOCUSATE SODIUM TABLET 1 TAB PO (20:17)
[2025-09-30] VITALS (7 sets, daily range): BP systolic 124–133; BP diastolic 71–84; PULSE 69–85; RESP 16–18; TEMP 36.4–36.9; O2SAT 95–99
[2025-09-30] MEDS: HYDROcodone/acetaminophen (*CRX) 5-325 MG TABLET 1 TAB PO ×2 (05:05→21:03)
[2025-09-30 05:42] LABS: INR 2.2; Prothrombin Time 24.4 Seconds (11.1-14.7)
[2025-09-30] MEDS: PANTOPRAZOLE 40 MG TABLET PO (08:05)
[2025-09-30] MEDS: DULoxetine HCL 60 MG CAPSULE.DR PO (08:05)
[2025-09-30] MEDS: SOTALOL HCL 80 MG TABLET PO ×2 (08:06→21:04)
[2025-09-30] MEDS: IRBESARTAN 75 MG TABLET BY MOUTH (08:06)
[2025-09-30] MEDS: IPRATROPIUM NASAL SPRAY 0.03% 15 ML BOTTLE 2 SPRAY NASAL ×2 (08:07→21:08)
--- NOTE | 2025-09-30 08:49 | P.DS_ITS ---
DS: Admitting Diagnosis Discharge Date 09/30/2025 Admitting Diagnosis Ground level fall DS: Discharge Diagnosis Discharge Diagnosis (1) Closed left humeral fracture: Code(s): S42.302A - Unspecified fracture of shaft of humerus, left arm, initial encounter for closed fracture Status: Acute DS: Summary Hospital Course Hospital Course: 75-year-old male with history of hemorrhagic stroke in 2012 with chronic left hemiplegia, BPH, anemia, depression, GERD, history of DVT, peripheral neuropathy, hypertension, atrial fibrillation. According to his Debbie, the patient was bending down on the floor trying to plug something into the wall. He stated that he was down on 1 knee and stood up and lost his balance. He stated that he fell on his left side. He stated that he was in severe pain to the left arm. He denies hitting his head and he has chronic use of Coumadin. According to his Debbie, he is mentally at his baseline. The left hemiplegia is reportedly from his previous stroke. CT of left shoulder computed 1 part fracture of the proximal left humerus. Chest x-ray was read as early left lower lobe pneumonia. Shoulder x-ray was read as impacted nondisplaced fracture of the humeral neck. Severe degenerative changes. Soft tissue swelling. The patient was placed in a sling to the left arm and ortho has been consulted. The patient was given Dilaudid in the emergency room as well as IV fluids. His white count was noted to be 14.9. Sodium was slightly low at 136. Blood sugar 156. Admitted on 09/23/2025. ----- Found to have impacted nondisplaced fracture of the humeral neck left side, comminuted fracture of proximal left humerus. Head CT no acute findings. Pain was well controlled. Patient seen by Orthopedic surgery, advised to use left upper extremity as tolerated, patient did well. Discharged in stable condition on 09/30/2025 to custodial for rehab. Follow-up with orthopedic surgery in the outpatient setting, history of AFib on warfarin. INR therapeutic. Continue warfarin. Time Spent with Patient Time attestation: Total time spent providing and/or coordinating discharge services: Exam Const: General: comfortable and no acute distress Eyes: Pupils: Equal, round and reactive pupils present Neck: Neck: supple Resp: Effort & Inspection: normal respiratory effort Auscultation: clear to auscultation bilaterally Cardio: Rate: regular rate Rhythm: regular rhythm GI: Inspection: non-distended GI Palp: Yes Soft to palpation Extrem: General: no edema DS: Data Data Completed and Pending Labs on day of discharge: Labs from last 24 hours 09/30/25 05:07 PT 24.4 H INR 2.2 Discharge Plan Discharge Attending physician on discharge: Deanna Vanegsa Consulting providers: Mitchell Lawson; Celina Yen Discharging Clinician: Deanna Vanegas Patient Disposition: SNF Activity: march shower Diet: as tolerated Discharge Instructions: Continue PT/OT evaluations and therapy. Follow-up with PCP or senior care clinician within 7 days. Wound care per protocol. Patient Instructions: Blood Thinners (GEN) Patient Language: Gabonese Stand Alone Forms: General Discharge Information Discharge Medications: Continued sotalol 120 mg tablet 120 mg PO Q12H warfarin 5 mg tablet 5 mg PO QHS Rx Instructions: TUES AND THURS 2.5MG. SUN, MON, WEDS, FRI, SAT 5MG warfarin 2.5 mg tablet 2.5 mg PO 2XW Rx Instructions: TUES AND THURS 2.5MG. SUN, MON, WEDS, FRI, SAT 5MG psyllium husk [Metamucil] 0.4 gram capsule 0.4 g PO BID tamsulosin [Flomax] 0.4 mg capsule 0.4 mg PO QHS ipratropium bromide 21 mcg (0.03 %) spray,non-aerosol 2 spray intranasal BID Rx Instructions: administer into each nostril. Aim back/up/out dutasteride [Avodart] 0.5 mg capsule 0.5 mg PO QHS levetiracetam [Keppra] 1,000 mg tablet 500 mg PO Q12H duloxetine 60 mg capsule,delayed release(DR/EC) 60 mg PO DAILY Qty: 90 1RF irbesartan 75 mg tablet See Rx Instructions .ROUTE .COMPLEX Qty: 90 1RF Dose Instruction: TAKE 1 TABLET BY MOUTH EVERY MORNING Rx Instructions: TAKE 1 TABLET BY MOUTH EVERY MORNING omeprazole 20 mg capsule,delayed release(DR/EC) See Rx Instructions .ROUTE .COMPLEX Qty: 90 1RF Dose Instruction: TAKE 1 CAPSULE BY MOUTH DAILY Rx Instructions: TAKE 1 CAPSULE BY MOUTH DAILY Date of admission: 09/24/25 15:53 Primary Care Provider: Jose Jacome Admitting Provider: Emile Muniz Attending physician on admission: Emile Muniz Condition: Stable Hospitalist MIPS Heart Failure (Exclusion) Patient has history of Heart Transplant or Left Ventricular Assistive Device?: No IF YES, STOP HERE Heart Failure (Qualifier) Patient has current or prior documentation of LVEF less than or equal to 40%, or mod/servere depressed LVSF?: No IF NO, STOP HERE
--- NOTE | 2025-09-30 10:30 | PCNWS ---
Weekly nutritional screen. Patient is tolerating current diet with adequate intake. No weight loss reported. No nutritional needs at this time.
[2025-09-30] MEDS: WARFARIN (*PBKC) 5 MG TABLET PO (17:47)
[2025-09-30] MEDS: SENNA/DOCUSATE SODIUM TABLET 1 TAB PO (21:04)
[2025-09-30] MEDS: TAMSULOSIN HCL 0.4 MG CAPSULE PO (21:04)
[2025-09-30] MEDS: DUTASTERIDE 0.5 MG CAPSULE PO (21:04)
[2025-10-01] VITALS (9 sets, daily range): BP systolic 116–123; BP diastolic 70–78; PULSE 73–89; RESP 16–18; TEMP 36.3–37; O2SAT 96–100
[2025-10-01 05:39] LABS: INR 1.9; Prothrombin Time 22.0 Seconds (11.1-14.7)
[2025-10-01] MEDS: SOTALOL HCL 80 MG TABLET PO ×2 (08:42→20:34)
[2025-10-01] MEDS: PANTOPRAZOLE 40 MG TABLET PO (08:42)
[2025-10-01] MEDS: DULoxetine HCL 60 MG CAPSULE.DR PO (08:43)
[2025-10-01] MEDS: IPRATROPIUM NASAL SPRAY 0.03% 15 ML BOTTLE 2 SPRAY NASAL ×2 (08:43→20:33)
[2025-10-01] MEDS: IRBESARTAN 75 MG TABLET BY MOUTH (08:43)
[2025-10-01] MEDS: PSYLLIUM POWDER PACKET 1 PACKET BY MOUTH (08:43)
[2025-10-01] MEDS: HYDROcodone/acetaminophen (*CRX) 5-325 MG TABLET 1 TAB PO ×3 (08:54→20:47)
--- NOTE | 2025-10-01 13:47 | P.PNIM_ITS ---
Progress Note: A&P Assessment and Plan (1) Fall: Code(s): W19.XXXA - Unspecified fall, initial encounter Status: Acute Assessment and Plan: Mechanical ground level fall after tripping over his foot onto his left side, denies LOC or head strike. Denies dizziness or lightheadedness prior to fall. On chronic anticoagulation. - Chest XR: Early left lower lobe pneumonia Afebrile with downtrending WBC despite no antibiotic intervention and asymptomatic, leukocytosis likely reactive to acute fracture. - Shoulder XR: Impacted nondisplaced fracture of the humeral neck. - Shoulder CT: Comminuted fracture of the proximal left humerus - Head CT: no acute intracranial findings - See plan below Endorsed low back pain that is chronic. Denies any associated tingling/numbness to the lower extremities different from baseline. Lidocaine patch ordered. (2) Closed left humeral fracture: Code(s): S42.302A - Unspecified fracture of shaft of humerus, left arm, initial encounter for closed fracture Status: Acute Assessment and Plan: Shoulder XR: Impacted nondisplaced fracture of the humeral neck. Shoulder CT: Comminuted fracture of the proximal left humerus - SCDs/TEDs, warfarin - analgesic: Tylenol 650 mg q4prn, [place] 5-325 mg q4prn, [place] 7.5-325 mg q4prn, and Dilaudid 0.5 mg IV q4prn well controlled, has been off of IV medications since 09/23 started on norco 7.5-325 mg q4prn for higher breakthrough pain during therapy - bowel regimen: Metamucil and senna - PT/OT ordered, follow weight restrictions per ortho recommendations Recommending Acute Rehab, patient agreeable. Care coordination working on placement. - Ortho consulted, appreciate recommendations Use the Left Upper extremity as he tolerates (ie for balance and ambulation and for transfers) Recommend rehab evaluation, recommend walker with left arm platform while at rehab Follow up with my office 1 week from time of discharge. Continue pain regimen as above. Working well with therapy. Awaiting placement for SNF. (3) Essential (primary) hypertension: Code(s): I10 - Essential (primary) hypertension Status: Acute Assessment and Plan: Chronic, continue home medications - irbesartan 75 mg daily - blood pressures reviewed and stable, continue to monitor (4) Unspecified atrial fibrillation: Qualifiers: Atrial fibrillation type: paroxysmal Qualified Code(s): I48.0 - Paroxysmal atrial fibrillation Code(s): I48.91 - Unspecified atrial fibrillation Status: Chronic Assessment and Plan: Chronic, currently in sinus rhythm Continue warfarin as previously prescribed, INR currently therapeutic Continue sotalol 120 mg BID (5) 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 According to his Debbie, the patient was bending down on the floor trying to plug something into the wall. He stated that he was down on 1 knee and stood up and lost his balance. He stated that he fell on his left side. He stated that he was in severe pain to the left arm. He denies hitting his head and he has chronic use of Coumadin. According to his Debbie, he is mentally at his baseline. The left hemiple demetrio is reportedly from his previous stroke. CT of left shoulder computed 1 part fracture of the proximal left humerus. Chest x-ray was read as early left lower lobe pneumonia. Shoulder x-ray was read as impacted nondisplaced fracture of the humeral neck. Severe degenerative changes. Soft tissue swelling. The patient was placed in a sling to the left arm and ortho has been consulted. The patient was given Dilaudid in the emergency room as well as IV fluids. His white count was noted to be 14.9. Sodium was slightly low at 136. Blood sugar 156. Admitted on 09/23/2025. Full code. Continue Coumadin. Fall precaution, ambulate with assistance. Medically stable. Currently awaiting authorization for discharge. Time Spent With Patient Time with patient: 25 - 35 minutes Subjective Date/time seen: 10/01/25 13:47 Interval history: No major acute overnight events. Patient denies any complaints including shortness of breath, chest pain, pain. He is pleasant and cooperative, patient waiting for insurance authorization. Review of Systems Review of Systems: All systems reviewed & are unremarkable except as noted in HPI and below (Subjective) Exam Const: General: comfortable and no acute distress Eyes: Pupils: Equal, round and reactive pupils present Neck: Neck: supple Resp: Effort & Inspection: normal respiratory effort Auscultation: clear to auscultation bilaterally Cardio: Rate: regular rate Rhythm: regular rhythm GI: Inspection: non-distended GI Palp: Yes Soft to palpation Extrem: General: no edema Objective Data Vital Signs Vital Signs: Vital Signs - 24 hr 09/30/25 14:00 09/30/25 20:00 09/30/25 21:04 Temperature 97.9 F Pulse Rate 71 85 85 Respiratory Rate 16 18 Blood Pressure 127/78 Pulse Oximetry 99 96 Oxygen Delivery Room Air 09/30/25 21:05 09/30/25 21:06 10/01/25 05:36 Temperature 98.5 F 97.6 F Pulse Rate 85 85 74 Respiratory Rate 18 18 Blood Pressure 124/71 123/78 Pulse Oximetry 96 98 Oxygen Delivery 10/01/25 08:00 10/01/25 08:42 10/01/25 08:47 Temperature Pulse Rate 74 74 Respiratory Rate Blood Pressure Pulse Oximetry Oxygen Delivery Room Air 10/01/25 11:21 Temperature 97.6 F Pulse Rate Respiratory Rate Blood Pressure Pulse Oximetry Oxygen Delivery Intake/Output Intake/Output: Intake & Output 09/28/25 09/29/25 09/30/25 10/01/25 23:59 23:59 23:59 23:59 Intake Total 1780 770 720 480 Output Total 1300 850 750 200 Balance 480 -80 -30 280 Meds/Results Medications: Active Medications Generic Name Dose Route Start Last Admin Trade Name Freq PRN Reason Stop Dose Admin Acetaminophen 650 mg 09/23/25 17:19 09/24/25 11:02 Acetaminophen 325 Mg Tablet PO 650 mg Q4H PRN Administration Mild Pain (1-3) or Fever Hydrocodone Bitart/Acetaminophen 1 tab 09/23/25 23:16 10/01/25 08:54 Hydrocodone/Acetaminophen (*Crx) 5-325 Mg Tablet PO 1 tab Q4H PRN Administration Pain Rated 4-6 Hydrocodone Bitart/Acetaminophen 1 tab 09/26/25 11:14 09/27/25 03:37 Hydrocodone/Acetaminophen (*Crx) 7.5-325 Mg Tablet PO 1 tab Q4H PRN Administration Pain Rated 7-10 Duloxetine HCl 60 mg 09/24/25 09:00 10/01/25 08:43 Duloxetine Hcl 60 Mg Capsule.Dr PO 60 mg DAILY FAUSTO Administration Dutasteride 0.5 mg 09/24/25 21:00 09/30/25 21:04 Dutasteride 0.5 Mg Capsule PO 0.5 mg QHS FAUSTO Administration Hydromorphone HCl 0.5 mg 09/23/25 17:19 09/23/25 21:31 Hydromorphone Hcl Inj (*Crx) 1 Mg/Ml Syr IV PUSH 0.5 mg Q4H PRN Administration Pain Rated 7-10 Ipratropium [place] 2 spray 09/24/25 09:00 10/01/25 08:43 Ipratropium Nasal [place] 0.03% 15 Ml Bottle NASAL 2 spray Q12HR FAUSTO Administration Irbesartan 75 mg 09/23/25 23:15 10/01/25 08:43 Irbesartan 75 Mg Tablet BY MOUTH 75 mg DAILY FAUSTO Administration Levetiracetam 500 mg 09/23/25 23:15 10/01/25 08:43 Levetiracetam 500 Mg Tablet PO 500 mg Q12HR FAUSTO Administration Lidocaine 1 patch 09/27/25 12:00 10/01/25 08:55 Lidocaine 5% Patch TRANSDERM Not Given DAILY FAUSTO Ondansetron HCl 4 mg 09/23/25 17:19 09/23/25 21:30 Ondansetron Inj 4 Mg/2 Ml Vial IV PUSH 4 mg Q4H PRN Administration Nausea Pantoprazole Sodium 40 mg 09/24/25 09:00 10/01/25 08:42 Pantoprazole 40 Mg Tablet PO 40 mg QAM FAUSTO Administration Psyllium Hydrophilic Mucilloid 1 packet 09/24/25 09:00 10/01/25 08:43 Psyllium Powder Packet BY MOUTH 1 packet DAILY FAUSTO Administration Senna/Docusate Sodium 1 tab 09/25/25 21:00 09/30/25 21:04 Senna/Docusate Sodium Tablet PO 1 tab HS FAUSTO Administration Sotalol HCl 40 mg 09/23/25 23:25 10/01/25 08:47 Sotalol Hcl 40 Mg Tablet PO 40 mg Q12HR FAUSTO Administration Sotalol HCl 80 mg 09/23/25 23:30 10/01/25 08:42 Sotalol Hcl 80 Mg Tablet PO 80 mg Q12HR FAUSTO Administration Tamsulosin HCl 0.4 mg 09/23/25 23:20 09/30/25 21:04 Tamsulosin Hcl 0.4 Mg Capsule PO 0.4 mg QHS FAUSTO Administration Warfarin Sodium 5 mg 09/24/25 17:00 09/30/25 17:47 Warfarin (*Pbkc) 5 Mg Tablet PO 5 mg [id number] [facility] Administration Warfarin Sodium 2.5 mg 09/27/25 17:00 09/29/25 17:58 Warfarin (*Pbkc) 2.5 Mg Tablet PO 2.5 mg TuTh@1700 [facility] Administration Radiology Results: ITS Impressions Shoulder X-Ray 09/23/25 13:31 Impression: Fracture detailed above Chest X-Ray 09/23/25 15:47 Impression: Early left lower lobe pneumonia Shoulder CT 09/23/25 19:01 IMPRESSION: 1. Computed 1 part fracture of the proximal left humerus. Head CT 09/24/25 10:41 IMPRESSION: 1. No acute intracranial findings. Abdomen X-Ray 09/27/25 14:17 Impression: 1. No acute abnormality. Labs Labs: Laboratory Results - last 24 hr 10/01/25 05:02 PT 22.0 H INR 1.9
[2025-10-01] MEDS: WARFARIN (*PBKC) 5 MG TABLET PO (16:58)
[2025-10-01] MEDS: SENNA/DOCUSATE SODIUM TABLET 1 TAB PO (20:34)
[2025-10-01] MEDS: TAMSULOSIN HCL 0.4 MG CAPSULE PO (20:34)
[2025-10-01] MEDS: DUTASTERIDE 0.5 MG CAPSULE PO (20:34)
[2025-10-02] VITALS (7 sets, daily range): BP systolic 103–115; BP diastolic 64–73; PULSE 65–80; RESP 16–18; TEMP 36.1–36.6; O2SAT 97–100
[2025-10-02] MEDS: HYDROcodone/acetaminophen (*CRX) 5-325 MG TABLET 1 TAB PO ×3 (05:39→16:51)
[2025-10-02 05:52] LABS: INR 2.1; Prothrombin Time 23.2 Seconds (11.1-14.7)
[2025-10-02] MEDS: PSYLLIUM POWDER PACKET 1 PACKET BY MOUTH (09:53)
[2025-10-02] MEDS: SOTALOL HCL 80 MG TABLET PO ×2 (09:53→21:03)
[2025-10-02] MEDS: PANTOPRAZOLE 40 MG TABLET PO (09:53)
[2025-10-02] MEDS: DULoxetine HCL 60 MG CAPSULE.DR PO (09:53)
[2025-10-02] MEDS: IRBESARTAN 75 MG TABLET BY MOUTH (09:53)
[2025-10-02] MEDS: IPRATROPIUM NASAL SPRAY 0.03% 15 ML BOTTLE 2 SPRAY NASAL ×2 (10:02→21:03)
--- NOTE | 2025-10-02 16:31 | P.PNIM_ITS ---
Progress Note: A&P Assessment and Plan (1) Fall: Code(s): W19.XXXA - Unspecified fall, initial encounter Status: Acute Assessment and Plan: Mechanical ground level fall after tripping over his foot onto his left side, denies LOC or head strike. Denies dizziness or lightheadedness prior to fall. On chronic anticoagulation. - Chest XR: Early left lower lobe pneumonia Afebrile with downtrending WBC despite no antibiotic intervention and asymptomatic, leukocytosis likely reactive to acute fracture. - Shoulder XR: Impacted nondisplaced fracture of the humeral neck. - Shoulder CT: Comminuted fracture of the proximal left humerus - Head CT: no acute intracranial findings - See plan below Endorsed low back pain that is chronic. Denies any associated tingling/numbness to the lower extremities different from baseline. Lidocaine patch ordered. (2) Closed left humeral fracture: Code(s): S42.302A - Unspecified fracture of shaft of humerus, left arm, initial encounter for closed fracture Status: Acute Assessment and Plan: Shoulder XR: Impacted nondisplaced fracture of the humeral neck. Shoulder CT: Comminuted fracture of the proximal left humerus - SCDs/TEDs, warfarin - analgesic: Tylenol 650 mg q4prn, [place] 5-325 mg q4prn, [place] 7.5-325 mg q4prn, and Dilaudid 0.5 mg IV q4prn well controlled, has been off of IV medications since 09/23 started on norco 7.5-325 mg q4prn for higher breakthrough pain during therapy - bowel regimen: Metamucil and senna - PT/OT ordered, follow weight restrictions per ortho recommendations Recommending Acute Rehab, patient agreeable. Care coordination working on placement. - Ortho consulted, appreciate recommendations Use the Left Upper extremity as he tolerates (ie for balance and ambulation and for transfers) Recommend rehab evaluation, recommend walker with left arm platform while at rehab Follow up with my office 1 week from time of discharge. Continue pain regimen as above. Working well with therapy. Awaiting placement for SNF. (3) Essential (primary) hypertension: Code(s): I10 - Essential (primary) hypertension Status: Acute Assessment and Plan: Chronic, continue home medications - irbesartan 75 mg daily - blood pressures reviewed and stable, continue to monitor (4) Unspecified atrial fibrillation: Qualifiers: Atrial fibrillation type: paroxysmal Qualified Code(s): I48.0 - Paroxysmal atrial fibrillation Code(s): I48.91 - Unspecified atrial fibrillation Status: Chronic Assessment and Plan: Chronic, currently in sinus rhythm Continue warfarin as previously prescribed, INR currently therapeutic Continue sotalol 120 mg BID (5) 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 According to his Debbie, the patient was bending down on the floor trying to plug something into the wall. He stated that he was down on 1 knee and stood up and lost his balance. He stated that he fell on his left side. He stated that he was in severe pain to the left arm. He denies hitting his head and he has chronic use of Coumadin. According to his Debbie, he is mentally at his baseline. The left hemiple demetrio is reportedly from his previous stroke. CT of left shoulder computed 1 part fracture of the proximal left humerus. Chest x-ray was read as early left lower lobe pneumonia. Shoulder x-ray was read as impacted nondisplaced fracture of the humeral neck. Severe degenerative changes. Soft tissue swelling. The patient was placed in a sling to the left arm and ortho has been consulted. The patient was given Dilaudid in the emergency room as well as IV fluids. His white count was noted to be 14.9. Sodium was slightly low at 136. Blood sugar 156. Admitted on 09/23/2025. Full code. Continue Coumadin. Fall precaution, ambulate with assistance. Medically stable. Currently awaiting authorization for discharge. Subjective Date/time seen: 10/02/25 16:31 Interval history: No major acute overnight events. Patient remains stable without any new complaints. Review of Systems Review of Systems: All systems reviewed & are unremarkable except as noted in HPI and below (Subjective) Exam Const: General: comfortable and no acute distress Other: A&O x4 Eyes: Pupils: Equal, round and reactive pupils present Neck: Neck: supple Resp: Effort & Inspection: normal respiratory effort Auscultation: clear to auscultation bilaterally Cardio: Rate: regular rate Rhythm: regular rhythm GI: Inspection: non-distended GI Palp: Yes Soft to palpation Extrem: General: no edema Objective Data Vital Signs Vital Signs: Vital Signs - 24 hr 10/01/25 20:00 10/01/25 20:34 10/01/25 20:36 Temperature Pulse Rate 89 89 89 Respiratory Rate 16 Blood Pressure Pulse Oximetry 96 Oxygen Delivery Room Air 10/01/25 20:44 10/02/25 05:47 10/02/25 08:00 Temperature 98.6 F 97 F L Pulse Rate 89 65 Respiratory Rate 16 18 Blood Pressure 116/70 103/73 Pulse Oximetry 96 100 Oxygen Delivery Room Air 10/02/25 09:53 10/02/25 09:53 10/02/25 14:00 Temperature 97.9 F Pulse Rate 65 65 73 Respiratory Rate 16 Blood Pressure 105/64 Pulse Oximetry 100 Oxygen Delivery Intake/Output Intake/Output: Intake & Output 09/29/25 09/30/25 10/01/25 10/02/25 23:59 23:59 23:59 23:59 Intake Total 770 720 950 580 Output Total 379 822 9115 150 Balance -80 -30 -50 430 Meds/Results Medications: Active Medications Generic Name Dose Route Start Last Admin Trade Name Freq PRN Reason Stop Dose Admin Acetaminophen 650 mg 09/23/25 17:19 09/24/25 11:02 Acetaminophen 325 Mg Tablet PO 650 mg Q4H PRN Administration Mild Pain (1-3) or Fever Hydrocodone Bitart/Acetaminophen 1 tab 09/23/25 23:16 10/02/25 10:01 Hydrocodone/Acetaminophen (*Crx) 5-325 Mg Tablet PO 1 tab Q4H PRN Administration Pain Rated 4-6 Hydrocodone Bitart/Acetaminophen 1 tab 09/26/25 11:14 09/27/25 03:37 Hydrocodone/Acetaminophen (*Crx) 7.5-325 Mg Tablet PO 1 tab Q4H PRN Administration Pain Rated 7-10 Duloxetine HCl 60 mg 09/24/25 09:00 10/02/25 09:53 Duloxetine Hcl 60 Mg Capsule.Dr PO 60 mg DAILY [facility]USTO Administration Dutasteride 0.5 mg 09/24/25 21:00 10/01/25 20:34 Dutasteride 0.5 Mg Capsule PO 0.5 mg QHS [facility]USTO Administration Hydromorphone HCl 0.5 mg 09/23/25 17:19 09/23/25 21:31 Hydromorphone Hcl Inj (*Crx) 1 Mg/Ml Syr IV PUSH 0.5 mg Q4H PRN Administration Pain Rated 7-10 Ipratropium [place] 2 spray 09/24/25 09:00 10/02/25 10:02 Ipratropium Nasal [place] 0.03% 15 Ml Bottle NASAL 2 spray Q12HR [facility]USTO Administration Irbesartan 75 mg 09/23/25 23:15 10/02/25 09:53 Irbesartan 75 Mg Tablet BY MOUTH 75 mg DAILY [facility]USTO Administration Levetiracetam 500 mg 09/23/25 23:15 10/02/25 09:52 Levetiracetam 500 Mg Tablet PO 500 mg Q12HR [facility]O Administration Lidocaine 1 patch 09/27/25 12:00 10/02/25 08:29 Lidocaine 5% Patch TRANSDERM Not Given DAILY [facility] Ondansetron HCl 4 mg 09/23/25 17:19 09/23/25 21:30 Ondansetron Inj 4 Mg/2 Ml Vial IV PUSH 4 mg Q4H PRN Administration Nausea Pantoprazole Sodium 40 mg 09/24/25 09:00 10/02/25 09:53 Pantoprazole 40 Mg Tablet PO 40 mg QAM [facility]USTO Administration Psyllium Hydrophilic Mucilloid 1 packet 09/24/25 09:00 10/02/25 09:53 Psyllium Powder Packet BY MOUTH 1 packet DAILY [facility]O Administration Senna/Docusate Sodium 1 tab 09/25/25 21:00 10/01/25 20:34 Senna/Docusate Sodium Tablet PO 1 tab HS [facility]USTO Administration Sotalol HCl 40 mg 09/23/25 23:25 10/02/25 09:53 Sotalol Hcl 40 Mg Tablet PO 40 mg Q12HR [facility]USTO Administration Sotalol HCl 80 mg 09/23/25 23:30 10/02/25 09:53 Sotalol Hcl 80 Mg Tablet PO 80 mg Q12HR FAUSTO Administration Tamsulosin HCl 0.4 mg 09/23/25 23:20 10/01/25 20:34 Tamsulosin Hcl 0.4 Mg Capsule PO 0.4 mg QHS FAUSTO Administration Warfarin Sodium 5 mg 09/24/25 17:00 10/01/25 16:58 Warfarin (*Pbkc) 5 Mg Tablet PO 5 mg [email or web address] FAUSTO Administration Warfarin Sodium 2.5 mg 09/27/25 17:00 09/29/25 17:58 Warfarin (*Pbkc) 2.5 Mg Tablet PO 2.5 mg TuTh@1700 [facility] Administration Radiology Results: ITS Impressions Shoulder X-Ray 09/23/25 13:31 Impression: Fracture detailed above Chest X-Ray 09/23/25 15:47 Impression: Early left lower lobe pneumonia Shoulder CT 09/23/25 19:01 IMPRESSION: 1. Computed 1 part fracture of the proximal left humerus. Head CT 09/24/25 10:41 IMPRESSION: 1. No acute intracranial findings. Abdomen X-Ray 09/27/25 14:17 Impression: 1. No acute abnormality. Labs Labs: Laboratory Results - last 24 hr 10/02/25 04:59 PT 23.2 H INR 2.1
[2025-10-02] MEDS: WARFARIN (*PBKC) 5 MG TABLET PO (16:51)
[2025-10-02] MEDS: TAMSULOSIN HCL 0.4 MG CAPSULE PO (21:02)
[2025-10-02] MEDS: DUTASTERIDE 0.5 MG CAPSULE PO (21:03)
[2025-10-02] MEDS: SENNA/DOCUSATE SODIUM TABLET 1 TAB PO (21:03)
[2025-10-03] MEDS: HYDROcodone/acetaminophen (*CRX) 5-325 MG TABLET 1 TAB PO ×2 (03:24→08:39)
[2025-10-03 05:46] LABS: INR 2.4; Prothrombin Time 26.1 Seconds (11.1-14.7)
[2025-10-03 06:58] VITALS: BP 107/68; PULSE 72; RESP 14; TEMP 36.7; O2SAT 96
[2025-10-03] MEDS: IRBESARTAN 75 MG TABLET BY MOUTH (08:37)
[2025-10-03 08:38] VITALS: PULSE 72
[2025-10-03] MEDS: DULoxetine HCL 60 MG CAPSULE.DR PO (08:38)
[2025-10-03] MEDS: SOTALOL HCL 80 MG TABLET PO (08:38)
[2025-10-03] MEDS: PANTOPRAZOLE 40 MG TABLET PO (08:38)
[2025-10-03 08:41] VITALS: PULSE 72; RESP 14; O2SAT 96
[2025-10-03] MEDS: IPRATROPIUM NASAL SPRAY 0.03% 15 ML BOTTLE 2 SPRAY NASAL (08:41)
--- NOTE | 2025-10-03 13:46 | PM.IMPN ---
Progress Note: A&P Assessment and Plan (1) Fall: Code(s): W19.XXXA - Unspecified fall, initial encounter Status: Acute Assessment and Plan: Mechanical ground level fall after tripping over his foot onto his left side, denies LOC or head strike. Denies dizziness or lightheadedness prior to fall. On chronic anticoagulation. - Chest XR: Early left lower lobe pneumonia Afebrile with downtrending WBC despite no antibiotic intervention and asymptomatic, leukocytosis likely reactive to acute fracture. - Shoulder XR: Impacted nondisplaced fracture of the humeral neck. - Shoulder CT: Comminuted fracture of the proximal left humerus - Head CT: no acute intracranial findings - See plan below Endorsed low back pain that is chronic. Denies any associated tingling/numbness to the lower extremities different from baseline. Lidocaine patch ordered. (2) Closed left humeral fracture: Code(s): S42.302A - Unspecified fracture of shaft of humerus, left arm, initial encounter for closed fracture Status: Acute Assessment and Plan: Shoulder XR: Impacted nondisplaced fracture of the humeral neck. Shoulder CT: Comminuted fracture of the proximal left humerus - SCDs/TEDs, warfarin -continue current pain regimen and bowel regimen. -continue PT/OT, disposition pending, spoke with insurance and it seems they will approve on 10/03/2025. - Ortho consulted, appreciate recommendations Use the Left Upper extremity as he tolerates (ie for balance and ambulation and for transfers) Follow-up with orthopedic surgery 1 week after discharge (3) Essential (primary) hypertension: Code(s): I10 - Essential (primary) hypertension Status: Acute Assessment and Plan: Chronic, continue home medications - irbesartan 75 mg daily - blood pressures reviewed and stable, continue to monitor (4) Unspecified atrial fibrillation: Qualifiers: Atrial fibrillation type: paroxysmal Qualified Code(s): I48.0 - Paroxysmal atrial fibrillation Code(s): I48.91 - Unspecified atrial fibrillation Status: Chronic Assessment and Plan: Chronic, currently in sinus rhythm Continue warfarin as previously prescribed, INR currently therapeutic Continue sotalol 120 mg BID (5) 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 (6) Seizure disorder: Code(s): G40.909 - Epilepsy, unspecified, not intractable, without status epilepticus Status: Acute Assessment and Plan: Continue keppra 500 mg BID Plan 75-year-old male with history of hemorrhagic stroke in 2012 with chronic left hemiplegia, BPH, anemia, depression, GERD, history of DVT, peripheral neuropathy, hypertension, atrial fibrillation. According to his Debbie, the patient was bending down on the floor trying to plug something into the wall. He stated that he was down on 1 knee and stood up and lost his balance. He stated that he fell on his left side. He stated that he was in severe pain to the left arm. He denies hitting his head and he has chronic use of Coumadin. According to his Debbie, he is mentally at his baseline. The left hemiplegia is reportedly from his previous stroke. CT of left shoulder computed 1 part fracture of the proximal left humerus. Chest x-ray was read as early left lower lobe pneumonia. Shoulder x-ray was read as impacted nondisplaced fracture of the humeral neck. Severe degenerative changes. Soft tissue swelling. The patient was placed in a sling to the left arm and ortho has been consulted. The patient was given Dilaudid in the emergency room as well as IV fluids. His white count was noted to be 14.9. Sodium was slightly low at 136. Blood sugar 156. Admitted on 09/23/2025. Full code. Continue Coumadin. Fall precaution, ambulate with assistance. Medically stable. Currently awaiting authorization for discharge. Over 55 minutes spent on patient evaluation, multiple discussion with social staff worker and coordination with the patient's independent insurance adjuster. Subjective Date/time seen: 10/03/25 13:46 Interval history: No major acute overnight events. Patient remains stable without any new complaints. Review of Systems Review of Systems: All systems reviewed & are unremarkable except as noted in HPI and below (Subjective) Exam Const: General: comfortable and no acute distress Other: A&O x4 Eyes: Pupils: Equal, round and reactive pupils present Neck: Neck: supple Resp: Effort & Inspection: normal respiratory effort Auscultation: clear to auscultation bilaterally Cardio: Rate: regular rate Rhythm: regular rhythm GI: Inspection: non-distended GI Palp: Yes Soft to palpation Extrem: General: no edema Objective Data Vital Signs Vital Signs: Vital Signs - 24 hr 10/02/25 14:00 10/02/25 20:00 10/02/25 21:02 Temperature 97.9 F Pulse Rate 73 80 79 Respiratory Rate 16 16 Blood Pressure 105/64 Pulse Oximetry 100 97 Oxygen Delivery Room Air 10/02/25 21:03 10/02/25 21:30 10/03/25 06:58 Temperature 97.6 F 98.0 F Pulse Rate 79 80 72 Respiratory Rate 16 14 Blood Pressure 115/67 107/68 Pulse Oximetry 97 96 Oxygen Delivery 10/03/25 08:38 10/03/25 08:38 10/03/25 08:41 Temperature Pulse Rate 72 72 72 Respiratory Rate 14 Blood Pressure Pulse Oximetry 96 Oxygen Delivery Room Air Intake/Output Intake/Output: Intake & Output 09/30/25 10/01/25 10/02/25 10/03/25 23:59 23:59 23:59 23:59 Intake Total 982 485 6923 680 Output Total 750 1000 450 300 Balance -30 -50 620 380 Meds/Results Medications: Active Medications Generic Name Dose Route Start Last Admin Trade Name Freq PRN Reason Stop Dose Admin Acetaminophen 650 mg 09/23/25 17:19 09/24/25 11:02 Acetaminophen 325 Mg Tablet PO 650 mg Q4H PRN Administration Mild Pain (1-3) or Fever Hydrocodone Bitart/Acetaminophen 1 tab 09/23/25 23:16 10/03/25 08:39 Hydrocodone/Acetaminophen (*Crx) 5-325 Mg Tablet PO 10/12/25 23:59 1 tab Q4H PRN Administration Pain Rated 4-6 Hydrocodone Bitart/Acetaminophen 1 tab 09/26/25 11:14 09/27/25 03:37 Hydrocodone/Acetaminophen (*Crx) 7.5-325 Mg Tablet PO 1 tab Q4H PRN Administration Pain Rated 7-10 Duloxetine HCl 60 mg 09/24/25 09:00 10/03/25 08:38 Duloxetine Hcl 60 Mg Capsule.Dr PO 60 mg DAILY FAUSTO Administration Dutasteride 0.5 mg 09/24/25 21:00 10/02/25 21:03 Dutasteride 0.5 Mg Capsule PO 0.5 mg QHS FAUSTO Administration Hydromorphone HCl 0.5 mg 09/23/25 17:19 09/23/25 21:31 Hydromorphone Hcl Inj (*Crx) 1 Mg/Ml Syr IV PUSH 0.5 mg Q4H PRN Administration Pain Rated 7-10 Ipratropium [place] 2 spray 09/24/25 09:00 10/03/25 08:41 Ipratropium Nasal [place] 0.03% 15 Ml Bottle NASAL 2 spray Q12HR FAUSTO Administration Irbesartan 75 mg 09/23/25 23:15 10/03/25 08:37 Irbesartan 75 Mg Tablet BY MOUTH 75 mg DAILY FAUSTO Administration Levetiracetam 500 mg 09/23/25 23:15 10/03/25 08:39 Levetiracetam 500 Mg Tablet PO 500 mg Q12HR FAUSTO Administration Lidocaine 1 patch 09/27/25 12:00 10/03/25 08:38 Lidocaine 5% Patch TRANSDERM Not Given DAILY [facility] Miscellaneous Information 1 each 10/03/25 00:01 10/03/25 11:28 Iv Dilaudid Needs To Be Renewed Or It Will Automatically Discontinue. XX 11/02/25 00:00 Not Given [facility] Ondansetron HCl 4 mg 09/23/25 17:19 09/23/25 21:30 Ondansetron Inj 4 Mg/2 Ml Vial IV PUSH 4 mg Q4H PRN Administration Nausea Pantoprazole Sodium 40 mg 09/24/25 09:00 10/03/25 08:38 Pantoprazole 40 Mg Tablet PO 40 mg QAM [facility] Administration Psyllium Hydrophilic Mucilloid 1 packet 09/24/25 09:00 10/03/25 08:40 Psyllium Powder Packet BY MOUTH Not Given DAILY [facility] Senna/Docusate Sodium 1 tab 09/25/25 21:00 10/02/25 21:03 Senna/Docusate Sodium Tablet PO 1 tab HS FAUSTO Administration Sotalol HCl 40 mg 09/23/25 23:25 10/03/25 08:38 Sotalol Hcl 40 Mg Tablet PO 40 mg Q12HR [facility]O Administration Sotalol HCl 80 mg 09/23/25 23:30 10/03/25 08:38 Sotalol Hcl 80 Mg Tablet PO 80 mg Q12HR [facility]USTO Administration Tamsulosin HCl 0.4 mg 09/23/25 23:20 10/02/25 21:02 Tamsulosin Hcl 0.4 Mg Capsule PO 0.4 mg QHS FAUSTO Administration Warfarin Sodium 5 mg 09/24/25 17:00 10/02/25 16:51 Warfarin (*Pbkc) 5 Mg Tablet PO 5 mg [id number] [facility] Administration Warfarin Sodium 2.5 mg 09/27/25 17:00 09/29/25 17:58 Warfarin (*Pbkc) 2.5 Mg Tablet PO 2.5 mg TuTh@1700 [facility] Administration Radiology Results: ITS Impressions Shoulder X-Ray 09/23/25 13:31 Impression: Fracture detailed above Chest X-Ray 09/23/25 15:47 Impression: Early left lower lobe pneumonia Shoulder CT 09/23/25 19:01 IMPRESSION: 1. Computed 1 part fracture of the proximal left humerus. Head CT 09/24/25 10:41 IMPRESSION: 1. No acute intracranial findings. Abdomen X-Ray 09/27/25 14:17 Impression: 1. No acute abnormality. Labs Labs: Laboratory Results - last 24 hr 10/03/25 05:10 PT 26.1 H INR 2.4
[2025-10-03 14:00] VITALS: BP 110/68; PULSE 74; RESP 16; TEMP 36.4; O2SAT 99
--- NOTE | 2025-10-03 15:13 | PM.DS ---
DS: Admitting Diagnosis Discharge Date 10/03/2025 Admitting Diagnosis Ground level fall DS: Discharge Diagnosis Discharge Diagnosis (1) Closed fracture of left proximal humerus: Qualifiers: Encounter type: initial encounter Fracture morphology: other fracture Fracture alignment: displaced Qualified Code(s): S42.292A - Other displaced fracture of upper end of left humerus, initial encounter for closed fracture Code(s): S42.202A - Unspecified fracture of upper end of left humerus, initial encounter for closed fracture Status: Acute DS: Summary Hospital Course Hospital Course: 75-year-old male with history of hemorrhagic stroke in 2012 with chronic left hemiplegia, BPH, anemia, depression, GERD, history of DVT, peripheral neuropathy, hypertension, atrial fibrillation. According to his Debbie, the patient was bending down on the floor trying to plug something into the wall. He stated that he was down on 1 knee and stood up and lost his balance. He stated that he fell on his left side. He stated that he was in severe pain to the left arm. He denies hitting his head and he has chronic use of Coumadin. According to his Debbie, he is mentally at his baseline. The left hemiplegia is reportedly from his previous stroke. CT of left shoulder computed 1 part fracture of the proximal left humerus. Chest x-ray was read as early left lower lobe pneumonia. Shoulder x-ray was read as impacted nondisplaced fracture of the humeral neck. Severe degenerative changes. Soft tissue swelling. The patient was placed in a sling to the left arm and ortho has been consulted. The patient was given Dilaudid in the emergency room as well as IV fluids. His white count was noted to be 14.9. Sodium was slightly low at 136. Blood sugar 156. Admitted on 09/23/2025. ----- Found to have impacted nondisplaced fracture of the humeral neck left side, comminuted fracture of proximal left humerus. Head CT no acute findings. Pain was well controlled. Patient seen by Orthopedic surgery, advised to use left upper extremity as tolerated, patient did well. [facility] Follow-up with orthopedic surgery in the outpatient setting, history of AFib on warfarin. INR therapeutic. Continue warfarin. Time Spent with Patient Time attestation: Total time spent providing and/or coordinating discharge services: Time spent: Greater than 30 minutes Exam Const: General: comfortable and no acute distress Other: A&O x4 Eyes: Pupils: Equal, round and reactive pupils present Neck: Neck: supple Resp: Effort & Inspection: normal respiratory effort Auscultation: clear to auscultation bilaterally Cardio: Rate: regular rate Rhythm: regular rhythm GI: Inspection: non-distended GI Palp: Yes Soft to palpation Extrem: General: no edema DS: Data Data Completed and Pending Labs on day of discharge: Labs from last 24 hours 10/03/25 05:10 PT 26.1 H INR 2.4 Discharge Plan Discharge Attending physician on discharge: Deanna Vanegas Consulting providers: Mitchell Lawson; Celina Yen Discharging Clinician: Deanna Vanegas Patient Disposition: SNF Activity: march shower Diet: as tolerated Discharge Instructions: Continue PT/OT evaluations and therapy. Follow-up with PCP or assisted clinician within 7 days. Wound care per protocol. Patient Instructions: Blood Thinners (GEN) Patient Language: [place] Stand Alone Forms: General Discharge Information Discharge Medications: Continued sotalol 120 mg tablet 120 mg PO Q12H warfarin 5 mg tablet 5 mg PO QHS Rx Instructions: TUES AND THURS 2.5MG. SUN, MON, WEDS, FRI, SAT 5MG warfarin 2.5 mg tablet 2.5 mg PO 2XW Rx Instructions: TUES AND THURS 2.5MG. SUN, MON, WEDS, FRI, SAT 5MG psyllium husk [Metamucil] 0.4 gram capsule 0.4 g PO BID tamsulosin [Flomax] 0.4 mg capsule 0.4 mg PO QHS ipratropium bromide 21 mcg (0.03 %) spray,non-aerosol 2 spray intranasal BID Rx Instructions: administer into each nostril. Aim back/up/out dutasteride [Avodart] 0.5 mg capsule 0.5 mg PO QHS levetiracetam [Keppra] 1,000 mg tablet 500 mg PO Q12H duloxetine 60 mg capsule,delayed release(DR/EC) 60 mg PO DAILY Qty: 90 1RF irbesartan 75 mg tablet See Rx Instructions .ROUTE .COMPLEX Qty: 90 1RF Dose Instruction: TAKE 1 TABLET BY MOUTH EVERY MORNING Rx Instructions: TAKE 1 TABLET BY MOUTH EVERY MORNING omeprazole 20 mg capsule,delayed release(DR/EC) See Rx Instructions .ROUTE .COMPLEX Qty: 90 1RF Dose Instruction: TAKE 1 CAPSULE BY MOUTH DAILY Rx Instructions: TAKE 1 CAPSULE BY MOUTH DAILY Date of admission: 09/24/25 15:53 Primary Care Provider: Jose Jacome Admitting Provider: Emile Muniz Attending physician on admission: Emile Muniz Condition: Stable Hospitalist MIPS Heart Failure (Exclusion) Patient has history of Heart Transplant or Left Ventricular Assistive Device?: No IF YES, STOP HERE Heart Failure (Qualifier) Patient has current or prior documentation of LVEF less than or equal to 40%, or mod/servere depressed LVSF?: No IF NO, STOP HERE
== END 2025-10-03 16:00 | DRG 562 ==
LOC: ANHED 17:09 → ANH2MED 18:24
PROVIDERS: Nurse Practitioner; Student in an Organized Health Care Education/Training Program; Admitting Provider Internal Medicine; Emergency Provider Emergency Medicine; PCP Family Medicine; Visit Provider General Practice
DX: S42.215A Unspecified nondisplaced fracture of surgical neck of left humerus, initial encounter for closed fracture (principal); J18.9 Pneumonia, unspecified organism; I69.254 Hemiplegia and hemiparesis following other nontraumatic intracranial hemorrhage affecting left non-dominant side; I10 Essential (primary) hypertension; N40.1 Benign prostatic hyperplasia with lower urinary tract symptoms; I48.0 Paroxysmal atrial fibrillation; K21.9 Gastro-esophageal reflux disease without esophagitis; G62.9 Polyneuropathy, unspecified; E78.6 Lipoprotein deficiency; E78.5 Hyperlipidemia, unspecified; G40.909 Epilepsy, unspecified, not intractable, without status epilepticus; F32.9 Major depressive disorder, single episode, unspecified; D64.9 Anemia, unspecified; M54.59 Other low back pain; W18.39XA Other fall on same level, initial encounter; Z95.828 Presence of other vascular implants and grafts; Z91.81 History of falling; Z86.718 Personal history of other venous thrombosis and embolism; Z79.01 Long term (current) use of 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
CPT/HCPCS: 36415; 70450; 71045; 73030; 73200; 74018; 80048; 80053; 80177; 82948; 83735; 85025; 85027; 85610; 93005; 96361; 96374; 96375; 96376; 97110; 97116; 97161; 97165; 97530; 97535; 99285; A4565; A9270; G0378; J1171; J2405; J7030

== ENCOUNTER 2025-11-04 13:20 | Outpatient (CLI) | payer MEDICARE, SELFPAY ==
--- NOTE | ~2025-11-04 | US_ITS ---
EXAMINATION: US carotid duplex BI DATE: 11/04/2025 14:54 INDICATION: Possible stroke TECHNIQUE: Grayscale, color Doppler, and pulsed Doppler images of the cervical carotid arteries were obtained. The degree of vessel stenosis is placed in one of the following categories: normal, <50%, 50-69%, >=70% but less than near- occlusion, near-occlusion, or total occlusion. Note that percent stenosis relative to normal distal artery lumen diameter is indirectly measured from velocity measurements as described by Yosi, et al. Radiology 2003; 229:340-346. COMPARISON: None. FINDINGS: RIGHT: The right common carotid artery (CCA) peak systolic velocity (PSV) is 34.8 cm/s. The right internal carotid artery (ICA) PSV is 0 cm/s. The right ICA end- diastolic velocity (EDV) is 0 cm/s. The right ICA/CCA PSV ratio is 0. Grayscale and color Doppler images yield an estimate of % diameter reduction from plaque in the ICA. There is antegrade flow in the right vertebral artery. LEFT: The left CCA PSV is 47 cm/s. The left ICA PSV is 59 cm/s. The left ICA EDV is 20 cm/s. The left ICA/CCA PSV ratio is 1.3. Grayscale and color Doppler images yield an estimate of less than 50% diameter reduction from plaque in the ICA. There is antegrade flow in the left vertebral artery. IMPRESSION: 1. Apparent complete occlusion right ICA. 2. Less than 50% stenosis in the left internal carotid artery. 3. Correlate with dedicated CT angiography of the head and neck. Reviewed, dictated and finalized at location A. [facility] [employer]
== END 2025-11-04 13:21 | disposition home or self-care (01) ==
PROVIDERS: PCP Family Medicine; Visit Provider Psychiatry & Neurology Neurology
DX: I63.9 Cerebral infarction, unspecified (principal); I65.22 Occlusion and stenosis of left carotid artery
CPT/HCPCS: 93880